=== PATIENT | female | born 1945 | race Caucasian/White ===

== ENCOUNTER 2020-07-03 14:18 | Emergency (ER) | payer MEDICARE, BC, SELFPAY ==
[2020-07-03 14:20] VITALS: BP 185/69; PULSE 93; RESP 20; TEMP 36.4; O2SAT 98
--- NOTE | 2020-07-03 14:33 | ED.GENADULT ---
HPI - General Adult General Chief complaint: Extremity Injury, Upper Stated complaint: laceration to right thumb Time Seen by Provider: 07/03/20 14:20 Source: patient Mode of arrival: ambulatory Limitations: no limitations History of Present Illness HPI narrative: Patient is a 74-year-old female who presents with skin avulsion of the right thumb that occurred while using her mandolin cooking device patient notes aching pain difficulty getting the bleeding to stop notes her tetanus is not up-to-date presents in no distress denies other complaints or concerns Related Data Allergies Allergy/AdvReac Type Severity Reaction Status Date / Time codeine Allergy Muscle Pain Verified 07/03/20 14:23 Review of Systems Review of Systems: Narrative: CONSTITUTIONAL: Denies fever, chills, or sweats. ENT: Denies rhinorrhea, congestion, sore throat, or otalgia. RESPIRATORY: Denies cough or dyspnea. SKIN: Positive for skin avulsion Plan MUSCULOSKELETAL: Denies joint pain NEUROLOGIC: Denies numbness, or weakness. PSYCHIATRIC: Denies anxiety or depression. [facility] Past Medical History Medical History (Updated 07/03/20 @ 14:38 by Solitario Paz PA-C) Obesity Social History Social History (Updated 07/03/20 @ 14:36 by Solitario Paz PA-C) Smoking status: Never smoker Exam Narrative: Exam Narrative: GENERAL: Well-appearing, well-nourished, and in no acute distress. HEAD: Normocephalic, atraumatic. EYES: PERRLA and EOMI. ENT: Nares clear, no rhinorrhea or epistaxis. Mucous membranes moist. EXTREMITIES: Normal range of motion. No edema. SKIN: Warm, dry, no rash. 1 cm skin avulsion that is superficial to the distal right thumb NEURO: No focal deficits. Alert and oriented x3.Neurovascularly intact PSYCH: Normal mood and affect. Course Course Emergency Course: Patient in the room in no distress aware of case findings treatment plan diagnosis Vital Signs Vital signs: Vital Signs Temperature 97.6 F 07/03/20 14:20 Pulse Rate 93 07/03/20 14:20 Respiratory Rate 20 07/03/20 14:20 Blood Pressure 185/69 H 07/03/20 14:20 Pulse Oximetry 98 07/03/20 14:20 Temperature 97.6 F 07/03/20 14:20 Pulse Rate 93 07/03/20 14:20 Respiratory Rate 20 07/03/20 14:20 Blood Pressure 185/69 H 07/03/20 14:20 Pulse Oximetry 98 07/03/20 14:20 Procedures Other Procedure Procedure 1: Other Procedure: let and surgicell applied with hemostasis acheived Medical Decision Making MDM Narrative Medical decision making narrative: Patients injury or pain is consistent with musculoskeletal etiology. No signs of neurological or vascular compromise on exam. Compartments and tisues are soft without signs of compartment syndrome. Pain is felt appropriate for further evaluation on an outpatient basis. Vital Signs Vital Signs: Vital Signs Temperature 97.6 F 07/03/20 14:20 Pulse Rate 93 07/03/20 14:20 Respiratory Rate 20 07/03/20 14:20 Blood Pressure 185/69 H 07/03/20 14:20 Pulse Oximetry 98 07/03/20 14:20 Temperature 97.6 F 07/03/20 14:20 Pulse Rate 93 07/03/20 14:20 Respiratory Rate 20 07/03/20 14:20 Blood Pressure 185/69 H 07/03/20 14:20 Pulse Oximetry 98 07/03/20 14:20 Discharge Plan Discharge Clinical Impression: Avulsion of skin Patient Disposition: Home, Self-Care Condition: Stable Instructions: Antibiotic Form, Skin Avulsion (ED) Additional Instructions: Follow up with primary care in the next 7 days for reevaluation return if symptoms worsen or concerns, any increase in redness swelling pain or fever over 100.5 Follow patient education sheets clean with mild soapy water and apply antibiotic ointment and clean dressing at least three times daily Follow-up/Referrals: Fritz Murillo Jr., MD [Physician] - PHYSICIAN,ASSISTANT MERCHANDISE MANAGER [Primary Care Provider] -
[2020-07-03] MEDS: TETANUS,DIPHTHERIA,AC PERTUSSIS ADULT (0.5 ML) BOOSTRIX IM (14:44)
[2020-07-03] MEDS: LIDOCAINE, EPINEPHRINE, TETRACAINE VISCOUS SOLN 3 ML TOPICAL (14:44)
[2020-07-03] MEDS: CELLULOSE OXIDIZED 2 x 14 INCH 1 PKT XX (14:44)
== END 2020-07-03 15:40 | disposition home or self-care (01) ==
LOC: ANHED 15:42
PROVIDERS: Emergency Provider Emergency Medicine
DX: S61.001A Unspecified open wound of right thumb without damage to nail, initial encounter (principal); E66.9 Obesity, unspecified; Z68.41 Body mass index [BMI] 40.0-44.9, adult; Z23 Encounter for immunization; W27.4XXA Contact with kitchen utensil, initial encounter
CPT/HCPCS: 12001; 90471; 90715; 99282

== ENCOUNTER 2020-10-15 10:30 | Outpatient (CLI) | payer MEDICARE, BC, SELFPAY ==
[2020-10-15 11:00] LABS: Basophils Percent Auto 0.3 % (0.2-1.2); Eosinophils Percent Auto 1.2 % (0-4.4); Hemoglobin 13.5 g/dL (12.0-15.0); Immature Granulocyte Absolute 0.03 K/mm3 (0.00-0.031); Immature Granulocyte Percent A 0.9 % (0-0.5); Immature Platelet Fraction Pct 7.6 % (0.9-11.2); Lymphocytes Percent Auto 39.8 % (18.3-44.2); Mean Corpuscular HGB Conc 33.8 g/dl (32-36); Mean Corpuscular Hemoglobin 30.5 pg (26-34); Mean Corpuscular Volume 90.3 fl (80-100); Mean Platelet Volume 11.3 fl (7.4-10.4); Monocytes Absolute Auto 0.7 K/mm3 (0.1-0.6); Monocytes Percent Auto 21.7 % (2.6-8.5); Neutrophils Absolute Auto 1.2 K/mm3 (1.3-6.7); Neutrophils Percent Auto 36.1 % (45.5-73.1); Platelet Count Result 113 k/mm3 (150-375); Red Blood Count 4.43 M/mm3 (4.2-5.4); Red Cell Distribution Width 13.1 % (11.5-14.5); White Blood Count 3.3 K/mm3 (4.5-10.0)
[2020-10-15 11:50] LABS: Alanine Aminotransferase 22 U/L (4-35); Albumin Level 3.9 g/dL (3.5-5.1); Alkaline Phosphatase 54 U/L (38-126); Anion Gap 8 mmol/L (8-16); Aspartate Amino Transferase 38 U/L (14-36); Bilirubin,Total 1.8 mg/dL (0.2-1.3); Blood Urea Nitrogen 13 mg/dL (7-17); Calcium 9.3 mg/dL (8.4-10.2); Carbon Dioxide 23 mmol/L (22-30); Chloride 110 mmol/L (98-107); Cholesterol 192 mg/dL (0-200); Estimated Glomerular Filt Rate > 60; Glucose 106 mg/dL (65-105); HDL Direct 59 mg/dL; Sodium 141 mmol/L (137-145); Triglycerides 93 mg/dL (<150)
[2020-10-15 12:00] LABS: LDL Cholesterol Direct 80 mg/dL
[2020-10-15 13:12] LABS: Hemoglobin A1C 5.6 % (<5.7)
== END 2020-10-15 10:31 | disposition home or self-care (01) ==
PROVIDERS: PCP Physician Assistant; Visit Provider Physician Assistant
DX: E11.9 Type 2 diabetes mellitus without complications (principal)
CPT/HCPCS: 36415; 80053; 80061; 83036; 84443; 85025; 85055

== ENCOUNTER 2020-10-27 10:36 | Outpatient (CLI) | payer MEDICARE, BC, SELFPAY ==
--- NOTE | ~2020-10-27 | MM_ITS ---
EXAMINATION: MM screening franky BI w guillermina HISTORY: Screening mammogram TECHNIQUE: Craniocaudal and mediolateral oblique 3-D tomosynthesis images were obtained and synthetic 2-D images were generated. CAD analysis was submitted and interpreted. COMPARISON: No prior mammogram is available for comparison at this institution. BREAST PARENCHYMAL COMPOSITION: The breasts are almost entirely fatty. FINDINGS: There is no evidence of suspicious mass, calcification, or architectural distortion to sugg est malignancy in either breast. There has been no suspicious interval change. IMPRESSION: 1. No mammographic evidence of malignancy. 2. Recommend routine screening mammography in one year. BI-RADS Category 1: Negative Reviewed, dictated and finalized at location A.
== END 2020-10-27 10:37 | disposition home or self-care (01) ==
LOC: ANHIMG 10:40
PROVIDERS: PCP Physician Assistant; Visit Provider Physician Assistant
DX: Z12.31 Encounter for screening mammogram for malignant neoplasm of breast (principal)
CPT/HCPCS: 77063; 77067

== ENCOUNTER 2020-12-28 15:56 | Outpatient (CLI) | payer MEDICARE, BC, SELFPAY ==
[2020-12-28 16:15] LABS: Basophils Percent Auto 0.2 % (0.2-1.2); Eosinophils Absolute Auto 0.1 K/mm3 (0-0.3); Eosinophils Percent Auto 1.5 % (0-4.4); Hematocrit 37.7 % (37.0-47.0); Hemoglobin 12.9 g/dL (12.0-15.0); Immature Granulocyte Absolute 0.12 K/mm3 (0.00-0.031); Immature Granulocyte Percent A 2.9 % (0-0.5); Lymphocytes Absolute Auto 1.45 K/mm3 (0.9-3.2); Lymphocytes Percent Auto 35.5 % (18.3-44.2); Mean Corpuscular HGB Conc 34.2 g/dl (32-36); Mean Corpuscular Volume 90.6 fl (80-100); Mean Platelet Volume 10.1 fl (7.4-10.4); Monocytes Absolute Auto 0.9 K/mm3 (0.1-0.6); Monocytes Percent Auto 21.1 % (2.6-8.5); Neutrophils Absolute Auto 1.6 K/mm3 (1.3-6.7); Neutrophils Percent Auto 38.8 % (45.5-73.1); Platelet Count Result 137 k/mm3 (150-375); Red Blood Count 4.16 M/mm3 (4.2-5.4); Red Cell Distribution Width 13.7 % (11.5-14.5); White Blood Count 4.1 K/mm3 (4.5-10.0)
[2020-12-28 16:35] LABS: Alanine Aminotransferase 27 U/L (4-35); Albumin Level 3.9 g/dL (3.5-5.1); Alkaline Phosphatase 89 U/L (38-126); Anion Gap 6 mmol/L (8-16); Aspartate Amino Transferase 34 U/L (14-36); Bilirubin,Total 1.1 mg/dL (0.2-1.3); Blood Urea Nitrogen 12 mg/dL (7-17); Calcium 9.8 mg/dL (8.4-10.2); Carbon Dioxide 25 mmol/L (22-30); Chloride 107 mmol/L (98-107); Estimated Glomerular Filt Rate > 60; Glucose 157 mg/dL (65-110); Potassium 3.8 mmol/L (3.4-5.0); Sodium 138 mmol/L (137-145)
== END 2020-12-28 15:57 | disposition home or self-care (01) ==
PROVIDERS: PCP Physician Assistant; Visit Provider Physician Assistant
DX: L03.115 Cellulitis of right lower limb (principal)
CPT/HCPCS: 36415; 80053; 85025

== ENCOUNTER → 2021-04-20 10:28 | Outpatient (CLI) | payer MEDICARE, BC, SELFPAY ==
--- NOTE | ~2021-04-20 | DEXA_ITS ---
Bone Density Report Name: JORY SMITH Age: 75 Sex: Female Ethnicity: White Date of : 1945 Indication: postmenopausal; screening for osteoporosis; height loss; prior fracture; Referring Provider: ROYAL, WILLOW Huffman Study: Bone densitometry was performed. Exam Date: April 20, 2021 Accession number: [id number] Bone Density: Region BMD T-score Z-score Classification AP Spine (L1-L4) 1.196 1.4 3.7 Normal Femoral Neck (Left) 0.908 0.5 2.5 Normal Total Hip (Left) 1.092 1.2 2.9 Normal Femoral Neck (Right) 0.829 -0.2 1.8 Normal Total Hip (Right) 1.066 1.0 2.7 Normal Total Hip Mean 1.079 1.1 2.8 Normal World Health Organization criteria for BMD impression classify patients as: Normal (T-score at or above -1.0), Osteopenia (T-score between -1.0 and -2.5), or Osteoporosis (T-score at or below -2.5). 10-year Fracture Risk: FRAX not reported because: All T-scores for Spine Total, Hip Total, Femoral Neck at or above -1.0 Clinical Information Provided by Patient: Has had a low trauma fracture Has used the following medications: Vitamin D Patient maximum height was 69.5 Menopause Age: 59 No regular weight bearing exercise Drinks caffeinated beverages Onset of menses at age 14 Number of children 0 Impression: The patient has normal bone mass. The patient has risk factors, including: previous fracture. Discussion: BONE DENSITY IS ABOVE THE MINIMUM DESIRABLE LEVEL AT ALL SKELETAL SITES TESTED. This patient?s bone mineral density is above the minimum desirable level (T-score -1.0 or better) at all sites measured. The patient should follow a healthful lifestyle (good nutrition with adequate calcium and vitamin D, and appropriate weight-bearing exercise). Follow-Up: Consider repeating this study in 5 years or sooner if there is some new clinical indication. Reported by: RIA on 04/20/2021 11:18:00 AM. Reviewed, dictated and finalized at location ARishabh REHMAN
== END ==
PROVIDERS: PCP Physician Assistant; Visit Provider Physician Assistant
DX: Z78.0 Asymptomatic menopausal state (principal)
CPT/HCPCS: 77080

== ENCOUNTER 2022-06-20 23:32 | Emergency (ER) | payer MEDICARE, BC, SELFPAY ==
[2022-06-20 23:45] VITALS: BP 200/94; PULSE 84; RESP 20; TEMP 36.8; O2SAT 100
[2022-06-21 00:37] LABS: Basophils Percent Auto 0.3 % (0.2-1.2); Eosinophils Percent Auto 0.5 % (0-4.4); Hematocrit 37.4 % (37.0-47.0); Hemoglobin 12.6 g/dL (12.0-15.0); Immature Granulocyte Absolute 0.06 K/mm3 (0.00-0.031); Immature Granulocyte Percent A 1.5 % (0-0.5); Immature Platelet Fraction Pct 4.1 % (0.9-11.2); Lymphocytes Absolute Auto 1.33 K/mm3 (0.9-3.2); Lymphocytes Percent Auto 33.9 % (18.3-44.2); Mean Corpuscular HGB Conc 33.7 g/dl (32-36); Mean Corpuscular Volume 91.9 fl (80-100); Monocytes Percent Auto 24.2 % (2.6-8.5); Neutrophils Absolute Auto 1.6 K/mm3 (1.3-6.7); Neutrophils Percent Auto 39.6 % (45.5-73.1); Platelet Count Result 133 k/mm3 (150-375); Red Blood Count 4.07 M/mm3 (4.2-5.4); Red Cell Distribution Width 13.4 % (11.5-14.5); White Blood Count 3.9 K/mm3 (4.5-10.0)
[2022-06-21 00:51] LABS: Alanine Aminotransferase 33 U/L (6-35); Albumin Level 4.1 g/dL (3.5-5.1); Alkaline Phosphatase 96 U/L (38-126); Anion Gap 4 mmol/L (8-16); Aspartate Amino Transferase 44 U/L (14-36); Bilirubin,Total 1.2 mg/dL (0.2-1.3); Blood Urea Nitrogen 15 mg/dL (7-17); Carbon Dioxide 29 mmol/L (22-30); Chloride 108 mmol/L (98-107); Estimated CRCL calculation 88 ml/min; Estimated Glomerular Filt Rate > 60; Glucose 130 mg/dL (65-110); Potassium 3.9 mmol/L (3.4-5.0); Sodium 141 mmol/L (137-145)
[2022-06-21 00:57] LABS: Ethanol < 10 mg/dL (<10)
--- NOTE | 2022-06-21 01:15 | PC.NURSE ---
pt states she started having vaginal bleeding yesterday evening. states has had intermittent bleeding for past 2 months and has a D&C scheduled on 06/27. states the bleeding has slowed down a lot. denies any abd pain or problems with urination/bowels.
[2022-06-21 01:38] LABS: Add Urine Microscopic? YES; Appearance Urine Cloudy (Clear); Bilirubin Urine Negative (Negative); Blood Urine 3+ (Negative); Color Urine Brown (Yellow); Glucose Urine UA Negative (Negative); Ketones Urine Negative (Negative); Leukocyte Esterase Ur Negative LEU/UL (Negative); Nitrate Urine Negative (Negative); Protein Urine 1+ mg/dL (Negative); pH Urine 7.5 (5.0-9.0)
[2022-06-21 01:42] LABS: RBC Urine >75 /hpf (0-2); Squamous Epithelial Cell Urine Occasional /hpf (Few)
--- NOTE | 2022-06-21 01:46 | ED.GENADULT ---
HPI - General Adult General Chief complaint: Vaginal Bleeding Stated complaint: vaginal bleeding Time Seen by Provider: 06/21/22 00:46 Source: patient and old records reviewed Mode of arrival: ambulatory Limitations: no limitations History of Present Illness HPI narrative: Patient is a 76-year-old female who presents to the ED with report of vaginal bleeding. Patient reports she developed slight vaginal bleeding when she used the restroom tonight. She noticed a few small clots in the blood, which dropped into the toilet. She denied having any pain associated with the bleeding. No rectal bleeding. No dysuria, hematuria. Patient does report she had an episode of vaginal spotting in May of this year. She was seen at [facility] and is scheduled to undergo D&C with what sounds like a hysteroscopy/endometrial biopsy under Dr. Lee next Sunday. They did attempt to perform hysteroscopy in the office, but this was poorly tolerated by patient. Patient states she has not had any bleeding since that time. She denies any dizziness, lightheadedness, nausea, vomiting, fevers, current pain. Related Data Home Medications Medication Instructions Recorded Confirmed No Home Medications 11/23/20 11/23/20 Allergies Allergy/AdvReac Type Severity Reaction Status Date / Time codeine Allergy Severe Muscle Pain Verified 11/23/20 14:30 Review of Systems Review of Systems: CONSTITUTIONAL: Denies fever, chills, or sweats. CARDIOVASCULAR: Denies chest pain. RESPIRATORY: Denies dyspnea. GASTROINTESTINAL: Denies abdominal pain, nausea, vomiting, rectal bleeding, melena, or diarrhea. GENITOURINARY: See HPI. MUSCULOSKELETAL: Denies back pain, joint pain, or myalgia. NEUROLOGIC: Denies dizziness, lightheadedness, headache, numbness, or weakness. All systems reviewed & are unremarkable except as noted in HPI and below PMFSH Past Medical History Medical History Obesity Social History Social History Smoking status: Never smoker Alcohol intake: never Substance use: never Substance use type: does not use Living arrangements: with family Spiritual care concerns: No Exam Narrative: GENERAL: Well appearing, obese, non-toxic, in no acute distress. HEAD: Normocephalic, atraumatic. NECK: Supple. No adenopathy, no masses. RESPIRATORY: Airway patent, respirations nonlabored. Clear to auscultation bilaterally, no rales, rhonchi, wheezing. CARDIOVASCULAR: Regular rate and rhythm without murmurs, rubs, or gallops. Radial pulses 2+ and equal bilaterally. ABDOMINAL: Soft, nontender, nondistended, no hepatosplenomegaly. Normoactive BS. MUSCULOSKELETAL: Moves all extremities. Strength/ROM intact without gross deformities. SKIN: Warm, dry, normal color. No rashes. NEURO: A&O X3. Speech clear. Cranial nerves II-XII grossly intact. Steady gait. No ataxic movements. PSYCHIATRIC: Appropriate mood and affect. Normal interaction. Course Vital Signs Vital signs: Vital Signs Temperature 98.3 F 06/20/22 23:45 Pulse Rate 84 06/20/22 23:45 Respiratory Rate 20 06/20/22 23:45 Blood Pressure 200/94 H 06/20/22 23:45 Pulse Oximetry 100 06/20/22 23:45 Oxygen Delivery Room Air 06/20/22 23:45 Temperature 98.3 F 06/20/22 23:45 Pulse Rate 73 06/21/22 02:00 Respiratory Rate 16 06/21/22 02:00 Blood Pressure 149/57 H 06/21/22 02:00 Pulse Oximetry 100 06/21/22 02:00 Oxygen Delivery Room Air 06/20/22 23:45 Medical Decision Making MDM Narrative Medical decision making narrative: Patient presented to ED with episode of vaginal bleeding. History of recent similar symptoms and scheduled to undergo diagnostic procedures under Dr. Lee next Sunday. By the time of my evaluation in the ED, patient reported that her bleeding had improved. She used the restroom prior to my eval and denied h
[2022-06-21 01:53] LABS: Amphetamine Screen Urine Negative (Negative); Barbiturate Screen Urine Negative (Negative); Benzodiazepines Screen Urine Negative (Negative); Cannabinoid Screen Urine Negative (Negative); Cocaine Screen Urine Negative (Negative); Methadone Screen Urine Negative (Negative); Opiate Screen Urine Negative (Negative); Phencyclidine Screen Urine Negative (Negative)
[2022-06-21 02:00] VITALS: BP 149/57; PULSE 73; RESP 16; O2SAT 100
[2022-06-21 02:01] LABS: Influenza A QL RT-PCR Negative (Negative); Influenza B QL RT-PCR Negative (Negative); SARS-CoV-2 RNA PCR Negative
== END 2022-06-21 02:11 | disposition home or self-care (01) ==
PROVIDERS: Emergency Medicine; Emergency Provider Physician Assistant; PCP Family Medicine
DX: N93.8 Other specified abnormal uterine and vaginal bleeding (principal); Z20.822 Contact with and (suspected) exposure to COVID-19; E66.9 Obesity, unspecified; Z68.34 Body mass index [BMI] 34.0-34.9, adult; R82.998 Other abnormal findings in urine
CPT/HCPCS: 36415; 80053; 80307; 81001; 84443; 85025; 85055; 85461; 86850; 86900; 86901; 87077; 87086; 87186; 87636; 99284

== ENCOUNTER 2022-06-23 14:42 | Emergency (ER) | payer MEDICARE, BC, SELFPAY ==
--- NOTE | ~2022-06-23 | XR_ITS ---
EXAMINATION: XR foot LT min 3V DATE: 06/23/2022 15:46 INDICATION: Left foot pain TECHNIQUE: Dorsoplantar, lateral, and 2 oblique views of the left foot were obtained. COMPARISON: None. FINDINGS: No fracture is identified. There is osteoarthritis of multiple interphalangeal joints, meta tarsophalangeal joints, and tarsometatarsal joints. There is mild soft tissue swelling of the lateral /proximal foot. A plantar calcaneal enthesophyte is noted. IMPRESSION: 1. Polyarticular osteoarthritis. 2. Mild soft tissue swelling Reviewed, dictated and finalized at location B. [employer]
[2022-06-23 14:52] VITALS: BP 179/76; PULSE 72; RESP 20; TEMP 36.3; O2SAT 100
--- NOTE | 2022-06-23 16:50 | ED.EXTPRO ---
HPI - Extremity Problem General Chief complaint: Extremity Problem,Nontraumatic Stated complaint: left foot pain Time Seen by Provider: 06/23/22 15:31 Source: patient Mode of arrival: ambulatory Limitations: no limitations History of Present Illness HPI Narrative: Patient is a 76-year-old female who presents to the ED with report of left foot pain. Patient reports she developed pain in her left dorsal lateral foot last night. Pain worse with weightbearing. She denies any fall or injury. Denies any numbness or tingling. She has taken ibuprofen without much relief. Denies any fever, redness, wounds. Patient has an appointment with the air boatswain on 07/05. Related Data Home Medications Medication Instructions Recorded Confirmed No Home Medications 11/23/20 06/21/22 Allergies Allergy/AdvReac Type Severity Reaction Status Date / Time codeine Allergy Severe Muscle Pain Verified 06/23/22 16:21 Review of Systems Review of Systems: CONSTITUTIONAL: Denies fever, chills, or sweats. SKIN: Denies rash or itching. MUSCULOSKELETAL: See HPI. NEUROLOGIC: Denies tingling, numbness, or weakness. All systems reviewed & are unremarkable except as noted in HPI and below PMFSH Past Medical History Medical History Obesity Social History Social History Smoking status: Never smoker Second hand tobacco smoke exposure: No Alcohol intake: never Substance use: never Substance use type: does not use Living arrangements: alone Spiritual care concerns: No Exam Narrative: GENERAL: Well appearing, morbidly obese, non-toxic, in no acute distress. HEAD: Normocephalic, atraumatic. NECK: Supple. No adenopathy, no masses. RESPIRATORY: Airway patent, respirations nonlabored. CARDIOVASCULAR: Regular rate and rhythm without murmurs, rubs, or gallops. Pedal pulses 2+ and equal bilaterally. MUSCULOSKELETAL: Moves all extremities. Strength/ROM intact without gross deformities. Very mild tenderness to palpation along lateral edge of L foot, no localized tenderness over 5th MT. Minimal swelling. No tenderness along distal MTs/1st MTP joint. No tenderness along lateral/medial malleoli. Full ROM of L foot. SKIN: Warm, dry, normal color. No rashes. NEURO: A&O X3. Speech clear. Cranial nerves II-XII grossly intact. No ataxic movements. PSYCHIATRIC: Appropriate mood and affect. Normal interaction. Course Vital Signs Vital signs: Vital Signs Temperature 97.4 F L 06/23/22 14:52 Pulse Rate 72 06/23/22 14:52 Respiratory Rate 20 06/23/22 14:52 Blood Pressure 179/76 H 06/23/22 14:52 Pulse Oximetry 100 06/23/22 14:52 Oxygen Delivery Room Air 06/23/22 14:52 Temperature 97.6 F 06/23/22 17:24 Pulse Rate 67 06/23/22 17:24 Respiratory Rate 17 06/23/22 17:24 Blood Pressure 176/67 H 06/23/22 17:24 Pulse Oximetry 100 06/23/22 17:24 Oxygen Delivery Room Air 06/23/22 14:52 MDM - Extremity (Nontraumatic) MDM Narrative Medical decision making narrative: Patient's pain is consistent with musculoskeletal etiology. No injury. No signs of cellulitis. Low suspicion for gout, no focal tenderness over joint. No signs of neurologic or vascular compromise on physical examination. Compartments are soft without signs of compartment syndrome. XR showing arthritis, no fx. Pain is consistent with exam. Patient is felt to be stable for discharge home and further outpatient management and treatment. KELSEY bandage provided. Patient has appt with Podiatry on 07/05/22. Discussed RICE Tx and return precautions. She agrees with plan. Medical Records Attestation: I reviewed the patient's medical records. Imaging Data Attestation: I personally reviewed and interpreted this imaging study as follows: Radiologist's impression: ITS Impressions Foot X-Ray 06/23/22 15:57 IMPRESSION: 1. Polyarticular osteoarthritis
[2022-06-23 17:24] VITALS: BP 176/67; PULSE 67; RESP 17; TEMP 36.4; O2SAT 100
== END 2022-06-23 17:25 | disposition home or self-care (01) ==
PROVIDERS: Emergency Provider Physician Assistant
DX: M79.672 Pain in left foot (principal); E66.9 Obesity, unspecified; Z68.41 Body mass index [BMI] 40.0-44.9, adult; M19.072 Primary osteoarthritis, left ankle and foot
CPT/HCPCS: 73630; 99283

== ENCOUNTER 2022-06-27 00:25 | Day surgery (SDC) | payer MEDICARE, BC, SELFPAY ==
[2022-06-21 10:28] VITALS: BMI 34.4
--- NOTE | 2022-06-21 10:31 | PC.NURSE ---
Report to the Outpatient Waiting Room, entrance under the green pavilion located off [facility], at time __0830 on date ___06/27/22____. Planned Procedure Time: ___1030 . Time changes happen often and if your time is changed the preop area will call you the afternoon before. - You and your visitor will be asked to self-screen and do not enter if you have any COVID symptoms. - Only one visitor is requested with a max of two and NO children visitors are allowed at this time. - The patient visitor may be requested to leave or wait in car when not with patient due to distancing restrictions. - A mask is optional within the hospital at this time. Patients may have clear liquids (water, carbonated beverages, clear teas, apple juice) until 3 hours prior to surgery (0730 AM) with a maximum of 20 ounces. - No food from midnight until time of surgery - Infants may have breast milk until 4 hours before surgery, infant formula 6 hours prior to surgery. - Children will be allowed to drink immediately following surgery. If applicable, please bring a bottle or sippy cup to assist with drinking. Juice, water, soda, and popsicles are readily available. For infants on formula, please bring formula the day of surgery. Pacifiers are allowed. Take the following medications with a SIP of water the morning of surgery: N/A DO NOT STOP ANY OF YOUR OTHER PRESCRIPTION MEDICATIONS PRIOR TO SURGERY ?EXCEPT THE FOLLOWING Medications to discontinue per physician N/A Date to take last dose Please no make-up, nail turkmen, hairspray, perfume, deodorant, or body powder the day of surgery. No jewelry (including any body piercings) or valuables the day of surgery, leave them at home. Please take a shower or bath the night before, or the morning of, surgery with an antibacterial soap. Wear comfortable, loose fitting clothing. Children are encouraged to wear pajamas. - Jewelry must be removed prior to entering the operating room. Rings and piercings that are not removed may be cut off. - The hospital will not accept responsibility for valuables. - Please leave all valuables, including medications, at home the day of surgery. If you are going home after surgery, a licensed screw driver operator must drive you home. - NO public transportation without another adult if you receive anesthesia. - We recommend that an adult stay with you for 24 hours following discharge. - We also recommend that you do not drive, make important decision, drink alcoholic beverages, or take any drugs that were not prescribed by your health care provider for at least 24 hours after your discharge time. Follow any additional instructions given to you from your surgeon. If you or anyone in your household have experienced Covid symptoms in the past week, please notify your surgeon or the nurse liaison at the phone number below for possible testing. Telephone instructions given to _PATIENT_and asked if any additional questions and then verbalized understanding. Patient advised to call surgeon office or pre surgery nurse liaison [phone] if any additional questions.
--- NOTE | ~2022-06-27 | US_ITS ---
EXAMINATION: US guide intraoperative DATE: 06/27/2022 11:15 INDICATION: Hysteroscopic endometrial biopsy TECHNIQUE: Multiple grayscale and Doppler ultrasound images of the pelvis were obtained utilizing tra nsvaginal probe during gynecologic procedure performed by Dr. Arthur. Radiologist was not present for t he procedure or imaging. COMPARISON: None FINDINGS: The uterus measures 7.1 x 5.0 x 4.5 cm. There is a 2.7 x 1.8 x 2.3 cm anechoic fluid collection withi n the endometrial canal at the uterine fundus. The fluid collection has an irregular contour with a c ouple focal small posterior outpouchings at the right side of the fundus. The exclusive of the endome trial fluid there is thickening of at least the anterior side of the endometrial complex which measur es up to 5 mm in thickness at the fundus. Endometrial complex posterior to the fluid appears nonunifo rm in place is difficult to discern but in at least one location is also thickened to approximately 5 mm . The right ovary is not visualized The left ovary measures 2.3 x 1.3 cm. There is no free fluid in the pelvis. IMPRESSION: 1. 2.7 x 1.8 x 2.3 cm irregular anechoic fluid collection within the endometrial canal at the uterine fundus with inhomogeneous thickening of portions of the surrounding anterior and posterior endometri al complex. Correlate with procedure note and pathology of reported endometrial biopsy for further de tail. Reviewed, dictated and finalized at location A. [facility] IMPRESSION: 1. 2.7 x 1.8 x 2.3 cm irregular anechoic fluid collection within the endometria l canal at the uterine fundus with inhomogeneous thickening of portions of the surrounding anterior and posterior endometrial complex. Correlate with procedur e note and pathology of reported endometrial biopsy for further detail.
[2022-06-27] MEDS: ACETAMINOPHEN 500 MG TABLET 1000 MG PO (09:00)
[2022-06-27] MEDS: LACTATED RINGERS 1,000 ML 30 ML IV CONT (09:00)
[2022-06-27 09:21] VITALS: BP 153/76; PULSE 83; RESP 14; TEMP 37.2; O2SAT 100
[2022-06-27 09:35] LABS: Glucose Point of Care 113 mg/dl (65-105)
--- NOTE | 2022-06-27 09:43 | P.PNAN_ITS ---
Anes - Initial Pre Proc Eval Procedure: Operation Date: 06/27/22 10:30 Proposed Procedures p Hysteroscopy with Dilation and Curettage, Endometrial Biopsy, Ultrasound under Anesthesia - Reina Lee MD Date/Time: 06/27/22 09:43 Surgeon: Reina Lee MD Pre Op Diagnosis: Post Menopausal Bleeding Patient Data Age: 76 Gender: F Height: 1.73 m Weight: 126.5 kg Last Vital Signs Temp 37.2 C 06/27/22 09:21 Pulse 83 06/27/22 09:21 Resp 14 06/27/22 09:21 BP 153/76 H 06/27/22 09:21 Pulse Ox 100 06/27/22 09:21 O2 Del Method Room Air 06/27/22 09:21 Allergies Allergy/AdvReac Type Severity Reaction Status Date / Time codeine Allergy Severe Muscle Pain Verified 06/27/22 09:27 Home Medications Medication Instructions Recorded Confirmed Type No Home Medications 11/23/20 06/21/22 History Laboratory Tests 06/27/22 09:30 POC Capillary Glucose 113 mg/dl H mg/dl (65-105) Patient hx anesthesia problems: none Family hx anesthesia problems: none Results Review: All pre-operative results and documents have been reviewed as part of the pre- operative evaluation. [facility] Past Medical History Medical History (Updated 06/27/22 @ 09:44 by Simone Houston MD) Diabetes Morbid obesity Social History Social History Smoking status: Never smoker Second hand tobacco smoke exposure: No Alcohol intake: never Substance use: never Substance use type: does not use Living arrangements: alone Spiritual care concerns: No Anes - Eval Final PreProcedure Day of Procedure 06/27/22 09:43 Patient weight: morbidly obese Heart: regular rate and rhythm Lungs: clear to auscultation Airway: Mallampati scale class II Neurological: alert and oriented Last oral intake: >/= 8 hours ASA classification: III Emergent: no Anesthetic plan: proceed Anesthesia type and monitoring: general GIVS and standard monitoring Results Review: All pre-operative results and documents have been reviewed as part of the pre- operative evaluation. Informed Consent: The patient's anesthetic plan and its attendant risks and benefits were discussed with the patient/family/POA. Questions were solicited and answers provided to the satisfaction of the patient/family/POA.
--- NOTE | 2022-06-27 10:32 | WPDHPUPDATE1 ---
History and Physical Update Update Date/Time: 06/27/22 10:32 History and Physical has been reviewed, including an updated exam of the patient. There are NO changes in the patient's condition. Risks, benefits, and alternatives have been discussed and questions answered. Patient agrees to proceed with procedure.
[2022-06-27] MEDS: LIDOCAINE HCL 1% LOCAL INJ 20 ML VIAL 10 ML INFILTRATE (10:39)
[2022-06-27 11:30] VITALS: BP 116/96; PULSE 72; RESP 16; O2SAT 96
--- NOTE | 2022-06-27 11:32 | W.PM.PROC2 ---
Procedure Note - Detailed Date of Procedure 06/27/22 Pre-op Diagnosis Post Menopausal Bleeding Post-op Diagnosis Same Procedure Performed Hysteroscopy D&C Surgeon Reina Lee MD Anesthesia MAC Indications abnormal uterine bleeding Findings Friable soft endometrial tissue that was thickened and a bizarre appearing. normal vulva vagina and cervix Description of Procedure the patient was taken the operating room. She was prepped and draped in the dorsal lithotomy position after induction of mac anesthesia. A speculum was placed in the vagina. The cervix was grasped with a tenaculum. The cervix was dilated about 1 cm. The hysteroscope was inserted. The intrauterine cavity and endocervix were evaluated. Hysteroscope was withdrawn. A medium-size curette was used to curettage all the surfaces were within the endometrial cavity. the sample was collected on Telfa and sent to pathology. The hysteroscope was reinserted and the above findings were noted. Patient tolerated the procedure well. The speculum and tenaculum were removed. She was taken recovery room in stable condition. Sponge lap and needle counts were correct x2. Estimated Blood Loss 40 Drains No Packing No Pathology Yes Complications No immediate complications Condition Stable Disposition PACU
[2022-06-27 11:54] LABS: Glucose Point of Care 109 mg/dl (65-105)
[2022-06-27 11:55] VITALS: BP 133/67; PULSE 70; RESP 20
[2022-06-27 12:25] VITALS: BP 154/79; PULSE 67; RESP 18
[2022-06-27 12:43] VITALS: BP 155/78; PULSE 68; RESP 18
== END 2022-06-27 13:00 | disposition home or self-care (01) ==
PROVIDERS: Visit Provider Obstetrics & Gynecology
PROC: 0U5B8ZZ Destruction of Endometrium, Via Natural or Artificial Opening Endoscopic (ICD-10-PCS; CPT 58563; principal; 2022-06-27 10:30)
DX: C54.1 Malignant neoplasm of endometrium (principal); N95.0 Postmenopausal bleeding; E11.9 Type 2 diabetes mellitus without complications; E66.01 Morbid (severe) obesity due to excess calories; Z68.41 Body mass index [BMI] 40.0-44.9, adult
CPT/HCPCS: 58558; 76998; 82948; 88305; A9270; J2704; J3010; J7030; J7120

== ENCOUNTER 2022-09-29 11:38 | Outpatient (CLI) | payer MEDICARE, BC, SELFPAY ==
[2022-09-29 12:08] LABS: Basophils Percent Auto 0.4 % (0.2-1.2); Eosinophils Absolute Auto 0.1 K/mm3 (0-0.3); Eosinophils Percent Auto 2.1 % (0-4.4); Hematocrit 39.2 % (37.0-47.0); Hemoglobin 13.1 g/dL (12.0-15.0); Immature Granulocyte Absolute 0.02 K/mm3 (0.00-0.031); Immature Granulocyte Percent A 0.7 % (0-0.5); Immature Platelet Fraction Pct 4.1 % (0.9-11.2); Lymphocytes Percent Auto 42.3 % (18.3-44.2); Mean Corpuscular HGB Conc 33.4 g/dl (32-36); Mean Corpuscular Hemoglobin 29.4 pg (26-34); Mean Corpuscular Volume 87.9 fl (80-100); Monocytes Absolute Auto 0.8 K/mm3 (0.1-0.6); Monocytes Percent Auto 26.8 % (2.6-8.5); Neutrophils Absolute Auto 0.8 K/mm3 (1.3-6.7); Neutrophils Percent Auto 27.7 % (45.5-73.1); Platelet Count Result 148 k/mm3 (150-375); Red Blood Count 4.46 M/mm3 (4.2-5.4); Red Cell Distribution Width 14.5 % (11.5-14.5); White Blood Count 2.8 K/mm3 (4.5-10.0)
[2022-09-29 12:16] LABS: Cholesterol 172 mg/dL (0-200); HDL Direct 78 mg/dL; Triglycerides 68 mg/dL (<150)
[2022-09-29 12:27] LABS: LDL Cholesterol Direct 62 mg/dL
[2022-09-29 12:54] LABS: Free T4 Free Thyroxine 1.18 ng/mL (0.78-2.19)
[2022-09-29 12:57] LABS: Creatinine Urine 103.2 mg/dL
[2022-09-29 13:01] LABS: MALB Creatinine Ratio 8.6 mg/g (0-30); Microalbumin Urine Random 8.9 mg/L (0-16.7)
[2022-09-29 13:17] LABS: Hemoglobin A1C 5.5 % (<5.7)
[2022-10-05 15:25] LABS: Vitamin D 1,25 (OH)2 Total 39 pg/mL (18-72); Vitamin D2 1,25 (OH)2 <8 pg/mL; Vitamin D3 1,25 (OH)2 39 pg/mL
== END 2022-09-29 11:39 | disposition home or self-care (01) ==
LOC: ANHLAB 11:39
PROVIDERS: PCP Family Medicine; Visit Provider Family Medicine
DX: I10 Essential (primary) hypertension (principal); E11.9 Type 2 diabetes mellitus without complications; E03.9 Hypothyroidism, unspecified; E78.2 Mixed hyperlipidemia; E55.9 Vitamin D deficiency, unspecified
CPT/HCPCS: 36415; 80061; 82043; 82652; 83036; 84439; 84443; 85025; 85055

== ENCOUNTER 2022-10-06 15:09 | Outpatient (CLI) | payer MEDICARE, BC, SELFPAY ==
[2022-10-06 15:30] LABS: Hematocrit 39.7 % (37.0-47.0); Hemoglobin 13.2 g/dL (12.0-15.0); Mean Corpuscular HGB Conc 33.2 g/dl (32-36); Mean Corpuscular Hemoglobin 29.9 pg (26-34); Mean Corpuscular Volume 89.8 fl (80-100); Mean Platelet Volume 10.2 fl (7.4-10.4); Platelet Count Result 148 k/mm3 (150-375); Red Blood Count 4.42 M/mm3 (4.2-5.4); Red Cell Distribution Width 14.5 % (11.5-14.5); White Blood Count 3.3 K/mm3 (4.5-10.0)
[2022-10-06 15:38] LABS: Band Neutrophils Percent 1 % (0-6); Eosinophils Absolute Manual 0.03 K/mm3 (0.02-0.5); Eosinophils Percent Manual 1 % (0-4); Lymphocytes Absolute Manual 1.78 K/mm3 (1.1-4.5); Monocytes Absolute Manual 0.49 K/mm3 (0.1-0.90); Monocytes Percent Manual 15 % (3-9); Neutrophils Absolute Manual 0.99 K/mm3 (1.7-7.2); Neutrophils Percent Manual 29 % (46-73); Total Cells Counted 100
[2022-10-06 15:39] LABS: Atypical Lymphocytes Present; Platelet Estimate Adequate (Adequate); Schistocytes None Seen (NORMAL)
[2022-10-06 16:17] LABS: Alanine Aminotransferase 33 U/L (6-35); Albumin Level 4.3 g/dL (3.5-5.1); Alkaline Phosphatase 107 U/L (38-126); Anion Gap 4 mmol/L (8-16); Aspartate Amino Transferase 43 U/L (14-36); Bilirubin,Total 1.3 mg/dL (0.2-1.3); Blood Urea Nitrogen 16 mg/dL (7-17); Calcium 9.2 mg/dL (8.4-10.2); Carbon Dioxide 30 mmol/L (22-30); Chloride 107 mmol/L (98-107); Estimated Glomerular Filt Rate 48; Glucose 120 mg/dL (65-110); Potassium 4.8 mmol/L (3.4-5.0); Sodium 141 mmol/L (137-145)
[2022-10-10 01:17] LABS: CA-125 26 U/mL (<35)
== END 2022-10-06 15:10 | disposition home or self-care (01) ==
LOC: ANHLAB 15:12
PROVIDERS: PCP Family Medicine; Visit Provider Internal Medicine Hematology & Oncology
DX: C54.1 Malignant neoplasm of endometrium (principal)
CPT/HCPCS: 36415; 80053; 85025; 86304

== ENCOUNTER 2022-11-30 10:31 | Outpatient (CLI) | payer MEDICARE, BC, SELFPAY ==
[2022-11-30 11:10] LABS: Alanine Aminotransferase 28 U/L (6-35); Albumin Level 3.7 g/dL (3.5-5.1); Alkaline Phosphatase 91 U/L (38-126); Anion Gap 6 mmol/L (8-16); Aspartate Amino Transferase 37 U/L (14-36); Bilirubin,Total 1.7 mg/dL (0.2-1.3); Blood Urea Nitrogen 11 mg/dL (7-17); Calcium 8.6 mg/dL (8.4-10.2); Carbon Dioxide 26 mmol/L (22-30); Chloride 107 mmol/L (98-107); Estimated Glomerular Filt Rate > 60; Glucose 113 mg/dL (65-110); Potassium 3.8 mmol/L (3.4-5.0); Sodium 139 mmol/L (137-145)
== END 2022-11-30 10:32 | disposition home or self-care (01) ==
PROVIDERS: PCP Family Medicine; Visit Provider Family Medicine
DX: R19.7 Diarrhea, unspecified (principal); I10 Essential (primary) hypertension
CPT/HCPCS: 36415; 80053

== ENCOUNTER 2024-02-23 16:28 | Inpatient (IN) | payer MEDICARE, BC, SELFPAY ==
--- NOTE | ~2024-02-23 | XR_ITS ---
EXAMINATION: XR thoracic spine 2V, XR lumbar spine 2-3V DATE: 02/25/2024 14:36 INDICATION: T11-L1 fracture. TECHNIQUE: 1. Standing AP, PA, lateral and lateral swimmer's views of the thoracic spine were obtained. 2. AP, lateral and coned-down lateral lumbosacral views of the lumbar spine were obtained. COMPARISON: MRI dated 02/24/[address] dated 02/23/2024 FINDINGS: Chronic T6 compression fracture with unchanged <20% anterior vertebral body height loss. There is 40% anterior vertebral body height loss at and L1 burst fracture which appears relatively acute on the p rior studies. The T11 burst fracture is not clearly visualized on the lateral projection due to body habitus although the vertebral body height loss also approximately 40% on the prior imaging can be be tter appreciated on the AP view of the lumbar spine. 2-2 mm anterolisthesis L4 on L5. Multilevel mild to moderate disc height loss throughout the thoracic and lumbar spine greatest in the lumbar spine a t L3-L4 and L4-L5. External splinting instrumentation posterior to the patient. Visualized portion of the lungs are clear. No pleural effusion or pneumothorax. Heart size is normal. IMPRESSION: 1. Mild to moderate thoracic and lumbar spondylosis with no significant change in 40% anterior verteb ral body height loss at relatively recent T11 and L1 burst fractures. 2. Unchanged chronic mild T6 compression fracture. Reviewed, dictated and finalized at location A. IMPRESSION: 1. Mild to moderate thoracic and lumbar spondylosis with no significant change in 40% anterior vertebral body height loss at relatively recent T11 and L1 burs t fractures. 2. Unchanged chronic mild T6 compression fracture.
--- NOTE | ~2024-02-23 | CT_ITS ---
CT thoracic lumbar wo con Ordering provider: Leslie Donovan MD History: . mid back pain, fall . Comparison: None. Technique: CT thoracic and lumbar spine without contrast. Automated exposure control and iterative r econstruction technique were employed. The dose-length product was 1938.64 mGy-cm. FINDINGS: VERTEBRAE: Compression fracture of T11 with loss of volume of 50% and L1 with loss of volume of 50% w hich is most likely acute. MRI evaluation advised. Otherwise, Normal height and alignment. No subluxa tion is noted. Degenerative changes of the spine. DISC SPACES: Narrowing of the disc spaces in the mid and thoracic area.Narrowing of the disc L3-L4, L 4-L5 and L5-S1. No significant stenosis as visualized. Bilateral facet joint disease at the level of L3-L4. Left L5-S1 facet joint disease. Diffuse disc bulge at the level of L3-L4 and L4-L5 with narrowing of the right foramen. Diffuse disc bulge with bilateral narrowing of the foramina at the level of L5-S1. PARASPINOUS SOFT TISSUES: Normal. IMPRESSION: Compression fracture of T11 and L1 most likely acute. MRI evaluation advised. Multilevel degenerative disease involving the mid and lower thoracic area and in the lower lumbar are a. Reviewed, dictated and finalized at location A. IMPRESSION: Compression fracture of T11 and L1 most likely acute. MRI evaluation advised. Multilevel degenerative disease involving the mid and lower thoracic area and i n the lower lumbar area.
--- NOTE | ~2024-02-23 | MR_ITS ---
Procedure: MR thoracic spine wo con, MR lumbar spine wo/w con Ordering provider: Allison Tripp APRN History: . Compression fracture . Comparison: None. Technique: MRI thoracic spine without contrast. FINDINGS: SPINAL CORD: Normal. VERTEBRAL BODIES: Compression fracture with loss of height anteriorly of about 50% seen in T11. Edema is seen in the fat suppressed images. Otherwise Normal height and alignment. No compression fracture . Normal marrow signal. DISK SPACES: Narrowing of T11-T12 disc space. PARASPINOUS SOFT TISSUES: Normal. IMPRESSION: acute Compression fracture of T11. Degenerative disc disease at the level of T11-T12. Procedure: MR thoracic spine wo con, MR lumbar spine wo/w con Ordering provider: Allison Tripp APRN History: 78 years Female with . Compression fracture . Comparison: None. Technique: MRI lumbar spine without contrast. FINDINGS: CONUS MEDULLARIS: Normal in position and appearance. The conus ends at the level of L1. LUMBAR VERTEBRAL BODIES: Acute compression fracture is seen in L1 with loss of volume of about 50%. M inimal retropulsion is seen superiorly. Edema is seen in fat suppressed images suggestive of acute fr acture. Otherwise, No compression fracture or subluxation. Normal marrow signal. DISK SPACES: Narrowing of the disc L3-L4, and L4-L5. T12-L1: No stenosis. L1-L2: No stenosis. L2-L3: No stenosis. L3-L4: Mild spinal canal stenosis secondary to broad based disc bulge, facet arthropathy, and ligamen holly flavum hypertrophy. L4-L5: No stenosis. Diffuse disc bulge. Thickening of the ligamenta flava with bilateral facet joint disease. L5-S1: No stenosis. Diffuse disc bulge with bilateral facet joint disease. PARASPINOUS SOFT TISSUES: Normal. IMPRESSION: 1. acute Compression fracture with retropulsed fragment at the level of L1. Reviewed, dictated and finalized at location A. IMPRESSION: acute Compression fracture of T11. Degenerative disc disease at the level of T11-T12. Procedure: MR thoracic spine wo con, MR lumbar spine wo/w con Ordering provider: Allison Tripp APRN History: 78 years Female with . Compression fracture . Comparison: None. Technique: MRI lumbar spine without contrast. FINDINGS: CONUS MEDULLARIS: Normal in position and appearance. The conus ends at the leve l of L1. LUMBAR VERTEBRAL BODIES: Acute compression fracture is seen in L1 with loss of volume of about 50%. Minimal retropulsion is seen superiorly. Edema is seen in fat suppressed images suggestive of acute fracture. Otherwise, No compression f racture or subluxation. Normal marrow signal. DISK SPACES: Narrowing of the disc L3-L4, and L4-L5. T12-L1: No stenosis. L1-L2: No stenosis. L2-L3: No stenosis. L3-L4: Mild spinal canal stenosis secondary to broad based disc bulge, facet ar thropathy, and ligamentum flavum hypertrophy. L4-L5: No stenosis. Diffuse disc bulge. Thickening of the ligamenta flava with bilateral facet joint disease. L5-S1: No stenosis. Diffuse disc bulge with bilateral facet joint disease. PARASPINOUS SOFT TISSUES: Normal. IMPRESSION: 1. acute Compression fracture with retropulsed fragment at the level of L1. IMPRESSION: acute Compression fracture of T11. Degenerative disc disease at the level of T11-T12. Procedure: MR thoracic spine wo con, MR lumbar spine wo/w con Ordering provider: Allison Zhang
[2024-02-23 16:34] VITALS: BP 167/61; PULSE 94; RESP 18; TEMP 36.2; O2SAT 100
[2024-02-23 17:02] VITALS: PULSE 88; RESP 14; O2SAT 100
[2024-02-23 17:19] VITALS: PULSE 91; RESP 16; O2SAT 100
[2024-02-23 17:27] VITALS: BP 137/50; PULSE 90; RESP 17; TEMP 36.5; O2SAT 100
[2024-02-23] MEDS: SODIUM CHLORIDE 0.9% IV 1,000 ML 999 ML IV CONT (18:06)
--- NOTE | 2024-02-23 18:13 | ED.FALL ---
HPI - Fall General Chief Complaint: Fall Stated Complaint: fell at 0300, c/o lower back pain Time Seen by Provider: 02/23/24 17:00 History of Present Illness HPI Narrative: This 78-year-old female with history of hypertension, chronic back pain presenting after a fall. Patient lives alone and says that she suffers from chronic balance problems. She got up in the middle of the night to get a glass of water and she accidentally got up too quickly causing her to fall. States that she fell back and landed on her bottom. Had immediate worsening of her chronic back pain. States that she also has bad knees. She was unable to get up so she remained on the floor until her brother came over and called EMS. On arrival, patient was noted to be covered in urine with very poor hygiene. Currently, she only complains of severe mid back pain. Related Data Allergies Allergy/AdvReac Type Severity Reaction Status Date / Time codeine Allergy Severe Muscle Pain Verified 12/01/22 09:25 Review of Systems Review of Systems: All systems reviewed & are unremarkable except as noted in HPI and below PMFSH Past Medical History Medical History Diabetes Morbid obesity Surgical History Surgical History Status post total hysterectomy and bilateral salpingo-oophorectomy Social History Social History Smoking status: Never smoker Second hand tobacco smoke exposure: No Alcohol intake: never Substance use: never Substance use type: does not use Lack of Transportation: No Lack of Food: Never True Current Housing: I Have Housing Concerned About Future Housing: No Difficulty Paying Gas/Electric Bills: No Difficulty Paying for Meds: No Currently Unemployed: YES Education: Decline to Answer Difficulty w/ Childcare or Family Care: No Living arrangements: alone Occupation/Education: retired Gender identity (if verbalized by the patient): Female Sexual Orientation (if Verbalized by the Patient): Straight or Heterosexual Spiritual care concerns: No Exam Narrative: GENERAL: Chronically ill-appearing, no acute distress, pleasant and cooperative HEAD: Normocephalic, atraumatic. EYES: PERRLA and EOMI. ENT: Mucous membranes dry NECK: Supple. CHEST: Clear to auscultation. No respiratory distress. HEART: Regular rate and rhythm ABDOMEN: Soft, nontender, nondistended EXTREMITIES: Normal range of motion BACK: midline tenderness of lower thoracic and upper lumbar spine SKIN: Warm, dry NEURO: No focal deficits. Alert and oriented x3. PSYCH: Normal mood and affect. Course Vital Signs Vital signs: Vital Signs Temperature 97.1 F L 02/23/24 16:34 Pulse Rate 94 02/23/24 16:34 Respiratory Rate 18 02/23/24 16:34 Blood Pressure 167/61 H 02/23/24 16:34 Pulse Oximetry 100 02/23/24 16:34 Oxygen Delivery Room Air 02/23/24 16:34 Temperature 97.7 F 02/23/24 17:27 Pulse Rate 78 02/23/24 19:08 Respiratory Rate 16 02/23/24 19:08 Blood Pressure 126/48 L 02/23/24 19:08 Pulse Oximetry 100 02/23/24 19:08 Oxygen Delivery Room Air 02/23/24 17:27 MDM - Fall MDM Narrative Medical decision making narrative: 78 year old female presenting with back pain after a fall. Patient is hypertensive, Otherwise vitals are within normal limits. Exam is remarkable for the above. CT of the patient's back shows compression fractures of T12 and L1. UA is concerning for UTI. blood work with pancytopenia. Appears she has leukopenia and thrombocytopenia in the past. IV Rocephin has been ordered and fluids are ongoing. Patient requires admission for IV antibiotics, pain control, PT OT. She is agreeable this plan. I spoke with the hospitalist who has accepted her for admission. Differential Diagnosis Differential diagnos
[2024-02-23 18:17] LABS: Hematocrit 27.7 % (37.0-47.0); Hemoglobin 8.3 g/dL (12.0-15.0); Mean Corpuscular Hemoglobin 23.9 pg (26-34); Mean Corpuscular Volume 79.8 fl (80-100); Mean Platelet Volume 10.7 fl (7.4-10.4); Platelet Count Result 103 k/mm3 (150-375); Red Blood Count 3.47 M/mm3 (4.2-5.4); Red Cell Distribution Width 22.1 % (11.5-14.5); White Blood Count 2.5 K/mm3 (4.5-10.0)
[2024-02-23 18:23] LABS: Add Urine Microscopic? YES; Appearance Urine Clear (Clear); Bacteria Urine 4+ /hpf; Bilirubin Urine Negative (Negative); Blood Urine 1+ (Negative); Color Urine Yellow (Yellow); Glucose Urine UA Negative (Negative); Ketones Urine Negative (Negative); Leukocyte Esterase Ur 1+ LEU/UL (Negative); Nitrate Urine Positive (Negative); Non Pathogenic Casts 0-2; Protein Urine Trace mg/dL (Negative); RBC Urine 0-2 /hpf (0-2); Specific Grav Ur 1.028 (1.001-1.035); Squamous Epithelial Cell Urine None Seen /hpf (Few); pH Urine 5.5 (5.0-9.0)
[2024-02-23 18:25] LABS: Lactic Acid Reflex 1.8 mmol/L (0.7-2.0)
[2024-02-23 18:26] LABS: Alanine Aminotransferase 28 U/L (6-35); Albumin Level 3.4 g/dL (3.5-5.1); Alkaline Phosphatase 97 U/L (38-126); Anion Gap 5 mmol/L (4-12); Aspartate Amino Transferase 42 U/L (14-36); Bilirubin,Total 1.4 mg/dL (0.2-1.3); Blood Urea Nitrogen 18 mg/dL (7-17); Calcium 8.7 mg/dL (8.4-10.2); Carbon Dioxide 26 mmol/L (22-30); Chloride 108 mmol/L (98-107); Creatine Kinase 323 U/L (30-135); Estimated CRCL calculation 112 ml/min; Estimated Glomerular Filt Rate > 60; Glucose 106 mg/dL (65-110); Potassium 3.9 mmol/L (3.4-5.0); Sodium 139 mmol/L (137-145)
[2024-02-23 18:39] LABS: Eosinophils Absolute Manual 0.02 K/mm3 (0.02-0.50); Eosinophils Percent Manual 1 % (0-4); Lymphocytes Absolute Manual 0.37 K/mm3 (1.1-4.5); Lymphocytes Percent Manual 15 % (18-44); Monocytes Absolute Manual 0.82 K/mm3 (0.1-0.90); Monocytes Percent Manual 33 % (3-9); Neutrophils Percent Manual 51 % (46-73); Total Cells Counted 100
[2024-02-23 18:40] LABS: Platelet Estimate Decreased (Adequate)
[2024-02-23 18:41] LABS: Hypochromasia 1+; Target Cells 1+
[2024-02-23 18:42] LABS: Ovalocytes 1+; Schistocytes None Seen
[2024-02-23 19:08] VITALS: BP 126/48; PULSE 78; RESP 16; O2SAT 100
--- NOTE | 2024-02-23 19:44 | PM.IMHP ---
H&P: HPI History of Present Illness Date/Time: 02/23/24 19:44 Chief Complaint: fall Narrative: This is a 78-year-old female with past medical history significant for obesity, major depression. patient presents to the emergency room after having a fall according to patient late on the floor for close to 12 hours, patient was soiled with her stool and urine. Patient states that she does not remember much about the event. Has been in her usual state of health up until this point. Patient with tenderness and unable to ambulate due to pain. Preliminary workup was significant for compression fracture found of T11 and L1. A urinalysis was significant for WBCs present. CT thoracic lumbar wo con Ordering provider: Leslie Donovan MD History: . mid back pain, fall . Comparison: None. Technique: CT thoracic and lumbar spine without contrast. Automated exposure control and iterative reconstruction technique were employed. The dose-length product was 1938.64 mGy-cm. FINDINGS: VERTEBRAE: Compression fracture of T11 with loss of volume of 50% and L1 with loss of volume of 50% which is most likely acute. MRI evaluation advised. Otherwise, Normal height and alignment. No subluxation is noted. Degenerative changes of the spine. DISC SPACES: Narrowing of the disc spaces in the mid and thoracic area.Narrowing of the disc L3-L4, L4-L5 and L5-S1. No significant stenosis as visualized. Bilateral facet joint disease at the level of L3-L4. Left L5-S1 facet joint disease. Diffuse disc bulge at the level of L3-L4 and L4-L5 with narrowing of the right foramen. Diffuse disc bulge with bilateral narrowing of the foramina at the level of L5-S1. PARASPINOUS SOFT TISSUES: Normal. IMPRESSION: Compression fracture of T11 and L1 most likely acute. MRI evaluation advised. Multilevel degenerative disease involving the mid and lower thoracic area and in the lower lumbar area. Review of Systems Review of Systems: Fall, acute back pain. [facility] Past Medical History Medical History Diabetes Morbid obesity Surgical History Surgical History Status post total hysterectomy and bilateral salpingo-oophorectomy Social History Social History Smoking status: Never smoker Second hand tobacco smoke exposure: No Alcohol intake: never Substance use: never Substance use type: does not use Do You Feel Safe in your Home?: Yes Lack of Transportation: No Lack of Food: Never True Current Housing: I Have Housing Concerned About Future Housing: No Difficulty Paying Gas/Electric Bills: No Difficulty Paying for Meds: No Currently Unemployed: No Education: Bachelor's Degree Difficulty w/ Childcare or Family Care: No Living arrangements: alone Occupation/Education: retired Gender identity (if verbalized by the patient): Female Sexual Orientation (if Verbalized by the Patient): Straight or Heterosexual Spiritual care concerns: No Meds Home Medications and Allergies Home Medications Medication Instructions Recorded Confirmed Type Vitamin D3 125 mcg PO DAILY 02/23/24 02/23/24 History acetaminophen 1,000 mg PO Q6-12H PRN Pain 02/23/24 02/23/24 History ibuprofen 600 mg PO BID-TID pain 02/23/24 02/23/24 History Allergies Allergy/AdvReac Type Severity Reaction Status Date / Time codeine Allergy Severe Muscle Pain Verified 12/01/22 09:25 Vital Signs Vital Signs - 24 hr 02/23/24 16:34 02/23/24 17:27 02/23/24 17:02 Temperature 97.1 F L 97.7 F Pulse Rate 94 90 88 Respiratory Rate 18 17 14 Blood Pressure 167/61 H 137/50 L Pulse Oximetry 100 100 100 Oxygen Delivery Room Air Room Air 02/23/24 17:19 02/23/24 19:08 Temperature Pulse Rate 91 78 Respiratory Rate 16 16 Blood Pressure 126/48 L Pulse Oximetry 1
[2024-02-23] MEDS: cefTRIAXone 2 GM/NS 100 ML 2 GM/100 ML BAG IVPB (19:56)
[2024-02-23 21:02] VITALS: BMI 42.5
[2024-02-23 21:03] VITALS: BP 132/61; PULSE 102; RESP 20; TEMP 36.8; O2SAT 100
--- NOTE | 2024-02-23 21:59 | ADMGEN ---
This patient, Nely Fitch, was admitted to [facility] Surg Room 311-01. Patient/family oriented to hospital policies and general routines including ID bracelet, bed and alarms, visiting hours, pain management, procedures, bathroom and other care routines, personal items, smoking policy, room service/diet, and visiting hours. Information on how to activate the Rapid Response Team has been discussed. Patient/Family are encouraged to report perceived risks to care and to ask questions if they do not understand what they are told or what they should do.
[2024-02-23] MEDS: ACETAMINOPHEN 500 MG TABLET 1000 MG PO (22:22)
[2024-02-24] MEDS: ACETAMINOPHEN 500 MG TABLET 1000 MG PO (05:06)
[2024-02-24 05:14] VITALS: BP 142/68; PULSE 83; RESP 20; TEMP 36.4; O2SAT 99
--- NOTE | 2024-02-24 08:07 | PM.IMPN ---
Progress Note: A&P Assessment and Plan (1) Compression fracture: Status: Acute Assessment and Plan: T11 and L1 MRI pending Bedrest Pain management, muscle relaxers and bowel protocol Will discuss case with the neurosurgeon relocation services specialist (2) UTI (urinary tract infection): Qualifiers: Urinary tract infection type: acute cystitis Hematuria presence: without hematuria Qualified Code(s): N30.00 - Acute cystitis without hematuria Code(s): N39.0 - Urinary tract infection, site not specified Status: Acute Assessment and Plan: started on Rocephin Sensitivity pending (3) Fall: Code(s): W19.XXXA - Unspecified fall, initial encounter Status: Acute Assessment and Plan: CK 323 on admission fall precautions PT/OT Currently on bedrest Repeat CK IVF until CK trending down Time Spent With Patient Time with patient: Greater than 35 minutes Subjective Date/time seen: 02/24/24 08:07 Interval history: 78-year-old female with past medical history significant for obesity, major depression. patient presents to the emergency room after having a fall according to patient late on the floor for close to 12 hours, presents with compression fracture T11- L1 and UTI. MRI recommended, patient states due to acute back pain she can not lay flat, muscle relaxers ordered. Review of Systems Review of Systems: Fall, acute back pain. Constitutional: Constitutional: Reports lethargy and Reports weakness Eyes: Eyes: Reports no additional eye complaints ENT: Reports as per HPI Cardiovascular: Cardiovascular: Reports no additional cardiovascular complaints Respiratory: Respiratory: Reports no additional respiratory complaints Gastrointestinal: Gastrointestinal: Reports no additional gastrointestinal complaints Genitourinary: Genitourinary: Reports dysuria and Reports urinary urgency Musculoskeletal: Musculoskeletal: Reports no additional musculoskeletal complaints Integumentary/Breasts: Skin/Breast: Reports as per HPI Neurologic: Reports as per HPI Psychiatric: Psychiatric: Reports no additional psychiatric complaints Exam Const: General: comfortable, no acute distress, well developed, alert, awake and obese Nutritional Appearance: average body habitus and obese Orientation/consciousness: patient oriented x3 HENMT: Head: normal to inspection, normocephalic and atraumatic Ears: hearing grossly normal bilaterally Face/Nose/Sinus: normal facial exam Face and sinus: normal facial exam Eyes: General: appearance normal, both eyes and all related structures Pupils: Equal, round and reactive pupils present EOM: EOMs intact bilaterally Neck: Neck: full ROM, no lymphadenopathy and no JVD Thyroid: thyroid normal Lymphatic: no lymphadenopathy noted Resp: Effort & Inspection: normal respiratory effort and able to speak in complete sentences Auscultation: clear to auscultation bilaterally Cardio: Jugular venous distension: no JVD Rate: regular rate Rhythm: regular rhythm Heart sounds: S1 normal heart sound present and S2 normal heart sound present : General: Yes deferred Skin: Rashes: no rashes Wounds: no wounds Neuro: General: patient oriented x3, CN's II-XI intact bilaterally and Unable to assess gait Cranial nerves: Yes CN's II-XII intact bilaterally and Yes Equal, round and reactive pupils present Cognition (Neuro): normal cognition Speech: normal speech Gait exam (Neuro): Normal gait present and Unable to assess gait Motor exam (neuro): 5/5 motor strength present throughout Extrem: General: normal to inspection, full ROM, no joint enlargement and no pedal edema Psych: Mental Status: mental status grossly normal Objective Data Vital Signs Vital Signs: Vital Signs - 24 hr 02/23/24 16:34 02/23/24 17:27 02/23/24 17:02 Temperature 97.1 F L 97.7 F Pulse Rate 94 90 88 Respiratory Rate 18 17 14 Blood Pressure 167/61 H 137/50 L Pulse O
[2024-02-24 08:44] LABS: Hematocrit 26.1 % (37.0-47.0); Hemoglobin 7.6 g/dL (12.0-15.0); Immature Platelet Fraction Pct 4.7 % (0.9-11.2); Mean Corpuscular HGB Conc 29.1 g/dl (32-36); Mean Corpuscular Hemoglobin 23.7 pg (26-34); Mean Corpuscular Volume 81.3 fl (80-100); Mean Platelet Volume 10.7 fl (7.4-10.4); Platelet Count Result 89 k/mm3 (150-375); Red Blood Count 3.21 M/mm3 (4.2-5.4); Red Cell Distribution Width 22.5 % (11.5-14.5); White Blood Count 2.1 K/mm3 (4.5-10.0)
[2024-02-24] MEDS: ACETAMINOPHEN 325 MG TABLET 650 MG PO ×3 (08:50→20:22)
[2024-02-24 08:57] LABS: Alanine Aminotransferase 24 U/L (6-35); Alkaline Phosphatase 78 U/L (38-126); Anion Gap 4 mmol/L (4-12); Aspartate Amino Transferase 35 U/L (14-36); Bilirubin,Total 1.3 mg/dL (0.2-1.3); Blood Urea Nitrogen 18 mg/dL (7-17); Calcium 8.2 mg/dL (8.4-10.2); Carbon Dioxide 24 mmol/L (22-30); Chloride 110 mmol/L (98-107); Estimated CRCL calculation 95 ml/min; Estimated Glomerular Filt Rate > 60; Glucose 116 mg/dL (65-110); Potassium 3.9 mmol/L (3.4-5.0); Sodium 138 mmol/L (137-145)
[2024-02-24 08:58] LABS: Creatine Kinase 220 U/L (30-135)
[2024-02-24] MEDS: SODIUM CHLORIDE 0.9% IV 1,000 ML 125 ML IV CONT (11:58)
[2024-02-24] MEDS: methocarbamoL 750 MG TABLET PO ×4 (11:58→20:22)
--- NOTE | 2024-02-24 13:10 | PCOTNOTE ---
pt. currently on bedrest, awaiting MRI and neurosurgery consult. Pt. to be evaluated when safe to participate
[2024-02-24 14:00] VITALS: BP 130/49; PULSE 79; RESP 16; TEMP 36.6; O2SAT 100
[2024-02-24 22:00] VITALS: BP 138/53; PULSE 80; RESP 14; TEMP 36.8; O2SAT 99
[2024-02-25] MEDS: SODIUM CHLORIDE 0.9% IV 1,000 ML 125 ML IV CONT ×3 (01:41→20:09)
[2024-02-25] MEDS: ACETAMINOPHEN 325 MG TABLET 650 MG PO ×4 (01:42→20:07)
[2024-02-25 06:00] VITALS: BP 137/51; PULSE 75; RESP 12; TEMP 36.2; O2SAT 97
[2024-02-25 06:18] LABS: Basophils Percent Auto 0.5 % (0.2-1.2); Eosinophils Percent Auto 0.5 % (0-4.4); Hematocrit 26.4 % (37.0-47.0); Hemoglobin 7.7 g/dL (12.0-15.0); Immature Granulocyte Absolute 0.06 K/mm3 (0.00-0.031); Immature Platelet Fraction Pct 5.7 % (0.9-11.2); Lymphocytes Absolute Auto 0.44 K/mm3 (0.9-3.2); Lymphocytes Percent Auto 22.1 % (18.3-44.2); Mean Corpuscular HGB Conc 29.2 g/dl (32-36); Mean Corpuscular Hemoglobin 23.8 pg (26-34); Mean Corpuscular Volume 81.7 fl (80-100); Mean Platelet Volume 10.8 fl (7.4-10.4); Monocytes Absolute Auto 0.7 K/mm3 (0.1-0.6); Monocytes Percent Auto 34.2 % (2.6-8.5); Neutrophils Absolute Auto 0.8 K/mm3 (1.3-6.7); Neutrophils Percent Auto 39.7 % (45.5-73.1); Platelet Count Result 83 k/mm3 (150-375); Red Blood Count 3.23 M/mm3 (4.2-5.4); Red Cell Distribution Width 22.9 % (11.5-14.5)
[2024-02-25 06:26] LABS: Anion Gap 4 mmol/L (4-12); Blood Urea Nitrogen 19 mg/dL (7-17); Calcium 8.1 mg/dL (8.4-10.2); Carbon Dioxide 23 mmol/L (22-30); Chloride 109 mmol/L (98-107); Estimated CRCL calculation 95 ml/min; Estimated Glomerular Filt Rate > 60; Glucose 108 mg/dL (65-110); Potassium 4.1 mmol/L (3.4-5.0); Sodium 136 mmol/L (137-145)
[2024-02-25 07:27] LABS: Anisocytosis 2+; Hypochromasia 1+; Platelet Estimate Decreased (Adequate); Schistocytes None Seen; Target Cells 1+
[2024-02-25] MEDS: oxyCODONE HCL (*CRX) 5 MG TAB IR PO (08:13)
--- NOTE | 2024-02-25 08:23 | PM.IMPN ---
Progress Note: A&P Assessment and Plan (1) Compression fracture: Status: Acute Assessment and Plan: T11 and L1 MRI Compression fracture with loss of height anteriorly of about 50% seen in T11. Edema is seen in the fat suppressed images. Otherwise Normal height and alignment. Pain management, muscle relaxers and bowel protocol Recommend for TLSO and upright x-rays Follow-up with Neurosurgery in 2-6 weeks with upright x-rays Osteoporosis workup: phosphorus WDL, vitamin-D pending, calcium low at 8.1, Alk Ph WDL, Folate pending Outpatient DEXI scan, and outpatient endocrine consult (2) UTI (urinary tract infection): Qualifiers: Hematuria presence: without hematuria Urinary tract infection type: acute cystitis Qualified Code(s): N30.00 - Acute cystitis without hematuria Code(s): N39.0 - Urinary tract infection, site not specified Status: Acute Assessment and Plan: Positive for E coli IV meropenem Sensitivities pending (3) Fall: Code(s): W19.XXXA - Unspecified fall, initial encounter Status: Acute Assessment and Plan: CK 323 on admission fall precautions PT/OT Repeat CK improving (4) Pancytopenia: Code(s): D61.818 - Other pancytopenia Status: Acute Assessment and Plan: Patient of Radha Uterin Cancer- stage T2 N0(i+)sn M0, 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 She has now completed adjuvant whole pelvic radiation therapy delivered between 10/30/2022 and 12/07/2022. Will consult oncologist for pancytopenia Time Spent With Patient Time with patient: Greater than 35 minutes Subjective Date/time seen: 02/25/24 08:23 Interval history: 78-year-old female with past medical history significant for obesity, major depression. patient presents to the emergency room after having a fall according to patient late on the floor for close to 12 hours, presents with compression fracture T11- L1 and UTI. Patient's UTI culture shows E coli positive, started on meropenem MRI Compression fracture with loss of height anteriorly of about 50% seen in T11. Edema is seen in the fat suppressed images. Compression fracture with loss of height anteriorly of about 50% seen in T11. Edema is seen in the fat suppressed images. Spoke with Dr. Garcia from Neurosurgery with recommendations for TLSO brace, cooperates and brace, follow-up outpatient in 2-6 weeks repeat x-rays with him, and osteoporosis workup. Review of Systems Review of Systems: Fall, acute back pain. Constitutional: Constitutional: Reports lethargy and Reports weakness Eyes: Eyes: Reports no additional eye complaints ENT: Reports as per HPI Cardiovascular: Cardiovascular: Reports no additional cardiovascular complaints Respiratory: Respiratory: Reports no additional respiratory complaints Gastrointestinal: Gastrointestinal: Reports no additional gastrointestinal complaints Genitourinary: Genitourinary: Reports dysuria and Reports urinary urgency Musculoskeletal: Musculoskeletal: Reports no additional musculoskeletal complaints Integumentary/Breasts: Skin/Breast: Reports as per HPI Neurologic: Reports as per HPI and Reports weakness Psychiatric: Psychiatric: Reports no additional psychiatric complaints Exam Narrative: Sitting in bed with brace Const: General: comfortable, no acute distress, well developed, alert, awake, average body habitus and obese Nutritional Appearance: average body habitus and obese Orientation/consciousness: patient oriented x3 Other: HENMT: Head: normal to inspection, normocephalic and atraumatic Ears: hearing grossly normal bilaterally Face/Nose/Sinus: normal facial exam Face and sinus: normal facial exam Eyes: General: appearance normal, both eyes and all rel
[2024-02-25] MEDS: methocarbamoL 750 MG TABLET PO ×3 (08:31→20:07)
[2024-02-25] MEDS: KETOROLAC 15 MG/ML VIAL (*BKC) IV PUSH ×3 (09:39→20:08)
[2024-02-25 10:05] LABS: Phosphorus 2.8 mg/dL (2.5-4.5)
[2024-02-25] MEDS: MEROPENEM 1 GM/NS 100 ML 1 GM/100 ML BAG IVPB (11:00)
[2024-02-25 13:50] LABS: Vitamin D 25 Hydroxy < 12.8 ng/mL
[2024-02-25 14:00] VITALS: BP 162/95; PULSE 72; RESP 18; TEMP 36.1; O2SAT 100
[2024-02-25 20:03] VITALS: BP 148/59; PULSE 71; RESP 20; TEMP 36.5; O2SAT 100
[2024-02-25] MEDS: cefTRIAXone 2 GM/NS 100 ML 2 GM/100 ML BAG IVPB (20:07)
[2024-02-26] MEDS: KETOROLAC 15 MG/ML VIAL (*BKC) IV PUSH ×2 (02:18→08:05)
[2024-02-26] MEDS: SODIUM CHLORIDE 0.9% IV 1,000 ML 125 ML IV CONT (04:29)
[2024-02-26 05:07] VITALS: BP 161/61; PULSE 70; RESP 20; TEMP 36.9; O2SAT 99
[2024-02-26] MEDS: DOCUSATE SODIUM 100 MG CAPSULE PO ×2 (08:05→17:46)
[2024-02-26] MEDS: ACETAMINOPHEN 325 MG TABLET 650 MG PO ×3 (08:05→23:25)
[2024-02-26] MEDS: methocarbamoL 750 MG TABLET PO ×4 (08:05→20:56)
[2024-02-26 08:13] VITALS: O2SAT 99
--- NOTE | 2024-02-26 08:13 | PM.IMPN ---
Progress Note: A&P Assessment and Plan (1) Compression fracture: Status: Acute Assessment and Plan: T11 and L1 MRI Compression fracture with loss of height anteriorly of about 50% seen in T11. Edema is seen in the fat suppressed images. Otherwise Normal height and alignment. Pain management, muscle relaxers and bowel protocol Recommend for TLSO and upright x-rays Follow-up with Neurosurgery in 2-6 weeks with upright x-rays Osteoporosis workup: phosphorus WDL, vitamin-D pending, calcium low at 8.1, Alk Ph WDL, Folate pending Outpatient DEXI scan, and outpatient endocrine consult (2) UTI (urinary tract infection): Qualifiers: Hematuria presence: without hematuria Urinary tract infection type: acute cystitis Qualified Code(s): N30.00 - Acute cystitis without hematuria Code(s): N39.0 - Urinary tract infection, site not specified Status: Acute Assessment and Plan: Positive for E coli Sensitivities resulted and patient transition to Keflex (3) Fall: Code(s): W19.XXXA - Unspecified fall, initial encounter Status: Acute Assessment and Plan: Fall was likely due to acute UTI CK 323 on admission fall precautions PT/OT recommend Rehab (4) Pancytopenia: Code(s): D61.818 - Other pancytopenia Status: Acute Assessment and Plan: Patient of Radha Uterin Cancer- stage T2 N0(i+)sn M0, 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 She has now completed adjuvant whole pelvic radiation therapy delivered between 10/30/2022 and 12/07/2022. No need for acute intervention at this time, follow-up outpatient with oncology services after rehab is completed will need outpatient PET scan. 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 Patient is medically ready for discharge to rehab. Time Spent With Patient Time with patient: Greater than 35 minutes Subjective Date/time seen: 02/26/24 08:13 Interval history: 78-year-old female with past medical history significant for obesity, major depression. patient presents to the emergency room after having a fall according to patient late on the floor for close to 12 hours, presents with compression fracture T11- L1 and UTI. Added Gabapentin as of this morning patient did great with physical therapy recommending acute rehab. Spoke with Oncology Dr. Barreto about pancytopenia, no acute interventions required at this time, recommend outpatient follow-up in office with PET scan once completed rehab. Patient is medically ready for discharge Review of Systems Review of Systems: Fall, acute back pain. Constitutional: Constitutional: Reports lethargy and Reports weakness Eyes: Eyes: Reports no additional eye complaints ENT: Reports as per HPI Cardiovascular: Cardiovascular: Reports no additional cardiovascular complaints Respiratory: Respiratory: Reports no additional respiratory complaints Gastrointestinal: Gastrointestinal: Reports no additional gastrointestinal complaints Genitourinary: Genitourinary: Reports dysuria and Reports urinary urgency Musculoskeletal: Musculoskeletal: Reports no additional musculoskeletal complaints Integumentary/Breasts: Skin/Breast: Reports as per HPI Neurologic: Reports as per HPI and Reports weakness Psychiatric: Psychiatric: Reports no additional psychiatric complaints Exam Narrative: Sitting in bed with brace Const: General: comfortable, no acute distress, well developed, alert, awake, average body habitus and obese Nutritional Appearance: average body habitus and obese Orientation/consciousness: patient oriented x3 Other: HENMT: Head: normal to inspection, normocephalic and atra
[2024-02-26 09:18] LABS: Hematocrit 27.5 % (37.0-47.0); Immature Platelet Fraction Pct 6.9 % (0.9-11.2); Mean Corpuscular HGB Conc 29.1 g/dl (32-36); Mean Corpuscular Volume 82.6 fl (80-100); Platelet Count Result 77 k/mm3 (150-375); Red Blood Count 3.33 M/mm3 (4.2-5.4); Red Cell Distribution Width 22.9 % (11.5-14.5); White Blood Count 2.6 K/mm3 (4.5-10.0)
[2024-02-26 09:41] LABS: Anion Gap 6 mmol/L (4-12); Blood Urea Nitrogen 23 mg/dL (7-17); Calcium 8.1 mg/dL (8.4-10.2); Carbon Dioxide 23 mmol/L (22-30); Chloride 108 mmol/L (98-107); Estimated CRCL calculation 83 ml/min; Estimated Glomerular Filt Rate > 60; Glucose 162 mg/dL (65-110); Potassium 4.2 mmol/L (3.4-5.0); Sodium 137 mmol/L (137-145)
[2024-02-26] MEDS: GABAPENTIN 300 MG CAPSULE PO ×3 (09:44→17:46)
--- NOTE | 2024-02-26 12:54 | PM.DS ---
DS: Admitting Diagnosis Discharge Date 02/26/2024 Admitting Diagnosis Acute UTI with E coli DS: Summary Hospital Course Reason for hospitalization: Acute UTI Hospital Course: 78-year-old female with past medical history significant for obesity, major depression. patient presents to the emergency room after having a fall according to patient late on the floor for close to 12 hours, patient was soiled with her stool and urine. Patient states that she does not remember much about the event. Has been in her usual state of health up until this point. Patient with tenderness and unable to ambulate due to pain. Preliminary workup was significant for compression fracture found of T11 and L1. A urinalysis was significant for WBCs present. Status at Discharge Functional status at discharge: independent ambulation (TLSO) Time Spent with Patient Time attestation: Total time spent providing and/or coordinating discharge services: Exam Const: General: comfortable and no acute distress HENMT: Face/Nose/Sinus: Normal nares present Mouth: Yes moist mucous membranes Eyes: General: appearance normal, both eyes and all related structures Pupils: Equal, round and reactive pupils present DS: Data Data Completed and Pending Labs on day of discharge: Labs from last 24 hours 02/26/24 02/24/24 09:05 08:34 WBC 2.6 L RBC 3.33 L Hgb 8.0 L Hct 27.5 L MCV 82.6 MCH 24.0 L MCHC 29.1 L RDW 22.9 H Plt Count 77 L MPV TNP % Immature Plt Fraction 6.9 Sodium 137 Potassium 4.2 Chloride 108 H Carbon Dioxide 23 Anion Gap 6 BUN 23 H Creatinine 0.70 Estim Creat Clear Calc 83 Estimated GFR > 60 Glucose 162 H Calcium 8.1 L Vitamin D 25-Hydroxy < 12.8 Discharge Plan Discharge Consulting providers: Yosi Temple Discharge Medications: No Action acetaminophen 500 mg capsule 1,000 mg PO Q6-12H PRN (Reason: Pain) ibuprofen 600 mg tablet 600 mg PO BID-TID MDD 3000 mg Vitamin D3 125 mcg tablet 125 mcg PO DAILY Date of admission: 02/24/24 08:48 Primary Care Provider: PHYSICIAN,SENIOR INSTRUCTIONAL DESIGNER Admitting Provider: Raj Haines V. Attending physician on admission: Raj Haines V. Condition: Stable
[2024-02-26 14:00] VITALS: BP 150/58; PULSE 70; RESP 20; TEMP 37.2; O2SAT 100
[2024-02-26] MEDS: IBUPROFEN 400 MG TABLET PO ×2 (14:38→20:56)
[2024-02-26] MEDS: CEPHALEXIN 500 MG CAPSULE PO (20:56)
[2024-02-26 22:00] VITALS: BP 143/59; PULSE 74; RESP 20; TEMP 36.6; O2SAT 98
[2024-02-27] MEDS: ACETAMINOPHEN 325 MG TABLET 650 MG PO ×2 (05:15→11:06)
[2024-02-27 05:46] VITALS: BP 122/42; PULSE 63; RESP 20; TEMP 36.1; O2SAT 98
[2024-02-27 07:07] LABS: Hematocrit 26.4 % (37.0-47.0); Hemoglobin 7.7 g/dL (12.0-15.0); Mean Corpuscular HGB Conc 29.2 g/dl (32-36); Mean Corpuscular Hemoglobin 23.8 pg (26-34); Mean Corpuscular Volume 81.7 fl (80-100); Mean Platelet Volume 11.2 fl (7.4-10.4); Platelet Count Result 82 k/mm3 (150-375); Red Blood Count 3.23 M/mm3 (4.2-5.4); Red Cell Distribution Width 22.6 % (11.5-14.5)
[2024-02-27 07:18] LABS: Anion Gap 5 mmol/L (4-12); Blood Urea Nitrogen 19 mg/dL (7-17); Calcium 8.1 mg/dL (8.4-10.2); Carbon Dioxide 23 mmol/L (22-30); Chloride 106 mmol/L (98-107); Estimated CRCL calculation 95 ml/min; Estimated Glomerular Filt Rate > 60; Glucose 110 mg/dL (65-110); Potassium 4.2 mmol/L (3.4-5.0); Sodium 134 mmol/L (137-145)
[2024-02-27] MEDS: IBUPROFEN 400 MG TABLET PO ×2 (07:57→13:57)
[2024-02-27] MEDS: methocarbamoL 750 MG TABLET PO ×2 (08:00→12:22)
[2024-02-27] MEDS: CEPHALEXIN 500 MG CAPSULE PO (08:00)
[2024-02-27] MEDS: GABAPENTIN 300 MG CAPSULE PO ×2 (08:00→12:22)
--- NOTE | 2024-02-27 08:28 | PM.DS ---
DS: Admitting Diagnosis Discharge Date 02/27/24 Admitting Diagnosis Compression fracture UTI Fall Obesity DS: Summary Hospital Course Reason for hospitalization: Compression fracture UTI Fall Obesity Hospital Course: this is a 78-year-old female who presented to the hospital on 02/23/2024 with complaints of lower back pain after sustaining a ground level fall. Workup in the hospital included a thoracic/lumbar spine CT which shown a compression fracture of T11 it L1 most likely acute, MRI advised, multilevel degenerative disc involving the mid and lower thoracic area in the lower lumbar area. Lumbar spine MRI showed acute compression fracture with retropulsed fragment at the level of L1, mild spinal canal stenosis at L3-L4 diffuse disc bulge and L4-L5 and L5-S1. Thoracic spine MRI showed acute compression fracture with retropulsed fragment at the level of L1. Lumbar and thoracic spine x-ray showed mild to moderate thoracic and lumbar spondylosis with no significant change in 40% anterior vertebral body height loss at T11 and L1 burst fractures, unchanged chronic mild T6 compression fracture. initial labs showed a white blood cell count of 2.5, RBC 3.47, hemoglobin 8.3, platelet count 103, total bili 1.4, AST 42, total CK 323. A UA was obtained which showed 1+ urine blood, positive nitrate, 1+ leukocyte, 6-10 urine WBC, 4+ urine bacteria. Urine culture was obtained and shown E coli on final read. Patient was initially started on meropenem and then switched to Keflex once final culture read with sensitivities were back. Patient worked with PT and OT who recommended acute rehab. [facility] was [facility] [place]. she will need to follow up with Neurosurgery in 2-6 weeks and get upright x-rays. She also will need to obtain an outpatient DEXA scan at some point. Final diagnosis: Compression fracture, UTI Status at Discharge Cognitive/behavioral status at discharge: Alert oriented x3 Functional status at discharge: uses cane/walker Overall status at discharge: patient is progressing back to baseline Time Spent with Patient Time attestation: Total time spent providing and/or coordinating discharge services: Exam Narrative: General: In no acute distress, well nourished Head: atraumatic, no encephalopathy Eyes: EOMI, PERRLA, sclera clear ENT: moist mucous membranes, nasal passages clear Neck: supple, no JVD, no adenopathy, trachea midline Cardiac: Normal S1 and S2. No murmur, gallops or friction rubs, peripheral pulses intact. Respiratory: Lungs clear to auscultation, no adventitious lung sounds, currently on room air Gastrointestinal: soft, non-distended, non-tender, normoactive bowel sounds. : voiding without difficulty. Extremities: moves all extremities well, no edema, spine: TLSO brace in place Skin: clean, dry, intact. No wounds or lesions. Neuro: Alert and oriented x4, cranial nerves intact, no neuro deficits. Psych: normal mood, normal affect, interactive DS: Data Data Completed and Pending Completed studies during hospitalization: Thoracic/lumbar spine CT Lumbar spine MRI Thoracic spine MRI Lumbar spine x-ray Thoracic spine x-ray Pending studies at discharge: None Labs on day of discharge: Labs from last 24 hours 02/27/24 02/26/24 06:53 09:05 WBC 3.0 L 2.6 L RBC 3.23 L 3.33 L Hgb 7.7 L 8.0 L Hct 26.4 L 27.5 L MCV 81.7 82.6 MCH 23.8 L 24.0 L MCHC 29.2 L 29.1 L RDW 22.6 H 22.9 H Plt Count 82 L 77 L MPV 11.2 H TNP % Immature Plt Fraction 6.9 Sodium 134 L 137 Potassium 4.2 4.2 Chloride 106 108 H Carbon Dioxide 23 23 Anion Gap 5 6 BUN 19 H 23 H Creatinine 0.60 L 0.70 Estim Creat Clear Calc 95 83 Estimated GFR > 60 > 60 Glucose 110 162 H Calcium 8.1 L 8.1 L Procedures/Treatments: None Discharge Plan Discharge Attending physician on discharge: Yon Gonzales Consulting providers: Yosi Temple; Joshua Larson;
[2024-02-27 14:00] VITALS: BP 140/53; PULSE 71; RESP 20; TEMP 36.6; O2SAT 100
[2024-02-28 08:54] LABS: Red Blood Cell Folate 831 ng/mL RBC (>280)
== END 2024-02-27 15:50 | DRG 552 ==
LOC: ANHED 17:24 → ANH3MEDSUR 20:20
PROVIDERS: Nurse Practitioner Gerontology; Admitting Provider Internal Medicine; Emergency Provider Emergency Medicine; Visit Provider Nurse Practitioner Acute Care
DX: S32.010A Wedge compression fracture of first lumbar vertebra, initial encounter for closed fracture (principal); N39.0 Urinary tract infection, site not specified; D61.818 Other pancytopenia; Z68.42 Body mass index [BMI] 45.0-49.9, adult; B96.20 Unspecified Escherichia coli [E. coli] as the cause of diseases classified elsewhere; M51.379 Other intervertebral disc degeneration, lumbosacral region without mention of lumbar back pain or lower extremity pain; C55 Malignant neoplasm of uterus, part unspecified; W19.XXXA Unspecified fall, initial encounter; E66.9 Obesity, unspecified; F32.A Depression, unspecified; M48.061 Spinal stenosis, lumbar region without neurogenic claudication; M47.816 Spondylosis without myelopathy or radiculopathy, lumbar region; M47.894 Other spondylosis, thoracic region
CPT/HCPCS: 36415; 72070; 72100; 72128; 72131; 72146; 72158; 80048; 80053; 81001; 82306; 82550; 82747; 83605; 84100; 85025; 85027; 85055; 87086; 87186; 96361; 96365; 97110; 97116; 97161; 97166; 97530; 97535; 99285; A9270; A9577; G0378; J0696; J1885; J2185; J7030

== ENCOUNTER 2024-12-25 23:23 | Inpatient (IN) | payer MEDICARE, BC, SELFPAY ==
--- OUTSIDE RECORDS SUMMARY | 2009-12-22 19:00 | XMS_ITS | Continuity of Care Document ---
Author Organization [facility] Address [address] [place] [address] [address] [place] [address] Phone Care Team Providers Care Process Steward Name Role Phone Cope OD, Giacomo Unavailable Unavailable Procedures Procedure Date Cntct Lens Hydrophil Bifocal Medical Tax Refraction Eye Exam & Treatment Cntct Lens Hydrophil Bifocal Hipster Contact Lens/es Other Type Hipster CL Replacement - Vistakon Disp W/BW Soft Hipster Eye Exam & Treatment Refraction CL Replacement - [employer]ist[employer] Disp W/BW Soft Hipster CL Replacement - [employer] Disp W/BW Soft Hipster Eye Exam & Treatment Refraction CL Replacement - [employer]istak[employer] Disp W/BW Soft Hipster CL Replacement - [employer]ist[employer] Disp W/BW Soft Hipster CL Replacement - [employer] Disp W/BW Soft Hipster CL Replacement - [employer]istak[employer] Disp W/BW Soft Sales Tax Eye Exam & Treatment Advance Directives Directive Yes / No Effective Date File Name No Information Encounters Encounter Description Practice Location Reason(s) For Visit Diagnoses Date Provider Providers [facility], [address] [place] [address] [address], [place], [place], [id number], [place] tel:[phone] [facility] No Information Aug-1 9-201 0 Cope OD Giacomo. Count includes the [facility] Corporate Center , [address], [place], [place], [facility], [place]. tel:[phone] [facility], [address] [place] [address] [address], [place], [place], [address], [place] tel:[phone] SEC [facility] No Information Aug-0 4-201 0 Cope OD Giacomo. Count includes the [facility] Corporate [facility] , [address], [place], [place], [facility], [place]. tel:[phone] [facility], [address] [place] [address] [address], [place], [place], [address], [place] tel:[phone] [facility] No Information Jul-1 8-201 0 Cope OD Giacomo. Count includes the [facility] , [address], [place], [facility], [place]. tel:[phone] [facility], [address] [place] [address] [address], [place], [place], [address], [place] tel:[phone] [facility] No Information Mar-2 4-200 9 Cope OD Giacomo. [address] [place], [place] [address]ate Center , [address], [place], [facility], [place]. tel:[phone] [facility], [address] [place] [address] [address], [place], [place], [address], [place] tel:[phone] [facility] No Information Nov-3 0-200 9 Cope OD Giacomo. [address] [place], [place] [address]ate Center , [address], [place], [place], [facility], [place]. tel:[phone] [facility], [address] [place] [address] [address], [place], [place], [address], [place] tel:[phone] SEC [place] [facility] No Information 5-200 9 Cope OD Giacomo. [address] , [address], [place], [address], [place]. tel:[phone] [facility], [address] [place] [address] [address], [place], [place], [address], [place] tel:[phone] [facility] No Information 1-200 8 Cope OD Giacomo. [address] , [address], [place], [facility], [place]. tel:[phone] [facility], [address] [place] [address] [address], [place], [place], [address], [place] tel:[phone] [facility] [place] No Information 4-200 8 Cope OD Giacomo. [address] , [address], [place], [facility], [place]. tel:[phone] [facility], [address] [place] [address] [address], [place], [place], [address], [place] tel:[phone] [facility] [place] No Information 9-200 8 Cope OD Giacomo. [address] , [address], [place], [address], [place]. tel:[phone] [facility], [address] [place] [address] [address], [place], [place], [address], [place] tel:[phone] [facility] No Information 4-200 8 Cope OD Giacomo. [address] , [address], [place], [address], [place]. tel:[phone] [facility], [address] [place] [address] [address], [place], [place], [address], [place] tel:[phone] [facility] No Information 1-200 7 Cope OD Giacomo. [address] , [address], [place], [facility], . tel:[phone] [facility], [address] [place] [address] [address], [place], [place], [address], tel:[phone] [facility] No Information Luis Enrique-0 3-200 7 Cope OD Giacomo. [address] [facility] [place] , [address], [place], [place], [facility], . tel:[phone] [facility], [address] [place] [address] [address], [place], [place], [address], tel:[phone] [facility] [place] No Information Apr-0 3-200 7 Cope OD Giacomo. Count includes the [facility] [place] , [address], [place], [facility], . tel:[phone] [facility], [address] [place] [address] [address], [place], [place], [address], tel:[phone] [facility] No Information Mar-2 1-200 7 Cope OD Giacomo. [address] [place] [address]ate [place] , [address], [place], [place], [facility], . tel:[phone] Family History Family Member Type Diagnosis Age At Onset No Information Payers Payer name Insurance type Covered libertarian ID Authoriza tion(s) No Information Social History Type Description Quantity Date Captured Comments Sex Female Smoking Status No Information Chief Complaint And Reason For Visit No Information Reason For Referral Reason For Referral No Information History Of Present Illness Encounter Date Complaint History Of Prese nt Illness No Information Functional Status Date Functional Assessmen t No Information Instructions Date Instruction Additional Infor mation No Information Assessments Type Assessment Date No Information Patient Care Teams Name Effective Dates (start - stop) Status Members No Information
--- NOTE | ~2024-12-25 | XR_ITS ---
Left Knee Technique: AP, lateral, and sunrise views were obtained. Clinical History: Pain Findings: No fracture or dislocation is seen. Osseous alignment is anatomic. Joint spaces are preserved with minimal degenerative spurring. Soft tissues are unremarkable. No joint effusion is seen. Impression: Minimal degenerative change of the knee. Reviewed, dictated and finalized at location . Impression: Minimal degenerative change of the knee.
--- NOTE | ~2024-12-25 | XR_ITS ---
Portable chest x-ray Comparison: None Clinical History: Weakness Findings: Lungs are clear, without focal consolidation or pleural effusion. Cardiomediastinal silhouette is unremarkable. Bones and soft tissues are unremarkable. Impression: Clear lungs. Reviewed, dictated and finalized at location M. Impression: Clear lungs.
--- NOTE | ~2024-12-25 | US_ITS ---
US abdomen limited INDICATION: Elevated liver enzymes PROCEDURE: Realtime right upper abdominal ultrasound. COMPARISON: No prior studies for comparison. FINDINGS: The pancreas is normal without focal mass or pancreatic ductal dilation. Liver echotexture is increased, consistent with fatty infiltration. There is normal directional flow in the portal vein. There are gallstones. Gallbladder wall is not well delineated. Common bile duct measures 8.6 mm. No sonographic Tyler's sign. IMPRESSION: 1: Cholelithiasis with dilated common bile duct. Consider cholecystitis in the appropriate clinical setting. Reviewed, dictated and finalized at location O.
--- NOTE | ~2024-12-25 | XR_ITS ---
Left ankle Technique: AP, oblique, and lateral views were obtained. Clinical History: Status post fall Findings: No acute fracture or dislocation is seen. Osseous alignment is anatomic. Ankle mortise and other visualized joint spaces are preserved. Soft tissues are otherwise unremarkable. Impression: Unremarkable left ankle. Reviewed, dictated and finalized at location . Impression: Unremarkable left ankle.
--- NOTE | ~2024-12-25 | XR_ITS ---
AP and lateral views of the left tibia/fibula Clinical History: Status post fall Findings: No acute fracture or dislocation is seen. Osseous alignment is anatomic. Joint spaces are preserved without significant erosive or degenerative change. Soft tissues are unremarkable. Impression: Unremarkable left tib-fib radiographs. Reviewed, dictated and finalized at [facility]. Impression: Unremarkable left tib-fib radiographs.
--- NOTE | ~2024-12-25 | CT_ITS ---
Noncontrast CT scan of the lumbar spine CLINICAL HISTORY: Status post fall TECHNIQUE: Axial noncontrast imaging of the lumbar spine was performed. Sagittal and coronal reformatted images were constructed. Dose reduction technique was used on this scan by utilizing automated exposure control and iterative reconstruction technique. The dose-length product (DLP) was 1458.82 mGy-cm. COMPARISON: 02/23/2024 FINDINGS: Stable moderate to severe compression fractures of T11 and L1. Stable probable minimal loss of height of the superior endplate region of T12. No new fracture or subluxation seen. Osseous alignment is unchanged. At L1-L2, there is no significant disc bulge or herniation. Minimal facet arthropathy present. No spinal canal stenosis. There is probable moderate left neural foraminal narrowing and mild right neural foraminal narrowing. At L2-L3, there is no disc bulge or herniation. No spinal canal stenosis or definite neural foraminal narrowing. At L3-L4, there is degenerative disc narrowing with mild disc bulge and moderate facet arthropathy. There is mild central canal stenosis. There is mild bilateral neural foraminal narrowing. At L4-L5, there is degenerative disc narrowing with disc bulge and moderate to advanced facet arthropathy. There is mild central canal stenosis. There is moderate to advanced right neural foraminal narrowing. Left neural foramen preserved. At L5-S1, there is degenerative disc narrowing. There is mild disc bulge and mild facet arthropathy. No definite central canal stenosis. There is severe left neural foraminal narrowing. There is minimal right neural foraminal narrowing. Paravertebral soft tissues are unremarkable. Impression: Chronic compression fractures of T11 and L1. Stable possible minimal loss of height of the superior endplate region of T12. Degenerative spondylitic changes, as above. Reviewed, dictated and finalized at [facility]. Impression: Chronic compression fractures of T11 and L1. Stable possible minimal loss of he ight of the superior endplate region of T12. Degenerative spondylitic changes, as above.
--- NOTE | ~2024-12-25 | MR_ITS ---
EXAMINATION: MR MRCP wo/w con/w 3D wo ind, 12/30/2024 9:27 CDT HISTORY: Dilated with dilated bile duct COMPARISON: Comparison ultrasound the previously obtained. Technique: Multiplanar multisequence images obtained of the abdomen without and with intravenous intravenous contrast. FINDINGS: LUNG BASES: The lung bases are clear. The visualized portions of the heart and pericardium are unremarkable. LIVER: Motion artifact limits evaluation but there is subtle nodularity of the liver contours fissures for early cirrhotic disease. There is no intrahepatic biliary duct dilatation. The main portal vein is patent. Mild hepatic steatosis. SPLEEN: Unremarkable, no splenomegaly. KIDNEYS: Right Kidney: Unremarkable. No calculi. No hydronephrosis. Left Kidney: Unremarkable. No calculi. No hydronephrosis ADRENAL GLANDS: Unremarkable. PANCREAS: Moderate atrophy noted of the pancreas. Within the pancreatic body there is a cystic focus measuring 5 x 4 mm which communicates with the pancreatic duct. GALLBLADDER/BILIARY: Mild distention of the gallbladder with cholelithiasis with a large gallstone measuring 2.2 x 1.2 cm, there is no wall thickening or pericholecystic fluid. The CBD is within normal limits. STOMACH AND ESOPHAGUS: Visualized stomach and esophagus within normal limits. BOWEL/MESENTERY: Bowel is within normal limits, no colitis or diverticulitis. ADENOPATHY/RETROPERITONEUM: No lymphadenopathy. AORTA/VASCULATURE: Normal caliber aorta. FREE FLUID OR FREE AIR: None. VISUALIZED PELVIS: Unremarkable. OSSEOUS STRUCTURES: Moderate degenerative changes of the visualized spine with remote compression deformities noted. OVERLYING SOFT TISSUES: Unremarkable. IMPRESSION: 1. Cholelithiasis. No evidence of acute cholecystitis or choledocholithiasis. 2. Cystic pancreatic lesion concerning for IPMN cystic pancreatic neoplasm 3. Mild hepatic steatosis Reviewed, dictated and finalized at location A.
[2024-12-25 23:24] VITALS: BP 145/73; PULSE 92; RESP 12; TEMP 36.8; O2SAT 100
[2024-12-25 23:33] VITALS: BP 145/73; PULSE 92; RESP 18; TEMP 36.8; O2SAT 100
--- NOTE | 2024-12-25 23:33 | ECG_ITS ---
Test Date: 2024-12-25 23:28:11 Measurements Intervals [place] Rate: 93 P: -4 MO: 225 QRS: -41 QRSD: 86 T: 65 QT: 360 QTc: 450 Interpretive Statements SINUS RHYTHM WITH FIRST DEGREE AV BLOCK LEFT AXIS DEVIATION PATTERN CONSISTENT WITH PULMONARY DISEASE BORDERLINE ST-T WAVE ABNORMALITY- HIGH LATERAL LEADS BORDERLINE ECG No previous ECG available for comparison Electronically Signed On 12-26-2024 06:32:36 CDT by Jhonathan Chavez D.O.
--- OUTSIDE RECORDS SUMMARY | 2024-12-25 23:42 | XMS_ITS | Clinical Summary ---
Author Organization [facility] [address] Address [facility] [place] [address] Care Team Providers Care Program Coordinator For Residence Life Name Role Phone Lima Wang Primary Care Provider [phone] Allergies Active Allergy Reactions Criticality Noted Date Comments Codeine Other (See comments) Low 09/06/2020 Patient states they get pain Medications atorvastatin (LIPITOR) 10 mg tablet daily 07/12/2020 Active ergocalciferol (VITAMIN D) 50,000 unit capsule 1 capsule 07/13/2020 Active metFORMIN XR (GLUCOPHAGE XR) 500 mg 24 hr tablet daily 07/12/2020 Active Active Problems Problem Noted Date Diagnosed Date Endometrial cancer 07/19/2022 Overview (07/19/2022): Added automatically from request for surgery [id number] BMI 40.0-44.9, adult 05/23/2021 Assessment & Plan (05/23/2021 1:48 PM DAY HABILITATION SPECIALIST): Obesity is unchanged. Discussed the patient's BMI. The BMI is above average. BMI management plan is completed. BMI Follow-up includes: nutrition counseling, exercise counseling and education provided. History of vasculitis 05/23/2021 Assessment & Plan (05/23/2021 1:47 PM DAY HABILITATION SPECIALIST): Continue care same at this time Menopause 01/04/2021 Assessment & Plan (01/04/2021 11:47 AM CDT): bmd for osteoporosis screening Thrombocytopenia 01/04/2021 Assessment & Plan (05/23/2021 1:46 PM DAY HABILITATION SPECIALIST): labs entered, will notify patient of results as available Assessment & Plan (01/04/2021 11:47 AM CDT): Repeat cbc in the next 30d. We discussed hematology referral pending results. Edema of both legs 11/11/2020 Assessment & Plan (05/23/2021 1:47 PM DAY HABILITATION SPECIALIST): Chronic and stable at this time Assessment & Plan (11/11/2020 12:34 PM CDT): Add lasix every day x 5 days due to edema Onychomycosis 11/11/2020 Assessment & Plan (05/23/2021 1:46 PM DAY HABILITATION SPECIALIST): Continue with care per podiatry Assessment & Plan (11/11/2020 12:34 PM CDT): Will refer to podiatry for further evaluation and treatment Chronic thumb pain, right 11/03/2020 Assessment & Plan (11/03/2020 5:03 PM CDT): Offered and advised referral to ortho, she declines at this time Obesity, morbid, BMI 40.0-49.9 09/06/2020 Assessment & Plan (05/23/2021 1:46 PM DAY HABILITATION SPECIALIST): Obesity is unchanged. Discussed the patient's BMI. The BMI is above average. BMI management plan is completed. BMI Follow-up includes: nutrition counseling, exercise counseling and education provided. Assessment & Plan (12/28/2020 8:47 AM CDT): Obesity is unchanged. Discussed the patient's BMI. The BMI is above average. BMI management plan is completed. BMI Follow-up includes: nutrition counseling, exercise counseling and education provided. Assessment & Plan (11/11/2020 10:03 AM CDT): Obesity is unchanged. Discussed the patient's BMI. The BMI is above average. BMI management plan is completed. BMI Follow-up includes: nutrition counseling, exercise counseling and education provided. Assessment & Plan (11/03/2020 2:58 PM CDT): Obesity is unchanged. Discussed the patient's BMI. The BMI is above average. BMI management plan is completed. BMI Follow-up includes: nutrition counseling, exercise counseling and education provided. Assessment & Plan (09/20/2020 3:12 PM CDT): Obesity is unchanged. Discussed the patient's BMI. The BMI is above average. BMI management plan is completed. BMI Follow-up includes: nutrition counseling, exercise counseling and education provided. Assessment & Plan (09/06/2020 9:33 AM CDT): Obesity is unchanged. Discussed the patient's BMI. The BMI is above average. BMI management plan is completed. BMI Follow-up includes: nutrition counseling, exercise counseling and education provided. Cellulitis of lower extremity 09/06/2020 Assessment & Plan (01/04/2021 11:46 AM CDT): Resolved at this time. Encouraged continued exercise, elevation of legs when possible. Assessment & Plan (12/28/2020 5:35 PM CDT): Will start topical triamcinolone, antibiotic Advised to er if having streaking or symptoms worsen Assessment & Plan (11/11/2020 12:33 PM CDT): Improving, finish keflex Add lasix every day x 5 days due to edema Assessment & Plan (11/03/2020 5:03 PM CDT): Advised elevating leg when possible F/u in 1w if not improving, sooner if worsening Assessment & Plan (09/20/2020 7:32 PM CDT): Bactrim ds bid Will evaluate further with venous insufficiency study of legs Advised f/u in 1w if not improving, sooner if worsening Assessment & Plan (09/06/2020 11:09 AM CDT): Advised keflex x 10 days. Advised f/u if not improving at that time, sooner if worsening. History of diabetes mellitus, type II 09/06/2020 Assessment & Plan (05/23/2021 1:47 PM DAY HABILITATION SPECIALIST): Fasting labs entered, will notify patient of results as available Assessment & Plan (09/06/2020 11:11 AM CDT): We discussed her reported hgb a1c of 8.0%. She was reminded goal of 6.0%, which would put her at a 120 fasting. She has home glucometer and is going to start monitoring. She declines the advice to restart metformin at this time. We also discussed at length that typical guidelines with diabetes is to initiate a cholesterol medication and an KELSEY inhibitor for prevention. She declines these at the current time as well. She is going to start cutting back on potatoes/breads in diet. Vitamin D deficiency 09/06/2020 Assessment & Plan (05/23/2021 1:46 PM DAY HABILITATION SPECIALIST): labs entered, will notify patient of results as available Episode of recurrent major depressive disorder 0 09/06/2020 Assessment & Plan (05/23/2021 1:47 PM DAY HABILITATION SPECIALIST): Chronic, declines ssri/snri Assessment & Plan (12/28/2020 5:35 PM CDT): She denies s/h ideations. She declines medications or referral for psychiatrist/counselor at this time. Assessment & Plan (09/06/2020 11:12 AM CDT): Not currently medicated, not currently under care of psychiatrist. She reports that it is controlled at this time. Recurrent major depressive disorder, in partial remission 07/12/2020 Type 2 diabetes mellitus without complication 03 /12/2020 Resolved Problems Problem Noted Date Diagnosed Date Resolved Date Medicare annual wellness visit, subsequent 05/23/2021 11/28/2021 Assessment & Plan (05/23/2021 1:47 PM DAY HABILITATION SPECIALIST): She is going to consult with a testing projects administrator regarding living will/end of life care Obesity (BMI 30-39.9) 01/04/20212021 Assessment & Plan (01/04/2021 10:03 AM CDT): Obesity is unchanged. Discussed the patient's BMI. The BMI is above average. BMI management plan is completed. BMI Follow-up includes: nutrition counseling, exercise counseling and education provided. BMI 38.0-38.9,adult 01/04/2021 05/23/19 Assessment & Plan (01/04/2021 10:03 AM CDT): Obesity is unchanged. Discussed the patient's BMI. The BMI is above average. BMI management plan is completed. BMI Follow-up includes: nutrition counseling, exercise counseling and education provided. Need for vaccination with 13 -polyvalent pneumococcal conjugate vaccine 01/04/2021 Assessment & Plan (01/04/2021 11:47 AM CDT): prevnar 13 today Weight gain 11/11/2020 05/23/2021 Assessment & Plan (11/11/2020 12:33 PM CDT): Encouraged low sodium, heart healthy diet BMI 40.0-44.9, adult ([facility]) 09/06/2020 01/04/2021 Assessment & Plan (12/28/2020 8:48 AM CDT): Obesity is unchanged. Discussed the patient's BMI. The BMI is above average. BMI management plan is completed. BMI Follow-up includes: nutrition counseling, exercise counseling and education provided. Assessment & Plan (11/11/2020 10:03 AM CDT): Obesity is unchanged. Discussed the patient's BMI. The BMI is above average. BMI management plan is completed. BMI Follow-up includes: nutrition counseling, exercise counseling and education provided. Assessment & Plan (11/03/2020 2:58 PM CDT): Obesity is unchanged. Discussed the patient's BMI. The BMI is above average. BMI management plan is completed. BMI Follow-up includes: nutrition counseling, exercise counseling and education provided. Assessment & Plan (09/06/2020 9:33 AM CDT): Obesity is unchanged. Discussed the patient's BMI. The BMI is above average. BMI management plan is completed. BMI Follow-up includes: nutrition counseling, exercise counseling and education provided. Encounter to establish care 09/06/2020 05/23/2021 Assessment & Plan (09/06/2020 11:09 AM CDT): Retrieve records from previous pcp, including labs Immunizations Immunization Administration Dates Next Due Influenza, Trivalent, High D ose, Split, Preservative Free, Intramuscular 01/11/2017,01/19/2014,01/13/2013 Influenza, Unspecified 02/05/2020 Pfizer SARS-CoV-2 Monovalent Vaccination (12+ Yrs) PURPLE 01/30/2021,07/23/2020,07/02/2020 Pneumococcal Conjugate PCV 13 01/04/2021 Tdap 07/03/2020,08/11/2012 ZOSTER LIVE 08/11/2012 Medical History Medical History Date Comments Depression Diabetes mellitus (HCC) Vasculitis 11/2020 Family History Medical History Relation Name Comments Diabetes Father Kidney disease Father COPD Mother Relation Name Status Comments Father Mother Social History Tobacco Use Types Packs/Day Years Used Date Smoking Tobacco: Never Smokeless Tobacco: Never AUDIT-C Answer Date Recorded Q1: How often do you have a drink containing alc ohol? Never 05/23/2021 Average Number of Drinks Not on file 022 Q3: How often do you have si x or more drinks on one occasion? Never 05/23/2021 PHQ-2 Answer Date Recorded PHQ-2 Total Score (If total score is 3 or more points, staff should administer the PHQ-9) 4 05/23/2021 Personal Safety Answer Date Recorded Getting School Help Needed Not on file 04/21 Comments Unknown Sex and Gender Information Value Date Recorded Sex Assigned at Not on file Legal Sex Female 10:39 AM DAY HABILITATION SPECIALIST Gender Identity Not on file Sexual Orientation Not on file Occupation Industry Job Start Date Job End Date retired Not on file Not on file Not on file Obstetrics History Para Term AB IAB SAB Ectopic Multiple Livin g Live Births 0 0 0 0 0 0 0 0 0 0 0 Last Filed Vital Signs Vital Sign Reading Time Taken Comments Blood Pressure 180/78 07/19/2022 8:46 AM CDT Pulse 79 07/19/2022 8:46 AM CDT Temperature 36.9 C (98.5 F) 07/19/2022 8:46 AM CDT Respiratory Rate 18 07/19/2022 8:46 AM CDT Oxygen Saturation 100% 07/19/2022 8:46 AM CDT Inhaled Oxygen Concentration - - Weight 117.6 kg (259 lb 4.8 oz) 07/19/2022 8:46 AM CDT Height 169.2 cm (5' 6.61) 07/19/2022 8:46 AM CD T Body Mass Index 41.08 07/19/2022 8:46 AM CDT Plan of Treatment Health Maintenance Due Date Last Done Comments Albumin Creatinine Ratio, Urine 1945 Hepatitis C Screening 1945 eGFR 1945 Hepatitis B Screening 08/02/1963 Zoster Vaccine (2 of 3) 10/06/2012 08/11/2012 Pneumococcal vaccine 65+ (2 of 2 - PPSV23, PCV20, or PCV21) 03/01/2021 01/04/2021 Hemoglobin A1C 04/16/2021 10/15/2020, 10/15/2020 Lipid Panel 10/15/2021 10/15/2020 Depression Screening 05/23/2022 05/23/2021, 01/04/2021, 12/28/2020, Additional history exists Fall Risk Assessment 05/23/2022 05/23/2021, 11/03/2020, 09/06/2020 Well Visit 65+ 05/23/2022 05/23/2021 Osteoporosis Screening-Bone Density Scan 04/20/2023 04/20/2021 Covid-19 Vaccine (2023-2 5 season) 2024 01/30/2021, 07/23/2020, 07/02/2020 Influenza Vaccine (#1) 2025 , 01/11/2017, 01/19/2014, Additional history exists DTaP/Tdap/Td Vaccine (3 - Td or Tdap) 07/03/2030 07/03/2020, 08/11/2012 Colon Cancer Screening-Colonoscopy Discontinued 11/26/2013 Breast Cancer Screening-Mammogram Discontinued 021 Foot Exam Discontinued 01/17/2021 Dilated Eye Exam Discontinued Procedures Procedure Name Priority Date/Time Associated Diagnosis Comments DEXA AXIAL SKELETON BONE DENSITY 1 OR MORE SITES Schedule Routine, Read Routine (OP Routine) 04/20/2021 Menopause HM DIABETES FOOT EXAM Routine 01/17/2021 SCREENING MAMMOGRAM BILATERAL W [place] Schedule Routine, Read Routine (OP Routine) 10/27/2020 Encounter for screening mammogram for malignant neoplasm of breast HEMOGLOBIN A1C Routine 10/15/2020 Obesity, morbid, BMI 40.0-49.9 (HCC) Type 2 diabetes mellitus without complication, without long-term current use of insulin (HCC) LIPID PANEL Routine 10/15/2020 Obesity, morbid, BMI 40.0-49.9 (HCC) Type 2 diabetes mellitus without complication, without long-term current use of insulin (HCC) COLONOSCOPY REPORT 11/26/2013 from Last 3 Months or Most Recently Relevant to Health Maintenance Results * Dexa Axial Skeleton Bone Density 1 or 2 Site (04/20/2021) SCRIBED DXA T-SCORE 1.1 SCRIBED DXA Z-SCORE 2.8 SCRIBED DXA BMD 1.079 Anatomical Region Laterality Modality Body N/A Radiographic Josefina ging Lima ESTEVES IMG DXA PROCEDURES Final R esult * HM DIABETES FOOT EXAM (01/17/2021) Historical Provider HEALTH MAINTENANCE Final Result * Screening Mammogram Bilateral W [place] (10/27/2020) Anatomical Region Laterality Modality Breast Bilateral Mammography Impressions 10/27/2020 BI-Rads Category 1: negative Recommend routine screening mammography in one year. Lima ESTEVES IMG MAMMO PROCEDURES Final Result * Hemoglobin A1c (10/15/2020) SCRIBED Hemoglobin A1c 5.6 0 - 5.7 EXTERNAL LAB Blood specimen (specimen) 10/15/2020 Lima ESTEVES LAB BLOOD ORDERABLES Final Result EXTERNAL LAB * (ABNORMAL) Lipid panel (10/15/2020) SCRIBED Cholesterol, Total 192 0 - 200 EXTERNAL LAB SCRIBED HDL 59(A) 0 - 35 EXTERNAL LAB SCRIBED LDL 80 0 - 130 EXTERNAL LAB SCRIBED Triglycerides 93 0 - 150 EXTERNAL LAB Blood specimen (specimen) 10/15/2020 Lima ESTEVES LAB BLOOD ORDERABLES Final Result EXTERNAL LAB * COLONOSCOPY REPORT (11/26/2013) Anatomical Region Laterality Modality Other Narrative 11/26/2013 Ordered by an unspecified provider. Historical Provider GI PROCEDURE ORDERABLES F inal Result from Last 3 Months or Most Recently Relevant to Health Maintenance Insurance MEDICARE [facility] MEDICARE [facility] Care Teams Program Coordinator For Residence Life Relationship Specialty Start Date End Date Lima Wang PA PCP - General Qc Manager 08/25/20
--- OUTSIDE RECORDS SUMMARY | 2024-12-25 23:42 | XMS_ITS | Clinical Summary ---
Author Organization [facility] ([facility]) Yaya mancia Trinon[place] Address [address] [place] [address] Care Team Providers Care Chick Sexer Name Role Phone Nazanin Dawson MD Primary Care Provider [phone]- [phone] Allergies Active Allergy Reactions Criticality Noted Date Comments Codeine Nausea and Vomiting,Other (See Comments),Unknown High 09/06/2020 Patient states they get pain Medications No known medications Active Problems No known active problems Family History Medical History Relation Name Comments Colon Cancer Brother 1 Diabetes Brother 2 Prostate Cancer Brother 3 Diabetes Father Prostate Cancer Father Mesothelioma Mother Relation Name Status Comments Brother 1 Brother 2 Brother 3 Alive Brother 4 Alive Father Mother Social History Tobacco Use Types Packs/Day Years Used Date Smoking Tobacco: Never Smokeless Tobacco: Never Tobacco Cessation:Counseling Given: Not Answered Alcohol Use Standard Drinks/Week Comments Never 0 (1 standard drink = 0.6 oz pur e alcohol) Comments Unknown Sex and Gender Information Value Date Recorded Sex Assigned at Not on file Legal Sex Female 12:47 PM CDT Gender Identity Not on file Sexual Orientation Not on file Last Filed Vital Signs Vital Sign Reading Time Taken Comments Blood Pressure 200/80 10/06/2022 2:41 PM CDT Pulse 77 10/06/2022 2:27 PM CDT Temperature 36.8 C (98.2 F) 10/06/2022 2:27 PM CDT Respiratory Rate 10 10/06/2022 2:27 PM CDT Oxygen Saturation 97% 10/06/2022 2:27 PM CDT Inhaled Oxygen Concentration - - Weight 117 kg (258 lb) 10/06/2022 2:27 PM CDT Height 172.7 cm (5' 8) 10/06/2022 2:27 PM CDT Body Mass Index 39.23 10/06/2022 2:27 PM CDT Plan of Treatment Health Maintenance Due Date Last Done Comments DIABETES ANNUAL FOOT EXAM 08[birth year]02/1963 DIABETES ANNUAL RETINAL EXAM 08/02[birth year]1965 DIABETES MICROALBUMIN ANNUAL SCREEN 08/02/1965 LDL CHOLESTEROL ANNUAL 08/02/1965 ZOSTER VACCINE (2 of 3) 10/06/2012 08/11/2012 DIABETES HBA1C Q 6 MONTHS 01/12/2021 07/12/2020 PNEUMOCOCCAL VACCINE 50+ YEA RS (2 of 2 - PPSV23, PCV20, or PCV21) 03/01/2021 01/04/2021 RSV VACCINE (60+ or ) (1 - 1-dose 75+ series) 08/02/2022 INFLUENZA VACCINE (#1) 2024 7, 01/19/2014, 01/13/2013 OSTEOPOROSIS SCREENING 04/20/2026 04/20/2021 DTAP/TDAP/TD VACCINES (3 - T d or Tdap) 07/03/2030 07/03/2020, 08/11/2012 Insurance MEDICARE PART A AND B [facility] Care Teams Chick Sexer Relationship Specialty Start Date End Date Nazanin Dawson MD PCP - General Family Practice 10/06/22
--- OUTSIDE RECORDS SUMMARY | 2024-12-25 23:42 | XMS_ITS | Patient Health Record ---
Author Organization [facility] Address [address] [place] [address] Care Team Providers Care Tonal Regulator Name Role Phone JannDivideKeena Primary Care Provider [phone] Allergies Allergen (clinical drug ingredient) Drug/Non Drug Allergy documented on EMR Reaction Allergy Type Onset Date Status codeine Codeine Sulfate nausea and vomiting Drug Allergy Active Reason For Referral No Information Medications Medication SIG (Take, Route, Frequency, Duration) Notes Start Date End Date Status LANCETS thin as directed to skin once daily; Duration: 30 days 07/12/2020 Active GLUCOMETER, FORMULARY ANY DIRECTED DIRECTED DIRECTED; Duration: 360 DAYS 07/12/2020 Active Atorvastatin Calcium 10 MG 1 tablet Oral ly Once a day; Duration: 30 day(s) 07/12/2020 Active metFORMIN HCl ER 500 MG 1 tablet daily f or three days, then BID for one week, then 2 tablets BID Orally Once a day; Duration: 30 day(s) 07/12/2020 Active TEST STRIPS, FORMULARY ANY DIRECTED V IA METER once daily; Duration: 30 days 07/12/2020 Active Ergocalciferol 1.25 MG (12207 UT) 1 capsule Orally weekly; Duration: 90 days 07/13/2020 Active Problems Problem Type SNOMED Code ICD Code Onset Dates Problem Status W/U Status Risk Notes Problem Vitamin D deficiency (44614989) Vitamin D deficiency (E55.9) Active confirmed Problem Recurrent major depression in remission (91485243) Recurrent major depressive disorder, in partial remission (F33.41) Active confirmed Problem Type II diabetes mellitus without complication (648360578) Type 2 diabetes mellitus without complication, without long-term current use of insulin (E11.9) 1 Active confirmed Plan Of Treatment Future Test Test Name Order Date MAMMOGRAM BILAT, SCREENING 08/02/2020 Bone Density 08/02/2020 CBC With Differential/Platelet* 08/11/19 21 Insurance Providers Payer Name Payer Address Payer Phone Subscriber Number Group Number Insured Name Patient Relationship to Insured Coverage Start Date Coverage End Date MEDICARE PART A [address] [place] [address] [id number] Nely Fitch Self - patient is the insured 1 [facility] [address] [place] [address] [id number] Nely Fitch Self - patient is the insured 1 Medical (General) History Medical History History ICD Code diabetic Degenerative disc disease Surgical History Surgery Date(Month/Year)
--- NOTE | 2024-12-26 00:01 | ED_ITS ---
HPI - Fall General Chief Complaint: Fall <CECILY Guallpa Last Filed: 12/26/24 02:00> Stated Complaint: GLF @ 1130 today <CECILY Guallpa Last Filed: 12/26/24 02:00> History of Present Illness HPI Narrative: 79-year-old female with history of uterine cancer, chronic back pain, hypertension presents to emergency department via EMS from a ground level fall that occurred at 11:30 a.m.. Patient states she was attempting to get out of bed when she tripped and fell and landed on the ground. She states her left leg was caught in the stationary bike next to her and caused her to obtain a hematoma to the left tibia. Patient states she was unable to get off of the ground after the fall and could crawl to her phone until approximately 12 hours later. Once able to get to her phone, she contacted EMS and was transported here. She is endorsing acute on chronic low back pain since the fall. She states she did not hit her head or lose consciousness. She is not anticoagulated. She denies any chest pain, abdominal pain, urinary complaints, fever, neck pain. She states she normally ambulates with a cane but has been unable to ambulate since fall due to generalized weakness and pain. She lives at home by herself. <Stephanie Jones PA-C - Last Filed: 12/26/24 02:00> Related Data Home Medications: Home Medications ?Medication ?Instructions ?Recorded ?Confirmed ?Last Taken ?Type cholecalciferol (vitamin D3) 125 125 mcg PO DAILY ##0 02/23/24 02/27/24 Unknown History mcg (5,000 unit) tablet <CECILY Guallpa Last Filed: 12/26/24 02:00> Allergies/Adverse Reactions: Allergies Allergy/AdvReac Type Severity Reaction Status Date / Time codeine Allergy Severe Muscle Pain Verified 12/25/24 23:34 <CECILY Guallpa Last Filed: 12/26/24 02:00> Review of Systems 2 Review of Systems: All systems reviewed & are unremarkable except as noted in HPI and below <CECILY Guallpa Last Filed: 12/26/24 02:00> PMFSH Past Medical History Medical History: Medical History Generalized edema Uterine cancer stage T2 N0(i+)sn M0, 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 She has now completed adjuvant whole pelvic radiation therapy delivered between 10/30/2022 and 12/07/2022. Status post total hysterectomy Diabetes Morbid obesity <Stephanie Jones PA-C - Last Filed: 12/26/24 02:00> Surgical History Surgical History: Surgical History Status post total hysterectomy and bilateral salpingo-oophorectomy <Stephanie Jones PA-C - Last Filed: 12/26/24 02:00> Social History Social History: Social History Smoking status: Never smoker Second hand tobacco smoke exposure: No Alcohol intake: never Substance use: never Substance use type: does not use Do You Feel Safe in your Home?: Yes Lack of Transportation: No Lack of Food: Never True Current Housing: I Have Housing Concerned About Future Housing: No Difficulty Paying Gas/Electric Bills: No Difficulty Paying for Meds: No Currently Unemployed: No Education: Bachelor's Degree Difficulty w/ Childcare or Family Care: No Living arrangements: alone Occupation/Education: retired Gender identity (if verbalized by the patient): Female Sexual Orientation (if Verbalized by the Patient): Straight or Heterosexual Spiritual care concerns: No <Stephanie Jones PA-C - Last Filed: 12/26/24 02:00> Exam 2 Narrative: GENERAL: Poor hygiene, unkempt, smells of urine HEAD: Normocephalic, atraumatic. EYES: PERRLA and EOMI. ENT: Nares clear, no rhinorrhea or epistaxis. Mucous membranes moist. NECK: Supple. No midline cervical spinous tenderness, crepitus, step-offs or deformities BACK: No midline thoracic spinous tenderness, crepitus step-offs or deformities. Mild tenderness to the lumbar spine without crepitus, step-offs or deformities CHEST: Clear to auscultation. No respiratory distress. No tenderness to chest wall HEART: Regular rate and rhythm. No murmur heard. Normal peripheral pulses. ABDOMEN: Soft, nontender, nondistended, normal active bowel sounds. EXTREMITIES: Hematoma with overlying ecchymosis noted to the left tibia with tenderness. Mild tenderness to the left knee and medial malleolus. no obvious deformity. DP pulse 2 +. Sensation intact. No tenderness remainder of extremities. Full active and passive range of motion of BUE and BLE. SKIN: Warm, dry, no rash. NEURO: No focal deficits. Alert and oriented x3 <Stephanie Jones PA-C - Last Filed: 12/26/24 02:00> Course DISPLAY FABRICATOR/PA Physician Supervision This visit was performed by both a physician and an APC. For this patient encounter, I reviewed the DISPLAY FABRICATOR or PA documentation, treatment plan, and medical decision making and had [id number] time with this patient. I performed all aspects of the MDM as documented. <Genna Kee MD - Last Filed: 12/26/24 02:26> Vital Signs Vital signs: Vital Signs Temperature 98.3 F 12/25/24 23:24 Pulse Rate 92 12/25/24 23:24 Respiratory Rate 12 12/25/24 23:24 Blood Pressure 145/73 H 12/25/24 23:24 Pulse Oximetry 100 12/25/24 23:24 Oxygen Delivery Room Air 12/25/24 23:24 Temperature 98.3 F 12/25/24 23:33 Pulse Rate 92 12/25/24 23:33 Respiratory Rate 18 12/25/24 23:33 Blood Pressure 145/73 H 12/25/24 23:33 Pulse Oximetry 100 12/25/24 23:33 Oxygen Delivery Room Air 12/25/24 23:24 <Stephanie Jones PA-C - Last Filed: 12/26/24 02:00> Vital Signs Temperature 98.3 F 12/25/24 23:24 Pulse Rate 92 12/25/24 23:24 Respiratory Rate 12 12/25/24 23:24 Blood Pressure 145/73 H 12/25/24 23:24 Pulse Oximetry 100 12/25/24 23:24 Oxygen Delivery Room Air 12/25/24 23:24 Temperature 98.3 F 12/25/24 23:33 Pulse Rate 92 12/25/24 23:33 Respiratory Rate 18 12/25/24 23:33 Blood Pressure 145/73 H 12/25/24 23:33 Pulse Oximetry 100 12/25/24 23:33 Oxygen Delivery Room Air 12/25/24 23:24 <Genna Kee MD - Last Filed: 12/26/24 02:26> MDM - Fall MDM Narrative Medical decision making narrative: 79-year-old female presents emergency department after ground level mechanical fall that occurred this morning at 11:30 a.m.. See HPI for further history. Triage vitals are stable. Exam is notable for the above. CBC shows chronic pancytopenia with a white blood cell count of 3.7, hemoglobin of 10.9 and platelets of 119. Chemistries with elevated bilirubin of 2.5 which is likely due to dehydration, otherwise largely unremarkable. Her CK mildly is mildly elevated to 43. Fluids provided. UA indicative of UTI with 2150 white blood cells, 6-10 rbc's, 1+ leuk esterase. Urine culture ordered and pending. Lactic and magnesium within normal limits. EKG shows sinus rhythm with first-degree AV block, marked LAD, no ST elevations or depressions. X-ray of the left knee, left tib-fib and left ankle show no acute osseous findings. CXR shows no acute findings. Patient updated on results. She has been unable to ambulate at her baseline since the fall due to generalized weakness and pain. I did offer pain medications beyond tylenol, however patient politely declined. Feel she would benefit from admission with PT, OT and IV antibiotics for UTI. I did also discuss consulting care coordination for possible assisted living/fci placement which patient is agreeable with. Discussed with hospitalist, Barby LANE, who agrees to admission. <Stephanie Jones PA-C - Last Filed: 12/26/24 02:00> Lab Data Result diagrams: 12/26/24 01:05 12/26/24 01:05 <Stephanie Jones PA-C - Last Filed: 12/26/24 02:00> Labs: Lab Results 12/26/24 12/26/24 Range/Units 00:06 01:05 WBC 3.7 L (4.5-10.0) K/mm3 RBC 4.56 (4.2-5.4) M/mm3 Hgb 10.9 L (12.0-15.0) g/dL Hct 36.5 L (37.0-47.0) % MCV 80.0 (80-100) fl MCH 23.9 L (26-34) pg MCHC 29.9 L (32-36) g/dl RDW 20.5 H (11.5-14.5) % Plt Count 119 L (150-375) k/mm3 MPV 10.9 H (7.4-10.4) fl Immature Gran % (Auto) 0.5 (0-0.5) % Neut % (Auto) 49.9 (45.5-73.1) % Lymph % (Auto) 11.8 L (18.3-44.2) % [place] % (Auto) 37.0 H (2.6-8.5) % Eos % (Auto) 0.5 (0-4.4) % Baso % (Auto) 0.3 (0.2-1.2) % Lymph # (Auto) 0.44 L (0.9-3.2) K/mm3 [place] # (Auto) 1.4 H (0.1-0.6) K/mm3 Eos # (Auto) 0.0 (0-0.3) K/mm3 Baso # (Auto) 0.0 (0.0-0.1) K/mm3 Abs Immat Gran (auto) 0.02 (0.00-0.031) K/mm3 Absolute Neuts (auto) 1.9 (1.3-6.7) K/mm3 Absolute Nucleated RBC 0.000 (0.0-0.012) K/mm3 Band Neutrophils % Not Reportable Nucleated RBC % 0.0 (0.0-0.2) % Platelet Estimate Adequate (Adequate) % Immature Plt Fraction 3.2 (0.9-11.2) % Hypochromasia 1+ Anisocytosis 1+ Microcytosis 1+ (NORMAL) Ovalocytes Occasional Schistocytes None seen Sodium 135 L (137-145) mmol/L Potassium 3.9 (3.4-5.0) mmol/L Chloride 106 (98-107) mmol/L Carbon Dioxide 23 (22-30) mmol/L Anion Gap 6 (4-12) mmol/L BUN 9 D (7-17) mg/dL Creatinine 0.64 L (0.7-1.0) mg/dL Estim Creat Clear Calc 85 ml/min Estimated GFR > 60 (59 - ) Glucose 109 (65-110) mg/dL Lactic Acid 1.6 (0.7-2.0) mmol/L Calcium 8.6 (8.4-10.2) mg/dL Magnesium 1.7 (1.6-2.3) mg/dL Total Bilirubin 2.5 H (0.2-1.3) mg/dL AST 48 H (14-36) U/L ALT 27 (6-35) U/L Alkaline Phosphatase 103 (38-126) U/L Total Creatine Kinase 483 H (30-135) U/L Total Protein 7.0 (6.3-8.2) g/dL Albumin 3.4 L (3.5-5.1) g/dL Urine Color Yellow (Yellow) Urine Appearance Clear (Clear) Urine pH 7.5 (5.0-9.0) Ur Specific [place] 1.014 (1.001-1.035) Urine Protein Negative (Negative) mg/dL Urine Glucose (UA) Negative (Negative) mg/dL Urine Ketones Negative (Negative) mg/dL Ur Blood (Man) Trace (Negative) Urine Nitrate Negative (Negative) Urine Bilirubin Negative (Negative) Urine Urobilinogen 1.0 (<2.0) mg/dL Add Ur Microanalysis Reviewed Leukocyte Esterase Rfl 1+ H (Negative) JAYNA/UL Urine RBC 6-10 H (0-2) /hpf Urine WBC 21-50 H (0-3) /hpf Ur Squamous Epith Cells None seen (Few) /hpf Urine Bacteria 3+ H /hpf Urine Casts 0-2 Urine Mucus Present /lpf <Stephanie Jones PA-C - Last Filed: 12/26/24 02:00> Lab Results 12/26/24 12/26/24 Range/Units 00:06 01:05 WBC 3.7 L (4.5-10.0) K/mm3 RBC 4.56 (4.2-5.4) M/mm3 Hgb 10.9 L (12.0-15.0) g/dL Hct 36.5 L (37.0-47.0) % MCV 80.0 (80-100) fl MCH 23.9 L (26-34) pg MCHC 29.9 L (32-36) g/dl RDW 20.5 H (11.5-14.5) % Plt Count 119 L (150-375) k/mm3 MPV 10.9 H (7.4-10.4) fl Immature Gran % (Auto) 0.5 (0-0.5) % Neut % (Auto) 49.9 (45.5-73.1) % Lymph % (Auto) 11.8 L (18.3-44.2) % [place] % (Auto) 37.0 H (2.6-8.5) % Eos % (Auto) 0.5 (0-4.4) % Baso % (Auto) 0.3 (0.2-1.2) % Lymph # (Auto) 0.44 L (0.9-3.2) K/mm3 [place] # (Auto) 1.4 H (0.1-0.6) K/mm3 Eos # (Auto) 0.0 (0-0.3) K/mm3 Baso # (Auto) 0.0 (0.0-0.1) K/mm3 Abs Immat Gran (auto) 0.02 (0.00-0.031) K/mm3 Absolute Neuts (auto) 1.9 (1.3-6.7) K/mm3 Absolute Nucleated RBC 0.000 (0.0-0.012) K/mm3 Band Neutrophils % Not Reportable Nucleated RBC % 0.0 (0.0-0.2) % Platelet Estimate Adequate (Adequate) % Immature Plt Fraction 3.2 (0.9-11.2) % Hypochromasia 1+ Anisocytosis 1+ Microcytosis 1+ (NORMAL) Ovalocytes Occasional Schistocytes None seen Sodium 135 L (137-145) mmol/L Potassium 3.9 (3.4-5.0) mmol/L Chloride 106 (98-107) mmol/L Carbon Dioxide 23 (22-30) mmol/L Anion Gap 6 (4-12) mmol/L BUN 9 D (7-17) mg/dL Creatinine 0.64 L (0.7-1.0) mg/dL Estim Creat Clear Calc 85 ml/min Estimated GFR > 60 (59 - ) Glucose 109 (65-110) mg/dL Lactic Acid 1.6 (0.7-2.0) mmol/L Calcium 8.6 (8.4-10.2) mg/dL Magnesium 1.7 (1.6-2.3) mg/dL Total Bilirubin 2.5 H (0.2-1.3) mg/dL AST 48 H (14-36) U/L ALT 27 (6-35) U/L Alkaline Phosphatase 103 (38-126) U/L Total Creatine Kinase 483 H (30-135) U/L Total Protein 7.0 (6.3-8.2) g/dL Albumin 3.4 L (3.5-5.1) g/dL Urine Color Yellow (Yellow) Urine Appearance Clear (Clear) Urine pH 7.5 (5.0-9.0) Ur Specific [place] 1.014 (1.001-1.035) Urine Protein Negative (Negative) mg/dL Urine Glucose (UA) Negative (Negative) mg/dL Urine Ketones Negative (Negative) mg/dL Ur Blood (Man) Trace (Negative) Urine Nitrate Negative (Negative) Urine Bilirubin Negative (Negative) Urine Urobilinogen 1.0 (<2.0) mg/dL Add Ur Microanalysis Reviewed Leukocyte Esterase Rfl 1+ H (Negative) JAYNA/UL Urine RBC 6-10 H (0-2) /hpf Urine WBC 21-50 H (0-3) /hpf Ur Squamous Epith Cells None seen (Few) /hpf Urine Bacteria 3+ H /hpf Urine Casts 0-2 Urine Mucus Present /lpf <Genna Kee MD - Last Filed: 12/26/24 02:26> Discharge Plan Discharge Clinical Impression: Dehydration, UTI (urinary tract infection), Acute on chronic back pain Contusion of left leg Qualifiers: Encounter type: initial encounter Qualified Code(s): S80.12XA - Contusion of left lower leg, initial encounter Fall Qualifiers: Encounter type: initial encounter Qualified Code(s): W19.XXXA - Unspecified fall, initial encounter <CECILY Guallpa Last Filed: 12/26/24 02:00> Patient Disposition: Still a Patient <CECILY Guallpa Last Filed: 12/26/24 02:00> Condition: Stable <CECILY Guallpa Last Filed: 12/26/24 02:00> Patient Language: Greek <CECILY Guallpa Last Filed: 12/26/24 02:00> Prescriptions: No Action cholecalciferol (vitamin D3) 125 mcg (5,000 unit) Tablet 125 mcg PO DAILY Qty: 0 methocarbamol 750 mg Tablet 750 mg PO QID Qty: 30 0RF docusate sodium 100 mg Capsule 100 mg PO BID Qty: 20 0RF gabapentin [Neurontin] 300 mg Capsule 300 mg PO TID Qty: 30 0RF ciprofloxacin HCl 500 mg Tablet 500 mg PO Q12HR Qty: 14 0RF hydrochlorothiazide 25 mg Tablet 25 mg PO QAM Qty: 30 0RF acetaminophen 500 mg Tablet 500 mg PO Q6-12H PRN (Reason: Pain) Qty: 30 0RF <CECILY Guallpa Last Filed: 12/26/24 02:00> Follow-up/Referrals: Yosi Temple MD [Primary Care Provider, Family Practice] <CECILY Guallpa Last Filed: 12/26/24 02:00>
[2024-12-26 00:31] LABS: Add Urine Microscopic? YES; Appearance Urine Clear (Clear); Glucose Urine UA Negative (Negative); Leukocyte Esterase Ur 1+ LEU/UL (Negative); Need Manual Microscopic Reviewed; Nitrate Urine Negative (Negative); Non Pathogenic Casts 0-2; Specific Grav Ur 1.014 (1.001-1.035)
[2024-12-26] MEDS: ACETAMINOPHEN 325 MG TABLET 650 MG PO ×3 (00:51→20:39)
[2024-12-26] MEDS: cefTRIAXone 1 GM in SODIUM CHLORIDE 0.9% IV 50 ML 100 ML IVPB ×2 (01:07→20:39)
[2024-12-26 01:13] LABS: Hematocrit 36.5 % (37.0-47.0); Hemoglobin 10.9 g/dL (12.0-15.0); Immature Granulocyte Percent A 0.5 % (0-0.5); Immature Platelet Fraction Pct 3.2 % (0.9-11.2); Lymphocytes Absolute Auto 0.44 K/mm3 (0.9-3.2); Mean Corpuscular HGB Conc 29.9 g/dl (32-36); Mean Corpuscular Hemoglobin 23.9 pg (26-34); Mean Corpuscular Volume 80.0 fl (80-100); Nucleated Red Blood Cells Absolute Auto 0.000 K/mm3 (0.0-0.012); Nucleated Red Blood Cells Perc 0.0 % (0.0-0.2); Platelet Count Result 119 k/mm3 (150-375); Red Blood Count 4.56 M/mm3 (4.2-5.4); White Blood Count 3.7 K/mm3 (4.5-10.0)
[2024-12-26 01:24] LABS: Alanine Aminotransferase 27 U/L (6-35); Albumin Level 3.4 g/dL (3.5-5.1); Alkaline Phosphatase 103 U/L (38-126); Anion Gap 6 mmol/L (4-12); Aspartate Amino Transferase 48 U/L (14-36); Bilirubin,Total 2.5 mg/dL (0.2-1.3); Blood Urea Nitrogen 9 mg/dL (7-17); Calcium 8.6 mg/dL (8.4-10.2); Carbon Dioxide 23 mmol/L (22-30); Chloride 106 mmol/L (98-107); Creatine Kinase 483 U/L (30-135); Estimated CRCL calculation 85 ml/min; Estimated Glomerular Filt Rate > 60; Glucose 109 mg/dL (65-110); Magnesium 1.7 mg/dL (1.6-2.3); Potassium 3.9 mmol/L (3.4-5.0); Sodium 135 mmol/L (137-145); Total Protein 7.0 g/dL (6.3-8.2)
[2024-12-26 01:34] LABS: Anisocytosis 1+; Hypochromasia 1+; Microcytosis 1+ (NORMAL)
[2024-12-26 01:35] LABS: Ovalocytes Occasional; Schistocytes None Seen
[2024-12-26] MEDS: SODIUM CHLORIDE 0.9% IV 1,000 ML 999 ML IV CONT (02:07)
--- NOTE | 2024-12-26 02:44 | P.HP_ITS ---
H&P: HPI History of Present Illness Date/Time: 12/26/24 02:44 Chief Complaint: Fall and weakness Narrative: This is a 79-year-old female patient with past medical history of uterine cancer, chronic back pain, hypertension in vitamin-D deficiency who was brought to the emergency room tonight by EMS after sustaining a ground level fall at home and being unable to get up for hours. Patient reports to me that she was attempting to get out bed yesterday morning at approximately 11:30 a.m. and she has a new bed that is automatic in the back raises up and down on it. She states that when she attempted to get out of bed it did not move the way she needed to and it slid off of platform and patient falling to the floor as a result. Patient states due to her back pain she was unable to get up and she did eventually crawled to a phone to notify 911 but this was only after she laid there are approximately 10-1/2 hours. Patient states she has no new pain since the fall. She arrived to the emergency room appearing fairly poorly kempt, foul odorous urine present and being very weak. Patient states at baseline at home she walks with either a cane or a walker, however she is too weak right now to even attempt to walk with any assistive devices. In the emergency room workup was performed that showed a pancytopenia with wbc's of 3.7, (noted this is higher than what patient normally runs), hemoglobin of 10.9 and platelets of 119. Metabolic panel is remarkable for elevated bilirubin at 2.5 and elevated AST, that of which is baseline for patient with exception of the elevated bilirubin. Patient's CK was 483. Very foul-smelling urine is reflecting 1+ leukocyte esterase, 6-10 rbc's and 21-50 wbc's without any epithelials noted. There is 3+ bacteria in the urine. Imaging was performed of left tib-fib, left knee, chest x-ray and left ankle. Final results still pending. Blood cultures x2 are pending and urine culture is also pending. EKG reviewed is showing normal sinus rhythm with first-degree AV block and left axis deviation. Patient admits she is too sick and too weak to return home independently which is how she currently lives. She is being admitted to the hospital in the current setting for continued management of her urinary tract infection, and hydration IV fluids. 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 She has now completed adjuvant whole pelvic radiation therapy delivered between 10/30/2022 and 12/07/2022. Status post total hysterectomy Diabetes Morbid obesity Surgical History Surgical History Status post total hysterectomy and bilateral salpingo-oophorectomy Social History Social History Smoking status: Never smoker Second hand tobacco smoke exposure: No Alcohol intake: never Substance use: never Substance use type: does not use Do You Feel Safe in your Home?: Yes Lack of Transportation: No Lack of Food: Never True Current Housing: I Have Housing Concerned About Future Housing: No Difficulty Paying Gas/Electric Bills: No Difficulty Paying for Meds: No Currently Unemployed: No Education: Bachelor's Degree Difficulty w/ Childcare or Family Care: No Living arrangements: alone Occupation/Education: retired Gender identity (if verbalized by the patient): Female Sexual Orientation (if Verbalized by the Patient): Straight or Heterosexual Spiritual care concerns: No Meds Home Medications and Allergies Home Medications ?Medication ?Instructions ?Recorded ?Confirmed ?Type cholecalciferol (vitamin D3) 125 125 mcg PO DAILY ##0 02/23/24 02/27/24 History mcg (5,000 unit) tablet docusate sodium 100 mg capsule 100 mg PO BID #20 caps 02/27/24 02/27/24 Rx gabapentin 300 mg capsule 300 mg PO TID #30 caps 02/2602/27/24 Rx (Neurontin) methocarbamol 750 mg tablet 750 mg PO QID #30 tabs 02/27/24 Rx acetaminophen 500 mg tablet 500 mg PO Q6-12H PRN Pain #30 tabs 03/07/24 02/27/24 Rx ciprofloxacin HCl 500 mg tablet 500 mg PO Q12HR #14 ta bs 03/07/24 Rx hydrochlorothiazide 25 mg tablet 25 mg PO QAM #30 tabs 03/07/24 Rx Allergies Allergy/AdvReac Type Severity Reaction Status Date / Time codeine Allergy Severe Muscle Pain Verified 12/25/24 23:34 Vital Signs Vital Signs - 24 hr 12/25/24 23:24 12/25/24 23:33 Temperature 98.3 F 98.3 F Pulse Rate 92 92 Respiratory Rate 12 18 Blood Pressure 145/73 H 145/73 H Pulse Oximetry 100 100 Oxygen Delivery Room Air Exam Const: General: comfortable and no acute distress Other: Pleasant, talkative elderly female patient lying supine at this time in no acute distress HENMT: Face/Nose/Sinus: Normal nares present Mouth: Yes dry mucous membranes Eyes: General: appearance normal, both eyes and all related structures Sclera: sclerae normal Pupils: Equal, round and reactive pupils present Neck: Neck: supple and no JVD Thyroid: thyroid normal Lymphatic: lymphadenopathy not noted Chest: Other: Nontender Resp: Effort & Inspection: normal respiratory effort Auscultation: clear to auscultation bilaterally Cardio: Rate: regular rate Rhythm: regular rhythm Heart sounds: no gallops, no murmurs and no rubs GI: GI Palp: Yes Soft to palpation and No Tenderness to palpation present (GI) Auscultation: normal bowel sounds Skin: General skin exam: normal color, no rashes or lesions noted and no erythema Wounds: no wounds Neuro: Speech: normal speech Motor exam (neuro): Abnormal motor strength present (Generalized, nonfocal weakness) Sensory Exam: normal sensation Extrem: Other: Freely and equally moves all extremities well without deficit Psych: Mental Status: mental status grossly normal Affect: normal affect H&P: Results Labs Labs: Short CBC 12/26/24 Range/Units 01:05 WBC 3.7 L (4.5-10.0) K/mm3 Hgb 10.9 L (12.0-15.0) g/dL Hct 36.5 L (37.0-47.0) % Plt Count 119 L (150-375) k/mm3 BMP 12/26/24 01:05 Sodium 135 L Potassium 3.9 Chloride 106 Carbon Dioxide 23 BUN 9 D Creatinine 0.64 L Glucose 109 Calcium 8.6 Cardiac Enzymes 12/26/24 Range/Units 01:05 Total Creatine Kinase 483 H (30-135) U/L Liver Function 12/26/24 Range/Units 01:05 Total Bilirubin 2.5 H (0.2-1.3) mg/dL AST 48 H (14-36) U/L ALT 27 (6-35) U/L Alkaline Phosphatase 103 (38-126) U/L Albumin 3.4 L (3.5-5.1) g/dL Urine 12/26/24 Range/Units 00:06 Urine Color Yellow (Yellow) Urine Appearance Clear (Clear) Urine pH 7.5 (5.0-9.0) Ur Specific [place] 1.014 (1.001-1.035) Urine Protein Negative (Negative) mg/dL Urine Glucose (UA) Negative (Negative) mg/dL Assessment and Plan Assessment and plan (1) Accident due to mechanical fall without injury: Code(s): W19.XXXA - Unspecified fall, initial encounter Status: Acute Assessment and Plan: * Patient reportedly fell attempting to get out of bed. * Imaging obtained left tib-fib, left knee, left ankle and chest and are still pending results. * Fall precautions * PT and OT evaluation to determine safety for return to independently. (2) Dehydration: Code(s): E86.0 - Dehydration Status: Acute Assessment and Plan: * As evidenced by elevated CK * Continue IV fluid hydration of normal saline at 100 mL/hour. * Heart healthy diet (3) UTI (urinary tract infection): Qualifiers: Hematuria presence: without hematuria Urinary tract infection type: acute cystitis Qualified Code(s): N30.00 - Acute cystitis without hematuria Code(s): N39.0 - Urinary tract infection, site not specified Status: Acute Assessment and Plan: * As noted per recent urinalysis. * Patient is not currently meeting sepsis criteria. * Previous microbiology is were reviewed and they show that patient has grown ou t E coli multiple times from her urine. Blood cultures x2 currently pending. (4) Pancytopenia: Code(s): D61.818 - Other pancytopenia Status: Chronic Assessment and Plan: * Marginally low WBCs at 3.7, hemoglobin at 10.9 and platelets at 119. It steven uld be noted that these values are still improvement over previous on comparison * No bleeding noted. (5) Gait abnormality: Code(s): R26.9 - Unspecified abnormalities of gait and mobility Status: Acute Assessment and Plan: * Patient complains of generalized weakness. PT and OT evaluate and treat ordered. * Fall precautions ordered. * Appreciate the recommendation of therapies making their recommendation upon discharge. Quality VTE Prophylaxis VTE prophylaxis: mechanical ordered Hospitalist MIPS Advance Care Plan I have confirmed that the patient's Advanced Care Plan is present, code status is documented, or surrogate decision maker is listed in patient medical record.: Yes Medication Reconciliation I have utilized all available resources to obtain, update and review the patients current medications (includes all prescriptions, OTC, herbals, cannabis, and nutritional supplements).: Yes
[2024-12-26 03:05] VITALS: BP 169/62; PULSE 79; RESP 17; O2SAT 100
[2024-12-26 03:47] VITALS: BP 143/58; PULSE 74; RESP 16; TEMP 36.4; O2SAT 100
[2024-12-26 03:54] VITALS: BMI 39.2
--- NOTE | 2024-12-26 03:57 | ADMGEN ---
This patient, Nely Fitch, was admitted to [facility] Surg Room 325-01. Patient/family oriented to hospital policies and general routines including ID bracelet, bed and alarms, visiting hours, pain management, procedures, bathroom and other care routines, personal items, smoking policy, room service/diet, and visiting hours. Information on how to activate the Rapid Response Team has been discussed. Patient/Family are encouraged to report perceived risks to care and to ask questions if they do not understand what they are told or what they should do.
[2024-12-26] MEDS: SODIUM CHLORIDE 0.9% IV 1,000 ML 100 ML IV CONT ×2 (04:47→20:39)
[2024-12-26 14:00] VITALS: BP 139/61; PULSE 69; RESP 18; TEMP 37; O2SAT 100
--- NOTE | 2024-12-26 14:13 | P.PNIM_ITS ---
Progress Note: A&P Assessment and Plan (1) Accident due to mechanical fall without injury: Code(s): W19.XXXA - Unspecified fall, initial encounter Status: Acute Assessment and Plan: * Patient reportedly fell attempting to get out of bed. * Imaging obtained left tib-fib, left knee, left ankle and chest neg for acute abnormality * Fall precautions * PT and OT evaluation to determine safety for return to independently. (2) Dehydration: Code(s): E86.0 - Dehydration Status: Acute Assessment and Plan: * As evidenced by elevated CK * Continue IV fluid hydration of normal saline . * Heart healthy diet (3) UTI (urinary tract infection): Qualifiers: Hematuria presence: without hematuria Urinary tract infection type: acute cystitis Qualified Code(s): N30.00 - Acute cystitis without hematuria Code(s): N39.0 - Urinary tract infection, site not specified Status: Acute Assessment and Plan: * As noted per recent urinalysis. * Patient is not currently meeting sepsis criteria. * Previous microbiology is were reviewed and they show that patient has grown out E coli multiple times from her urine. Blood cultures x2 currently pending. (4) Pancytopenia: Code(s): D61.818 - Other pancytopenia Status: Chronic Assessment and Plan: * Marginally low WBCs at 3.7, hemoglobin at 10.9 and platelets at 119. It should be noted that these values are still improvement over previous on comparison * No bleeding noted. (5) Gait abnormality: Code(s): R26.9 - Unspecified abnormalities of gait and mobility Status: Acute Assessment and Plan: * Patient complains of generalized weakness. PT and OT evaluate and treat ordered. * Fall precautions ordered. * Appreciate the recommendation of therapies making their recommendation upon discharge. Subjective Date/time seen: 12/26/24 14:13 Interval history: per hPI: This is a 79-year-old female patient with past medical history of uterine cancer, chronic back pain, hypertension in vitamin-D deficiency who was brought to the emergency room tonight by EMS after sustaining a ground level fall at home and being unable to get up for hours. Patient reports to me that she was attempting to get out bed yesterday morning at approximately 11:30 a.m. and she has a new bed that is automatic in the back raises up and down on it. She states that when she attempted to get out of bed it did not move the way she needed to and it slid off of platform and patient falling to the floor as a result. Patient states due to her back pain she was unable to get up and she did eventually crawled to a phone to notify 911 but this was only after she laid there are approximately 10-1/2 hours. Patient states she has no new pain since the fall. She arrived to the emergency room appearing fairly poorly kempt, foul odorous urine present and being very weak. Patient states at baseline at home she walks with either a cane or a walker, however she is too weak right now to even attempt to walk with any assistive devices. In the emergency room workup was performed that showed a pancytopenia with wbc's of 3.7, (noted this is higher than what patient normally runs), hemoglobin of 10.9 and platelets of 119. Metabolic panel is remarkable for elevated bilirubin at 2.5 and elevated AST, that of which is baseline for patient with exception of the elevated bilirubin. Patient's CK was 483. Very foul-smelling urine is reflecting 1+ leukocyte esterase, 6-10 rbc's and 21-50 wbc's without any epithelials noted. There is 3+ bacteria in the urine. Imaging was performed of left tib-fib, left knee, chest x-ray and left ankle. Final results still pending. Blood cultures x2 are pending and urine culture is also pending. EKG reviewed is showing normal sinus rhythm with first-degree AV block and left axis deviation. Patient admits she is too sick and too weak to return home independently which is how she currently lives. She is being admitted to the hospital in the current setting for continued management of her urinary tract infection, and hydration IV fluids. Patient was seen and examined at bedside. she is feeling fine, denies any chest pain, SOB,a bd drake, N/V. waiting for PT/OT evaluation Had elevated Br. Liver US pending. reviewed lab result. mildly elevated Ck. continue IVF Xray of lower ext neg for FX Review of Systems Review of Systems: All systems reviewed & are unremarkable except as noted in HPI and below Exam Const: General: comfortable and no acute distress Other: Pleasant, talkative elderly female patient lying supine at this time in no acute distress HENMT: Face/Nose/Sinus: Normal nares present Mouth: Yes dry mucous membranes Eyes: General: appearance normal, both eyes and all related structures Sclera: sclerae normal Pupils: Equal, round and reactive pupils present Neck: Neck: supple and no JVD Thyroid: thyroid normal Lymphatic: lymphadenopathy not noted Chest: Other: Nontender Resp: Effort & Inspection: normal respiratory effort Auscultation: clear to auscultation bilaterally Cardio: Rate: regular rate Rhythm: regular rhythm Heart sounds: no gallops, no murmurs and no rubs GI: Auscultation: normal bowel sounds Skin: General skin exam: normal color, no rashes or lesions noted and no erythema Wounds: no wounds Neuro: Cranial nerves: Yes Equal, round and reactive pupils present Speech: normal speech Motor exam (neuro): Abnormal motor strength present (Generalized, nonfocal weakness) Sensory Exam: normal sensation Extrem: Other: Freely and equally moves all extremities well without deficit Psych: Mental Status: mental status grossly normal Affect: normal affect Objective Data Vital Signs Vital Signs: Vital Signs - 24 hr 12/25/24 23:24 12/25/24 23:33 12/26/24 03:05 Temperature 98.3 F 98.3 F Pulse Rate 92 92 79 Respiratory Rate 12 18 17 Blood Pressure 145/73 H 145/73 H 169/62 H Pulse Oximetry 100 100 100 Oxygen Delivery Room Air 12/26/24 03:47 Temperature 97.5 F L Pulse Rate 74 Respiratory Rate 16 Blood Pressure 143/58 H Pulse Oximetry 100 Oxygen Delivery Intake/Output Intake/Output: Intake & Output 12/23/24 12/24/24 12/25/24 12/26/24 23:59 23:59 23:59 23:59 Intake Total 1290 Balance 1290 Meds/Results Medications: Active Medications Generic Name Dose Route Start Last Admin Trade Name Freq PRN Reason Stop Dose Admin Acetaminophen 650 mg 12/26/24 08:42 12/26/24 11:34 Acetaminophen 325 Mg Tablet PO 650 mg Q6H PRN Administration Mild Pain (1-3) or Fever Ceftriaxone Sodium 1 gm/ 50 mls @ 100 mls/hr 12/27/24 01:00 Sodium Chloride IVPB Q24H ESTEBAN Sodium Chloride 1,000 mls @ 100 mls/hr 12/26/24 04:20 12/26/24 04:47 Normal Saline Iv IV CONT 100 mls/hr .Q10H ESTEBAN Administration Radiology Results: ITS Impressions Lumbar Spine CT 12/26/24 05:37 Impression: Chronic compression fractures of T11 and L1. Stable possible minimal loss of height of the superior endplate region of T12. Degenerative spondylitic changes, as above. Ankle X-Ray 12/26/24 05:41 Impression: Unremarkable left ankle. Chest X-Ray 12/26/24 05:41 Impression: Clear lungs. Knee X-Ray 12/26/24 05:42 Impression: Minimal degenerative change of the knee. Tibia/Fibula X-Ray 12/26/24 05:42 Impression: Unremarkable left tib-fib radiographs. Labs Labs: Laboratory Results - last 24 hr 12/26/24 12/26/24 00:06 01:05 WBC 3.7 L RBC 4.56 Hgb 10.9 L Hct 36.5 L MCV 80.0 MCH 23.9 L MCHC 29.9 L RDW 20.5 H Plt Count 119 L MPV 10.9 H Immature Gran % (Auto) 0.5 Neut % (Auto) 49.9 Lymph % (Auto) 11.8 L [place] % (Auto) 37.0 H Eos % (Auto) 0.5 Baso % (Auto) 0.3 Lymph # (Auto) 0.44 L [place] # (Auto) 1.4 H Eos # (Auto) 0.0 Baso # (Auto) 0.0 Abs Immat Gran (auto) 0.02 Absolute Neuts (auto) 1.9 Absolute Nucleated RBC 0.000 Band Neutrophils % Not Reportable Nucleated RBC % 0.0 Platelet Estimate Adequate % Immature Plt Fraction 3.2 Hypochromasia 1+ Anisocytosis 1+ Microcytosis 1+ Ovalocytes Occasional Schistocytes None seen Sodium 135 L Potassium 3.9 Chloride 106 Carbon Dioxide 23 Anion Gap 6 BUN 9 D Creatinine 0.64 L Estim Creat Clear Calc 85 Estimated GFR > 60 Glucose 109 Lactic Acid 1.6 Calcium 8.6 Magnesium 1.7 Total Bilirubin 2.5 H AST 48 H ALT 27 Alkaline Phosphatase 103 Total Creatine Kinase 483 H Total Protein 7.0 Albumin 3.4 L Urine Color Yellow Urine Appearance Clear Urine pH 7.5 Ur Specific [place] 1.014 Urine Protein Negative Urine Glucose (UA) Negative Urine Ketones Negative Ur Blood (Man) Trace Urine Nitrate Negative Urine Bilirubin Negative Urine Urobilinogen 1.0 Add Ur Microanalysis Reviewed Leukocyte Esterase Rfl 1+ H Urine RBC 6-10 H Urine WBC 21-50 H Ur Squamous Epith Cells None seen Urine Bacteria 3+ H Urine Casts 0-2 Urine Mucus Present Quality VTE Prophylaxis VTE prophylaxis: mechanical ordered
[2024-12-26 20:00] VITALS: PULSE 76; RESP 24; O2SAT 100
[2024-12-26 20:46] VITALS: BP 157/53; PULSE 76; RESP 24; TEMP 36.6; O2SAT 100
[2024-12-27] MEDS: SODIUM CHLORIDE 0.9% IV 1,000 ML 100 ML IV CONT ×2 (05:25→18:10)
[2024-12-27 05:48] VITALS: BP 156/69; PULSE 69; RESP 14; TEMP 36.4; O2SAT 100
[2024-12-27 06:34] LABS: Hematocrit 32.7 % (37.0-47.0); Hemoglobin 9.3 g/dL (12.0-15.0); Immature Platelet Fraction Pct 4.5 % (0.9-11.2); Mean Corpuscular HGB Conc 28.4 g/dl (32-36); Mean Corpuscular Hemoglobin 24.4 pg (26-34); Mean Corpuscular Volume 85.8 fl (80-100); Platelet Count Result 104 k/mm3 (150-375); Red Blood Count 3.81 M/mm3 (4.2-5.4); White Blood Count 2.6 K/mm3 (4.5-10.0)
[2024-12-27 06:56] LABS: Alanine Aminotransferase 24 U/L (6-35); Albumin Level 2.7 g/dL (3.5-5.1); Alkaline Phosphatase 88 U/L (38-126); Anion Gap 3 mmol/L (4-12); Aspartate Amino Transferase 46 U/L (14-36); Bilirubin,Total 1.4 mg/dL (0.2-1.3); Blood Urea Nitrogen 10 mg/dL (7-17); Calcium 8.0 mg/dL (8.4-10.2); Carbon Dioxide 22 mmol/L (22-30); Chloride 109 mmol/L (98-107); Estimated CRCL calculation 100 ml/min; Estimated Glomerular Filt Rate > 60; Glucose 110 mg/dL (65-110); Potassium 4.2 mmol/L (3.4-5.0); Sodium 134 mmol/L (137-145); Total Protein 5.9 g/dL (6.3-8.2)
[2024-12-27] MEDS: CHOLECALCIFEROL (VITAMIN D3) 125 MCG (5,000 UNITS) TABLET PO (08:39)
--- NOTE | 2024-12-27 08:46 | P.PNIM_ITS ---
Progress Note: A&P Assessment and Plan (1) Accident due to mechanical fall without injury: Code(s): W19.XXXA - Unspecified fall, initial encounter Status: Acute Assessment and Plan: * Patient reportedly fell attempting to get out of bed. * Imaging obtained left tib-fib, left knee, left ankle and chest neg for acute abnormality * Fall precautions * PT and OT evaluation to determine safety for return to independently. (2) Dehydration: Code(s): E86.0 - Dehydration Status: Acute Assessment and Plan: * As evidenced by elevated CK * Continue IV fluid hydration of normal saline . * Heart healthy diet (3) UTI (urinary tract infection): Qualifiers: Hematuria presence: without hematuria Urinary tract infection type: acute cystitis Qualified Code(s): N30.00 - Acute cystitis without hematuria Code(s): N39.0 - Urinary tract infection, site not specified Status: Acute Assessment and Plan: * As noted per recent urinalysis. * Patient is not currently meeting sepsis criteria. * Previous microbiology is were reviewed and they show that patient has grown out E coli multiple times from her urine. Blood cultures x2 currently pending. (4) Pancytopenia: Code(s): D61.818 - Other pancytopenia Status: Chronic Assessment and Plan: * Marginally low WBCs at 3.7, hemoglobin at 10.9 and platelets at 119. It should be noted that these values are still improvement over previous on comparison * No bleeding noted. (5) Gait abnormality: Code(s): R26.9 - Unspecified abnormalities of gait and mobility Status: Acute Assessment and Plan: * Patient complains of generalized weakness. PT and OT evaluate and treat ordered. * Fall precautions ordered. * Appreciate the recommendation of therapies making their recommendation upon discharge. (6) Elevated bilirubin: Code(s): R17 - Unspecified jaundice Status: Acute Assessment and Plan: Right upper quadrant ultrasound shows cholelithiasis with dilated bile duct Down trending bilirubin Follow-up as an outpatient with GI Subjective Date/time seen: 12/27/24 08:46 Interval history: per hPI: This is a 79-year-old female patient with past medical history of uterine cancer, chronic back pain, hypertension in vitamin-D deficiency who was brought to the emergency room tonight by EMS after sustaining a ground level fall at home and being unable to get up for hours. Patient reports to me that she was attempting to get out bed yesterday morning at approximately 11:30 a.m. and she has a new bed that is automatic in the back raises up and down on it. She states that when she attempted to get out of bed it did not move the way she needed to and it slid off of platform and patient falling to the floor as a result. Patient states due to her back pain she was unable to get up and she did eventually crawled to a phone to notify 911 but this was only after she laid there are approximately 10-1/2 hours. Patient states she has no new pain since the fall. She arrived to the emergency room appearing fairly poorly kempt, foul odorous urine present and being very weak. Patient states at baseline at home she walks with either a cane or a walker, however she is too weak right now to even attempt to walk with any assistive devices. In the emergency room workup was performed that showed a pancytopenia with wbc's of 3.7, (noted this is higher than what patient normally runs), hemoglobin of 10.9 and platelets of 119. Metabolic panel is remarkable for elevated bilirubin at 2.5 and elevated AST, that of which is baseline for patient with exception of the elevated bilirubin. Patient's CK was 483. Very foul-smelling urine is reflecting 1+ leukocyte esterase, 6-10 rbc's and 21-50 wbc's without any epithelials noted. There is 3+ bacteria in the urine. Imaging was performed of left tib-fib, left knee, chest x-ray and left ankle. Final results still pending. Blood cultures x2 are pending and urine culture is also pending. EKG reviewed is showing normal sinus rhythm with first-degree AV block and left axis deviation. Patient admits she is too sick and too weak to return home independently which is how she currently lives. She is being admitted to the hospital in the current setting for continued management of her urinary tract infection, and hydration IV fluids. Patient was seen and examined at bedside. she is feeling fine, denies any chest pain, SOB,a bd drake, N/V. waiting for PT/OT evaluation Had elevated Br. Liver US pending. reviewed lab result. mildly elevated Ck. continue IVF Xray of lower ext neg for FX 12/27: Patient underwent right upper quadrant ultrasound shows cholelithiasis with a dilated common bile duct. X-ray of the left tibia and fibula shows no fracture. Review of Systems Review of Systems: All systems reviewed & are unremarkable except as noted in HPI and below Exam Const: General: comfortable and no acute distress Other: Pleasant, talkative elderly female patient lying supine at this time in no acute distress HENMT: Face/Nose/Sinus: Normal nares present Mouth: Yes dry mucous membranes Eyes: General: appearance normal, both eyes and all related structures Sclera: sclerae normal Pupils: Equal, round and reactive pupils present Neck: Neck: supple and no JVD Thyroid: thyroid normal Lymphatic: lymphadenopathy not noted Chest: Other: Nontender Resp: Effort & Inspection: normal respiratory effort Auscultation: clear to auscultation bilaterally Cardio: Rate: regular rate Rhythm: regular rhythm Heart sounds: no gallops, no murmurs and no rubs GI: Auscultation: normal bowel sounds Skin: General skin exam: normal color, no rashes or lesions noted and no erythema Wounds: no wounds Neuro: Cranial nerves: Yes Equal, round and reactive pupils present Speech: normal speech Motor exam (neuro): Abnormal motor strength present (Generalized, nonfocal weakness) Sensory Exam: normal sensation Extrem: Other: Freely and equally moves all extremities well without deficit Psych: Mental Status: mental status grossly normal Affect: normal affect Objective Data Vital Signs Vital Signs: Vital Signs - 24 hr 12/26/24 09:30 12/26/24 14:00 12/26/24 20:00 Temperature 98.6 F Pulse Rate 69 76 Respiratory Rate 18 24 H Blood Pressure 139/61 Pulse Oximetry 100 100 Oxygen Delivery Room Air Room Air 12/26/24 20:46 12/27/24 05:48 Temperature 97.9 F 97.5 F L Pulse Rate 76 69 Respiratory Rate 24 H 14 Blood Pressure 157/53 H 156/69 H Pulse Oximetry 100 100 Oxygen Delivery Intake/Output Intake/Output: Intake & Output 12/24/24 12/25/24 12/26/24 12/27/24 23:59 23:59 23:59 23:59 Intake Total 2540 1526.7 Output Total 400 550 Balance 2140 976.7 Meds/Results Medications: Active Medications Generic Name Dose Route Start Last Admin Trade Name Freq PRN Reason Stop Dose Admin Acetaminophen 650 mg 12/26/24 08:42 12/26/24 20:39 Acetaminophen 325 Mg Tablet PO 650 mg Q6H PRN Administration Mild Pain (1-3) or Fever Sodium Chloride 1,000 mls @ 100 mls/hr 12/26/24 04:20 12/27/24 05:25 Normal Saline Iv IV CONT 100 mls/hr .Q10H ESTEBAN Administration Ceftriaxone Sodium 1 gm/ 50 mls @ 100 mls/hr 12/26/24 21:00 12/26/24 21:09 Sodium Chloride IVPB Infused HS ESTEBAN Infusion Vitamin D 125 mcg 12/27/24 09:00 12/27/24 08:39 Cholecalciferol (Vitamin D3) 125 Mcg (5,000 Units) Tablet PO 125 mcg DAILY ESTEBAN Administration Radiology Results: ITS Impressions Lumbar Spine CT 12/26/24 05:37 Impression: Chronic compression fractures of T11 and L1. Stable possible minimal loss of height of the superior endplate region of T12. Degenerative spondylitic changes, as above. Ankle X-Ray 12/26/24 05:41 Impression: Unremarkable left ankle. Chest X-Ray 12/26/24 05:41 Impression: Clear lungs. Knee X-Ray 12/26/24 05:42 Impression: Minimal degenerative change of the knee. Tibia/Fibula X-Ray 12/26/24 05:42 Impression: Unremarkable left tib-fib radiographs. Abdomen Ultrasound 12/26/24 19:17 IMPRESSION: 1: Cholelithiasis with dilated common bile duct. Consider cholecystitis in the appropriate clinical setting. Labs Labs: Laboratory Results - last 24 hr 12/27/24 05:56 WBC 2.6 L RBC 3.81 L Hgb 9.3 L Hct 32.7 L MCV 85.8 D MCH 24.4 L MCHC 28.4 L RDW 21.2 H Plt Count 104 L MPV 11.4 H % Immature Plt Fraction 4.5 Sodium 134 L Potassium 4.2 Chloride 109 H Carbon Dioxide 22 Anion Gap 3 L BUN 10 Creatinine 0.53 L Estim Creat Clear Calc 100 Estimated GFR > 60 Glucose 110 Calcium 8.0 L Total Bilirubin 1.4 H AST 46 H ALT 24 Alkaline Phosphatase 88 Total Protein 5.9 L Albumin 2.7 L Quality VTE Prophylaxis VTE prophylaxis: mechanical ordered Hospitalist [facility] Advance Care Plan I have confirmed that the patient's Advanced Care Plan is present, code status i s documented, or surrogate decision maker is listed in patient medical record.: Yes Medication Reconciliation I have utilized all available resources to obtain, update and review the patients current medications (includes all prescriptions, OTC, herbals, cannabis, and nutritional supplements).: Yes
[2024-12-27] MEDS: ACETAMINOPHEN 325 MG TABLET 650 MG PO ×2 (09:14→17:55)
[2024-12-27 14:00] VITALS: BP 136/59; PULSE 75; RESP 20; TEMP 36.4; O2SAT 100
[2024-12-27] MEDS: cefTRIAXone 1 GM in SODIUM CHLORIDE 0.9% IV 50 ML 100 ML IVPB (21:23)
[2024-12-27 21:44] VITALS: BP 136/67; PULSE 67; RESP 14; TEMP 36.4; O2SAT 100
[2024-12-27 22:13] VITALS: PULSE 70; RESP 20; O2SAT 97
[2024-12-28 05:44] VITALS: BP 150/63; PULSE 64; RESP 16; TEMP 36.7; O2SAT 100
[2024-12-28 05:59] LABS: Hematocrit 32.6 % (37.0-47.0); Hemoglobin 9.4 g/dL (12.0-15.0); Immature Platelet Fraction Pct 4.2 % (0.9-11.2); Mean Corpuscular HGB Conc 28.8 g/dl (32-36); Mean Corpuscular Hemoglobin 24.1 pg (26-34); Mean Corpuscular Volume 83.6 fl (80-100); Platelet Count Result 101 k/mm3 (150-375); Red Blood Count 3.90 M/mm3 (4.2-5.4); White Blood Count 2.8 K/mm3 (4.5-10.0)
[2024-12-28 06:18] LABS: Alanine Aminotransferase 28 U/L (6-35); Albumin Level 2.9 g/dL (3.5-5.1); Alkaline Phosphatase 95 U/L (38-126); Anion Gap 6 mmol/L (4-12); Aspartate Amino Transferase 49 U/L (14-36); Bilirubin,Total 1.0 mg/dL (0.2-1.3); Blood Urea Nitrogen 10 mg/dL (7-17); Calcium 8.2 mg/dL (8.4-10.2); Carbon Dioxide 22 mmol/L (22-30); Chloride 110 mmol/L (98-107); Estimated CRCL calculation 100 ml/min; Estimated Glomerular Filt Rate > 60; Glucose 103 mg/dL (65-110); Potassium 4.1 mmol/L (3.4-5.0); Sodium 138 mmol/L (137-145); Total Protein 6.4 g/dL (6.3-8.2)
[2024-12-28] MEDS: CHOLECALCIFEROL (VITAMIN D3) 125 MCG (5,000 UNITS) TABLET PO (08:51)
[2024-12-28] MEDS: ACETAMINOPHEN 325 MG TABLET 650 MG PO ×2 (08:51→21:46)
--- NOTE | 2024-12-28 08:56 | P.PNIM_ITS ---
Progress Note: A&P Assessment and Plan (1) Accident due to mechanical fall without injury: Code(s): W19.XXXA - Unspecified fall, initial encounter Status: Acute Assessment and Plan: * Patient reportedly fell attempting to get out of bed. * Imaging obtained left tib-fib, left knee, left ankle and chest neg for acute abnormality * Fall precautions * PT and OT evaluation to determine safety for return to independently. (2) Dehydration: Code(s): E86.0 - Dehydration Status: Acute Assessment and Plan: * As evidenced by elevated CK * Continue IV fluid hydration of normal saline . * Heart healthy diet (3) UTI (urinary tract infection): Qualifiers: Hematuria presence: without hematuria Urinary tract infection type: acute cystitis Qualified Code(s): N30.00 - Acute cystitis without hematuria Code(s): N39.0 - Urinary tract infection, site not specified Status: Acute Assessment and Plan: * As noted per recent urinalysis. * Patient is not currently meeting sepsis criteria. * Previous microbiology is were reviewed and they show that patient has grown out E coli multiple times from her urine. Blood cultures x2 currently pending. (4) Pancytopenia: Code(s): D61.818 - Other pancytopenia Status: Chronic Assessment and Plan: * Marginally low WBCs at 3.7, hemoglobin at 10.9 and platelets at 119. It should be noted that these values are still improvement over previous on comparison * No bleeding noted. (5) Gait abnormality: Code(s): R26.9 - Unspecified abnormalities of gait and mobility Status: Acute Assessment and Plan: * Patient complains of generalized weakness. PT and OT evaluate and treat ordered. * Fall precautions ordered. * Appreciate the recommendation of therapies making their recommendation upon discharge. (6) Elevated bilirubin: Code(s): R17 - Unspecified jaundice Status: Acute Assessment and Plan: Right upper quadrant ultrasound shows cholelithiasis with dilated bile duct Down trending bilirubin Ordered MRCP Consult GI if any abnormal finding Subjective Date/time seen: 12/28/24 08:56 Interval history: Per HPI: This is a 79-year-old female patient with past medical history of uterine cancer, chronic back pain, hypertension in vitamin-D deficiency who was brought to the emergency room tonight by EMS after sustaining a ground level fall at home and being unable to get up for hours. Patient reports to me that she was attempting to get out bed yesterday morning at approximately 11:30 a.m. and she has a new bed that is automatic in the back raises up and down on it. She states that when she attempted to get out of bed it did not move the way she needed to and it slid off of platform and patient falling to the floor as a result. Patient states due to her back pain she was unable to get up and she did eventually crawled to a phone to notify 911 but this was only after she laid there are approximately 10-1/2 hours. Patient states she has no new pain since the fall. She arrived to the emergency room appearing fairly poorly kempt, foul odorous urine present and being very weak. Patient states at baseline at home she walks with either a cane or a walker, however she is too weak right now to even attempt to walk with any assistive devices. In the emergency room workup was performed that showed a pancytopenia with wbc's of 3.7, (noted this is higher than what patient normally runs), hemoglobin of 10.9 and platelets of 119. Metabolic panel is remarkable for elevated bilirubin at 2.5 and elevated AST, that of which is baseline for patient with exception of the elevated bilirubin. Patient's CK was 483. Very foul-smelling urine is reflecting 1+ leukocyte esterase, 6-10 rbc's and 21-50 wbc's without any epithelials noted. There is 3+ bacteria in the urine. Imaging was performed of left tib-fib, left knee, chest x-ray and left ankle. Final results still pending. Blood cultures x2 are pending and urine culture is also pending. EKG reviewed is showing normal sinus rhythm with first-degree AV block and left axis deviation. Patient admits she is too sick and too weak to return home independently which is how she currently lives. She is being admitted to the hospital in the current setting for continued management of her urinary tract infection, and hydration IV fluids. Patient was seen and examined at bedside. she is feeling fine, denies any chest pain, SOB,a bd drake, N/V. waiting for PT/OT evaluationHad elevated Br. Liver US pending.reviewed lab result. mildly elevated Ck.continue IVF.Xray of lower ext neg for FX 12/27: Patient underwent right upper quadrant ultrasound shows cholelithiasis with a dilated common bile duct. X-ray of the left tibia and fibula shows no fracture. 12/28: Discontinue fluids. LFTs getting better. Ordered MRCP due to bile duct dilation with choledocholithiasis. No evidence of cholecystitis. Needs placement Review of Systems Review of Systems: All systems reviewed & are unremarkable except as noted in HPI and below Exam Const: General: comfortable and no acute distress Other: Pleasant, talkative elderly female patient lying supine at this time in no acute distress HENMT: Face/Nose/Sinus: Normal nares present Mouth: Yes dry mucous membranes Eyes: General: appearance normal, both eyes and all related structures Sclera: sclerae normal Pupils: Equal, round and reactive pupils present Neck: Neck: supple and no JVD Thyroid: thyroid normal Lymphatic: lymphadenopathy not noted Chest: Other: Nontender Resp: Effort & Inspection: normal respiratory effort Auscultation: clear to auscultation bilaterally Cardio: Rate: regular rate Rhythm: regular rhythm Heart sounds: no gallops, no murmurs and no rubs GI: Auscultation: normal bowel sounds Skin: General skin exam: normal color, no rashes or lesions noted and no erythema Wounds: no wounds Neuro: Cranial nerves: Yes Equal, round and reactive pupils present Speech: normal speech Motor exam (neuro): Abnormal motor strength present (Generalized, nonfocal weakness) Sensory Exam: normal sensation Extrem: Other: Freely and equally moves all extremities well without deficit Psych: Mental Status: mental status grossly normal Affect: normal affect Objective Data Vital Signs Vital Signs: Vital Signs - 24 hr 12/27/24 13:56 12/27/24 14:00 12/27/24 15:54 Temperature 97.5 F L Pulse Rate 75 Respiratory Rate 20 Blood Pressure 136/59 L Pulse Oximetry 100 Oxygen Delivery Room Air Room Air Fraction of Inspired Oxygen 12/27/24 20:00 12/27/24 21:44 12/27/24 22:13 Temperature 97.5 F L Pulse Rate 67 70 Respiratory Rate 14 20 Blood Pressure 136/67 Pulse Oximetry 100 97 Oxygen Delivery Room Air Room Air Fraction of Inspired Oxygen 21 12/28/24 05:44 Temperature 98.0 F Pulse Rate 64 Respiratory Rate 16 Blood Pressure 150/63 H Pulse Oximetry 100 Oxygen Delivery Fraction of Inspired Oxygen Intake/Output Intake/Output: Intake & Output 12/25/24 12/26/24 12/27/24 12/28/24 23:59 23:59 23:59 23:59 Intake Total 2540 3356.7 1300 Output Total 400 1100 1200 Balance 2140 2256.7 100 Meds/Results Medications: Active Medications Generic Name Dose Route Start Last Admin Trade Name Daytonq PRN Reason Stop Dose Admin Acetaminophen 650 mg 12/26/24 08:42 12/28/24 08:51 Acetaminophen 325 Mg Tablet PO 650 mg Q6H PRN Administration Mild Pain (1-3) or Fever Ceftriaxone Sodium 1 gm/ 50 mls @ 100 mls/hr 12/26/24 21:00 12/27/24 21:53 Sodium Chloride IVPB Infused HS ESTEBAN Infusion Vitamin D 125 mcg 12/27/24 09:00 12/28/24 08:51 Cholecalciferol (Vitamin D3) 125 Mcg (5,000 Units) Tablet PO 125 mcg DAILY ESTEBAN Administration Radiology Results: ITS Impressions Lumbar Spine CT 12/26/24 05:37 Impression: Chronic compression fractures of T11 and L1. Stable possible minimal loss of height of the superior endplate region of T12. Degenerative spondylitic changes, as above. Ankle X-Ray 12/26/24 05:41 Impression: Unremarkable left ankle. Chest X-Ray 12/26/24 05:41 Impression: Clear lungs. Knee X-Ray 12/26/24 05:42 Impression: Minimal degenerative change of the knee. Tibia/Fibula X-Ray 12/26/24 05:42 Impression: Unremarkable left tib-fib radiographs. Abdomen Ultrasound 12/26/24 19:17 IMPRESSION: 1: Cholelithiasis with dilated common bile duct. Consider cholecystitis in the appropriate clinical setting. Labs Labs: Laboratory Results - last 24 hr 12/28/24 05:25 WBC 2.8 L RBC 3.90 L Hgb 9.4 L Hct 32.6 L MCV 83.6 MCH 24.1 L MCHC 28.8 L RDW 21.3 H Plt Count 101 L MPV 10.9 H % Immature Plt Fraction 4.2 Sodium 138 Potassium 4.1 Chloride 110 H Carbon Dioxide 22 Anion Gap 6 BUN 10 Creatinine 0.53 L Estim Creat Clear Calc 100 Estimated GFR > 60 Glucose 103 Calcium 8.2 L Total Bilirubin 1.0 AST 49 H ALT 28 Alkaline Phosphatase 95 Total Protein 6.4 Albumin 2.9 L Quality VTE Prophylaxis VTE prophylaxis: mechanical ordered Hospitalist [facility] Advance Care Plan I have confirmed that the patient's Advanced Care Plan is present, code status is documented, or surrogate decision maker is listed in patient medical record.: Yes Medication Reconciliation I have utilized all available resources to obtain, update and review the patients current medications (includes all prescriptions, OTC, herbals, cannabis, and nutritional supplements).: Yes
[2024-12-28 09:34] LABS: Creatine Kinase 227 U/L (30-135)
[2024-12-28 14:00] VITALS: BP 151/76; PULSE 65; RESP 18; TEMP 36.8; O2SAT 100
[2024-12-28 21:00] VITALS: O2SAT 100
[2024-12-28] MEDS: cefTRIAXone 1 GM in SODIUM CHLORIDE 0.9% IV 50 ML 100 ML IVPB (21:09)
[2024-12-28 21:39] VITALS: BP 141/53; PULSE 69; RESP 16; TEMP 36.4; O2SAT 100
[2024-12-29 05:56] VITALS: BP 145/47; PULSE 68; RESP 13; TEMP 36.6; O2SAT 100
[2024-12-29 06:03] LABS: Alanine Aminotransferase 34 U/L (6-35); Albumin Level 3.0 g/dL (3.5-5.1); Alkaline Phosphatase 103 U/L (38-126); Anion Gap 4 mmol/L (4-12); Aspartate Amino Transferase 59 U/L (14-36); Bilirubin,Total 0.9 mg/dL (0.2-1.3); Blood Urea Nitrogen 12 mg/dL (7-17); Calcium 8.6 mg/dL (8.4-10.2); Carbon Dioxide 26 mmol/L (22-30); Chloride 108 mmol/L (98-107); Estimated CRCL calculation 92 ml/min; Estimated Glomerular Filt Rate > 60; Glucose 120 mg/dL (65-110); Potassium 4.2 mmol/L (3.4-5.0); Sodium 138 mmol/L (137-145); Total Protein 6.5 g/dL (6.3-8.2)
[2024-12-29 06:05] LABS: Hematocrit 35.0 % (37.0-47.0); Hemoglobin 10.1 g/dL (12.0-15.0); Immature Platelet Fraction Pct 3.9 % (0.9-11.2); Mean Corpuscular HGB Conc 28.9 g/dl (32-36); Mean Corpuscular Hemoglobin 24.2 pg (26-34); Mean Corpuscular Volume 83.9 fl (80-100); Platelet Count Result 97 k/mm3 (150-375); Red Blood Count 4.17 M/mm3 (4.2-5.4); White Blood Count 3.5 K/mm3 (4.5-10.0)
[2024-12-29] MEDS: CHOLECALCIFEROL (VITAMIN D3) 125 MCG (5,000 UNITS) TABLET PO (12:21)
[2024-12-29 14:00] VITALS: BP 183/71; PULSE 73; RESP 18; TEMP 36.6; O2SAT 100
--- NOTE | 2024-12-29 14:37 | P.PNIM_ITS ---
Progress Note: A&P Assessment and Plan (1) Accident due to mechanical fall without injury: Code(s): W19.XXXA - Unspecified fall, initial encounter Status: Acute Assessment and Plan: * Patient reportedly fell attempting to get out of bed. * Imaging obtained left tib-fib, left knee, left ankle and chest neg for acute abnormality * Fall precautions * PT and OT evaluation to determine safety for return to independently. (2) Dehydration: Code(s): E86.0 - Dehydration Status: Acute Assessment and Plan: * As evidenced by elevated CK * Continue IV fluid hydration of normal saline . * Heart healthy diet (3) UTI (urinary tract infection): Qualifiers: Hematuria presence: without hematuria Urinary tract infection type: acute cystitis Qualified Code(s): N30.00 - Acute cystitis without hematuria Code(s): N39.0 - Urinary tract infection, site not specified Status: Acute Assessment and Plan: * As noted per recent urinalysis. However asymptomatic * Previous microbiology is were reviewed and they show that patient has grown out E coli multiple times from her urine. Blood cultures x2 currently pending. Since asymptomatic. IV antibiotics (4) Pancytopenia: Code(s): D61.818 - Other pancytopenia Status: Chronic Assessment and Plan: * Marginally low WBCs at 3.7, hemoglobin at 10.9 and platelets at 119. It should be noted that these values are still improvement over previous on comparison * No bleeding noted. (5) Gait abnormality: Code(s): R26.9 - Unspecified abnormalities of gait and mobility Status: Acute Assessment and Plan: * Patient complains of generalized weakness. PT and OT evaluate and treat ordered. * Fall precautions ordered. * Appreciate the recommendation of therapies making their recommendation upon discharge. (6) Elevated bilirubin: Code(s): R17 - Unspecified jaundice Status: Acute Assessment and Plan: Right upper quadrant ultrasound shows cholelithiasis with dilated bile duct Down trending bilirubin Ordered MRCP however could not tolerate Will re-attempt with some pain control in a.m. if not will do a CT abdomen pelvis Consult GI if any abnormal finding Plan Chronic compression fractures of T11 and L1 diagnosed February 2024 History of endometrial carcinoma status post hysterectomy 2022 she underwent radiation treatment subsequently Subjective Date/time seen: 12/29/24 14:37 Interval history: Patient could not tolerate laying flat for MRCP. Left leg hematoma getting smaller were still is quite sore. No chest pain or shortness of breath no nausea vomiting abdominal pain. Review of Systems Review of Systems: All systems reviewed & are unremarkable except as noted in HPI and below Exam Narrative: GENERAL: Alert and oriented x3 not in acute distress HEAD: Normocephalic, atraumatic. EYES: PERRLA and EOMI. BACK: No midline thoracic spinous tenderness, crepitus step-offs or deformities. CHEST: Clear to auscultation. No respiratory distress. No tenderness to chest wall HEART: Regular rate and rhythm. No murmur heard. Normal peripheral pulses. ABDOMEN: Soft, nontender, nondistended, normal active bowel sounds. EXTREMITIES: Hematoma with overlying ecchymosis noted to the left tibia with tenderness. Mild tenderness to the left knee and medial malleolus. no obvious deformity. DP pulse 2 +. Sensation intact. No tenderness remainder of extremities. Full active and passive range of motion of BUE and BLE. SKIN: Warm, dry, no rash. NEURO: No focal deficits. Alert and oriented x3 Objective Data Vital Signs Vital Signs: Vital Signs - 24 hr 12/28/24 20:00 12/28/24 21:00 12/28/24 21:39 Temperature 97.5 F L Pulse Rate 69 Respiratory Rate 16 Blood Pressure 141/53 H Pulse Oximetry 100 100 Oxygen Delivery Room Air Room Air Fraction of Inspired Oxygen 21 12/29/24 05:56 12/29/24 11:58 12/29/24 14:00 Temperature 97.8 F 97.9 F Pulse Rate 68 73 Respiratory Rate 13 18 Blood Pressure 145/47 H 183/71 H Pulse Oximetry 100 100 Oxygen Delivery Room Air Fraction of Inspired Oxygen Intake/Output Intake/Output: Intake & Output 12/26/24 12/27/24 12/28/24 12/29/24 23:59 23:59 23:59 23:59 Intake Total 2540 3356.7 2620 440 Output Total 400 1100 2250 1650 Balance 2140 2256.7 370 -1210 Meds/Results Medications: Active Medications Generic Name Dose Route Start Last Admin Trade Name Freq PRN Reason Stop Dose Admin Acetaminophen 650 mg 12/26/24 08:42 12/28/24 21:46 Acetaminophen 325 Mg Tablet PO 650 mg Q6H PRN Administration Mild Pain (1-3) or Fever Vitamin D 125 mcg 12/27/24 09:00 12/29/24 12:21 Cholecalciferol (Vitamin D3) 125 Mcg (5,000 Units) Tablet PO 125 mcg DAILY ESTEBAN Administration Radiology Results: ITS Impressions Lumbar Spine CT 12/26/24 05:37 Impression: Chronic compression fractures of T11 and L1. Stable possible minimal loss of height of the superior endplate region of T12. Degenerative spondylitic changes, as above. Ankle X-Ray 12/26/24 05:41 Impression: Unremarkable left ankle. Chest X-Ray 12/26/24 05:41 Impression: Clear lungs. Knee X-Ray 12/26/24 05:42 Impression: Minimal degenerative change of the knee. Tibia/Fibula X-Ray 12/26/24 05:42 Impression: Unremarkable left tib-fib radiographs. Abdomen Ultrasound 12/26/24 19:17 IMPRESSION: 1: Cholelithiasis with dilated common bile duct. Consider cholecystitis in the appropriate clinical setting. Labs Labs: Laboratory Results - last 24 hr 12/29/24 05:31 WBC 3.5 L RBC 4.17 L Hgb 10.1 L Hct 35.0 L MCV 83.9 MCH 24.2 L MCHC 28.9 L RDW 21.7 H Plt Count 97 L MPV 10.7 H % Immature Plt Fraction 3.9 Sodium 138 Potassium 4.2 Chloride 108 H Carbon Dioxide 26 Anion Gap 4 BUN 12 Creatinine 0.58 L Estim Creat Clear Calc 92 Estimated GFR > 60 Glucose 120 H Calcium 8.6 Total Bilirubin 0.9 AST 59 H ALT 34 Alkaline Phosphatase 103 Total Protein 6.5 Albumin 3.0 L
[2024-12-29] MEDS: ACETAMINOPHEN 325 MG TABLET 650 MG PO (15:53)
[2024-12-29 16:00] VITALS: BP 145/66
[2024-12-29 21:23] VITALS: PULSE 73; RESP 20; O2SAT 95
[2024-12-29 21:45] VITALS: BP 104/80; PULSE 70; RESP 16; TEMP 36.1; O2SAT 100
[2024-12-30 06:00] VITALS: BP 145/53; PULSE 63; RESP 20; TEMP 36.1; O2SAT 100
[2024-12-30 06:20] LABS: Hematocrit 33.3 % (37.0-47.0); Hemoglobin 9.8 g/dL (12.0-15.0); Immature Platelet Fraction Pct 3.8 % (0.9-11.2); Mean Corpuscular HGB Conc 29.4 g/dl (32-36); Mean Corpuscular Hemoglobin 24.4 pg (26-34); Mean Corpuscular Volume 82.8 fl (80-100); Platelet Count Result 100 k/mm3 (150-375); Red Blood Count 4.02 M/mm3 (4.2-5.4)
[2024-12-30 06:52] LABS: Alanine Aminotransferase 33 U/L (6-35); Albumin Level 3.1 g/dL (3.5-5.1); Alkaline Phosphatase 107 U/L (38-126); Anion Gap 5 mmol/L (4-12); Aspartate Amino Transferase 51 U/L (14-36); Bilirubin,Total 1.0 mg/dL (0.2-1.3); Blood Urea Nitrogen 11 mg/dL (7-17); Calcium 8.7 mg/dL (8.4-10.2); Carbon Dioxide 26 mmol/L (22-30); Chloride 106 mmol/L (98-107); Estimated CRCL calculation 97 ml/min; Estimated Glomerular Filt Rate > 60; Glucose 112 mg/dL (65-110); Magnesium 1.9 mg/dL (1.6-2.3); Potassium 4.1 mmol/L (3.4-5.0); Sodium 137 mmol/L (137-145); Total Protein 6.6 g/dL (6.3-8.2)
[2024-12-30 06:53] LABS: Band Neutrophils Percent 0 % (0-6); Neutrophils Absolute Manual 1.08 K/mm3 (1.3-6.7); Neutrophils Percent Manual 47 % (46-73); Total Cells Counted 100
[2024-12-30 06:54] LABS: Anisocytosis 1+; Eosinophils Absolute Manual 0.02 K/mm3 (0.02-0.50); Eosinophils Percent Manual 1 % (0-4); Hypochromasia 1+; Lymphocytes Absolute Manual 0.71 K/mm3 (1.1-4.5); Lymphocytes Percent Manual 31 % (18-44); Monocytes Absolute Manual 0.48 K/mm3 (0.1-0.90); Monocytes Percent Manual 21 % (3-9); Ovalocytes 1+; Schistocytes None Seen; Smudge Cells FEW
[2024-12-30 06:55] LABS: White Blood Count 2.3 K/mm3 (4.5-10.0)
[2024-12-30 08:00] VITALS: O2SAT 100
[2024-12-30] MEDS: MORPHINE SULFATE (*CRX) 2 MG/ML INJ IV PUSH (08:58)
[2024-12-30] MEDS: ACETAMINOPHEN 325 MG TABLET 650 MG PO (11:30)
[2024-12-30] MEDS: CHOLECALCIFEROL (VITAMIN D3) 125 MCG (5,000 UNITS) TABLET PO (11:30)
--- NOTE | 2024-12-30 13:37 | P.DS_ITS ---
DS: Admitting Diagnosis Discharge Date 12/30/2024 Admitting Diagnosis Fall DS: Discharge Diagnosis Discharge Diagnosis (1) Accident due to mechanical fall without injury: Code(s): W19.XXXA - Unspecified fall, initial encounter Status: Acute (2) Dehydration: Code(s): E86.0 - Dehydration Status: Acute (3) UTI (urinary tract infection): Qualifiers: Hematuria presence: without hematuria Urinary tract infection type: acute cystitis Qualified Code(s): N30.00 - Acute cystitis without hematuria Code(s): N39.0 - Urinary tract infection, site not specified Status: Acute (4) Pancytopenia: Code(s): D61.818 - Other pancytopenia Status: Chronic (5) Gait abnormality: Code(s): R26.9 - Unspecified abnormalities of gait and mobility Status: Acute (6) Elevated bilirubin: Code(s): R17 - Unspecified jaundice Status: Acute DS: Summary Hospital Course Hospital Course: # Accident due to mechanical fall without injury: * Patient reportedly fell attempting to get out of bed. * Imaging obtained left tib-fib, left knee, left ankle and chest neg for acute abnormality * Fall precautions * PT and OT evaluation to determine safety for return to independently. * PT OT recommend home with home health * Patient declines home health # Dehydration: * As evidenced by elevated CK * Continue IV fluid hydration of normal saline . * Heart healthy diet # UTI (urinary tract infection): * As noted per recent urinalysis. However asymptomatic * Previous microbiology is were reviewed and they show that patient has grown out E coli multiple times from her urine. Blood cultures x2 currently pending.Since asymptomatic will discontinue IV antibiotics # Pancytopenia: * Marginally low WBCs at 3.7, hemoglobin at 10.9 and platelets at 119. It should be noted that these values are still improvement over previous on comparison * No bleeding noted. * She will need to follow up with Hematology for further evaluation of her pancytopenia # Gait abnormality: * Patient complains of generalized weakness. PT and OT evaluate and treat ordered. * Fall precautions ordered. * Appreciate the recommendation of therapies making their recommendation upon discharge. # Elevated bilirubin: Right upper quadrant ultrasound shows cholelithiasis with dilated bile duct Down trending bilirubin Ordered MRCP however could not tolerate Re-attempted MRCP on 12/30/2024: Cholelithiasis with no evidence of acute cholecystitis or choledocholithiasis. Cystic pancreatic lesion concerning for IPMN cystic pancreatic neoplasm. CA 19 9 ordered. She will follow-up with GI with regard to this. # newly diagnosed IPMN cystic pancreatic neoplasm. Check CA 19-9. Follow-up with GI as an outpatient basis # Chronic compression fractures of T11 and L1 diagnosed February 2024 # History of endometrial carcinoma status post hysterectomy 2022 she underwent radiation treatment subsequently Time Spent with Patient Time attestation: Total time spent providing and/or coordinating discharge services: 40 minutes Exam Narrative: GENERAL: Alert and oriented x3 not in acute distress HEAD: Normocephalic, atraumatic. EYES: PERRLA and EOMI. BACK: No midline thoracic spinous tenderness, crepitus step-offs or deformities. CHEST: Clear to auscultation. No respiratory distress. No tenderness to chest wall HEART: Regular rate and rhythm. No murmur heard. Normal peripheral pulses. ABDOMEN: Soft, nontender, nondistended, normal active bowel sounds. EXTREMITIES: Hematoma with overlying ecchymosis noted to the left tibia with tenderness. Mild tenderness to the left knee and medial malleolus. no obvious deformity. DP pulse 2 +. Sensation intact. No tenderness remainder of extremities. Full active and passive range of motion of BUE and BLE. SKIN: Warm, dry, no rash. NEURO: No focal deficits. Alert and oriented x3 DS: Data Data Completed and Pending Labs on day of discharge: Labs from last 24 hours 12/30/24 05:45 WBC 2.3 L RBC 4.02 L Hgb 9.8 L Hct 33.3 L MCV 82.8 MCH 24.4 L MCHC 29.4 L RDW 21.6 H Plt Count 100 L MPV 10.4 Immature Gran % (Auto) Not Reportable Neut % (Auto) Not Reportable Lymph % (Auto) Not Reportable Cross % (Auto) Not Reportable Eos % (Auto) Not Reportable Baso % (Auto) Not Reportable Lymph # (Auto) Not Reportable Cross # (Auto) Not Reportable Eos # (Auto) Not Reportable Baso # (Auto) Not Reportable Abs Immat Gran (auto) Not Reportable Absolute Neuts (auto) Not Reportable Absolute Nucleated RBC Not Reportable Total Counted 100 Neutrophils % (Manual) 47 Band Neutrophils % 0 Lymphocytes % (Manual) 31 Monocytes % (Manual) 21 H Eosinophils % (Manual) 1 Nucleated RBC % Not Reportable Abs Neuts (Manual) 1.08 L Abs Lymphs (Manual) 0.71 L Abs Monocytes (Manual) 0.48 Absolute Eos (Manual) 0.02 Smudge Cells Few Platelet Estimate Decreased % Immature Plt Fraction 3.8 Hypochromasia 1+ Anisocytosis 1+ Ovalocytes 1+ Schistocytes None seen Sodium 137 Potassium 4.1 Chloride 106 Carbon Dioxide 26 Anion Gap 5 BUN 11 Creatinine 0.55 L Estim Creat Clear Calc 97 Estimated GFR > 60 Glucose 112 H Calcium 8.7 Magnesium 1.9 Total Bilirubin 1.0 AST 51 H ALT 33 Alkaline Phosphatase 107 Total Protein 6.6 Albumin 3.1 L Preliminary micro results at discharge 12/26/24 01:05 Blood Culture - Preliminary Blood 12/26/24 01:05 Blood Culture - Preliminary Blood Imaging Radiologist's impression: ITS Impressions Lumbar Spine CT 12/26/24 05:37 Impression: Chronic compression fractures of T11 and L1. Stable possible minimal loss of height of the superior endplate region of T12. Degenerative spondylitic changes, as above. Ankle X-Ray 12/26/24 05:41 Impression: Unremarkable left ankle. Chest X-Ray 12/26/24 05:41 Impression: Clear lungs. Knee X-Ray 12/26/24 05:42 Impression: Minimal degenerative change of the knee. Tibia/Fibula X-Ray 12/26/24 05:42 Impression: Unremarkable left tib-fib radiographs. Abdomen Ultrasound 12/26/24 19:17 IMPRESSION: 1: Cholelithiasis with dilated common bile duct. Consider cholecystitis in the appropriate clinical setting. MRCP 12/30/24 10:26 IMPRESSION: 1. Cholelithiasis. No evidence of acute cholecystitis or choledocholithiasis. 2. Cystic pancreatic lesion concerning for IPMN cystic pancreatic neoplasm 3. Mild hepatic steatosis Discharge Plan Discharge Attending physician on discharge: Allen Prieto Consulting providers: Vinicius Hollins Discharging Clinician: Allen Prieto Anticipated Discharge Date/Time: 12/30/24 13:41 Patient Disposition: Home with Home Health Service Activity: as tolerated Diet: heart healthy Discharge Instructions: Ice pack p.r.n. to left urbina Patient Instructions: Antibiotic Form Patient Language: Ugandan Stand Alone Forms: General Discharge Information Follow-up/Referrals: Leonardo Barreto MD [Physician, Hematology] - 2 Weeks Referral Note: pancytopenia, chronic Griffin Bernstein MD [Physician, Gastroenterology] - 2 Weeks Referral Note: IPMN cystic pancreatic lesion noted on MRCP Yosi Temple MD [Primary Care Provider, [facility]] - 1 Week Discharge Medications: Continued cholecalciferol (vitamin D3) 125 mcg (5,000 unit) Tablet 125 mcg PO DAILY Qty: 0 acetaminophen 500 mg Tablet 500 mg PO Q6-12H PRN (Reason: Pain) Qty: 30 0RF Discontinued methocarbamol 750 mg Tablet 750 mg PO QID Qty: 30 0RF docusate sodium 100 mg Capsule 100 mg PO BID Qty: 20 0RF gabapentin [Neurontin] 300 mg Capsule 300 mg PO TID Qty: 30 0RF ciprofloxacin HCl 500 mg Tablet 500 mg PO Q12HR Qty: 14 0RF hydrochlorothiazide 25 mg Tablet 25 mg PO QAM Qty: 30 0RF Date of admission: 12/27/24 08:06 Primary Care Provider: Yosi Temple Admitting Provider: Sona Farah Attending physician on admission: Sona Farah Condition: Stable
[2024-12-30 14:00] VITALS: BP 133/58; PULSE 70; RESP 18; TEMP 36.3; O2SAT 100
[2025-01-01 09:09] LABS: CA 19-9 24 U/mL (0-35)
== END 2024-12-30 15:46 | disposition home or self-care (01) | DRG 690 ==
LOC: ANHED 12-26 01:57 → ANH3MEDSUR 12-26 02:47
PROVIDERS: General Practice; Internal Medicine; Admitting Provider Family Medicine; Emergency Provider Physician Assistant; PCP Emergency Medicine; Visit Provider Internal Medicine
DX: N39.0 Urinary tract infection, site not specified (principal); D61.818 Other pancytopenia; I10 Essential (primary) hypertension; D37.8 Neoplasm of uncertain behavior of other specified digestive organs; K80.20 Calculus of gallbladder without cholecystitis without obstruction; E55.9 Vitamin D deficiency, unspecified; E86.0 Dehydration; R26.9 Unspecified abnormalities of gait and mobility; S80.12XA Contusion of left lower leg, initial encounter; W01.0XXA Fall on same level from slipping, tripping and stumbling without subsequent striking against object, initial encounter; Z85.42 Personal history of malignant neoplasm of other parts of uterus
CPT/HCPCS: 36415; 71045; 72131; 73564; 73590; 73610; 74183; 76376; 76705; 80053; 81001; 82550; 83605; 83735; 85025; 85027; 85055; 86301; 87040; 87086; 93005; 96361; 96365; 97110; 97116; 97161; 97165; 97530; 97535; 99285; A9270; A9577; G0378; J0696; J2270; J7030

== ENCOUNTER 2025-02-02 12:20 | Emergency (ER) | payer MEDICARE, BC, SELFPAY ==
--- OUTSIDE RECORDS SUMMARY | 2009-12-22 19:00 | XMS_ITS | Continuity of Care Document ---
Author Organization [facility] Address [address] [place] [address] [address] [place] [address] Phone Care Team Providers Care Ambulatory Technologist Name Role Phone Cope OD, Giacomo Unavailable Unavailable Procedures Procedure Date Cntct Lens Hydrophil Bifocal Medical Tax Refraction Eye Exam & Treatment Cntct Lens Hydrophil Bifocal Cuffed and Wanted Contact Lens/es Other Type Cuffed and Wanted CL Replacement - [employer] Disp W/BW Soft Cuffed and Wanted Eye Exam & Treatment Refraction CL Replacement - [employer] Disp W/BW Soft Cuffed and Wanted CL Replacement - [employer] Disp W/BW Soft Cuffed and Wanted Eye Exam & Treatment Refraction CL Replacement - [employer] Disp W/BW Soft Cuffed and Wanted CL Replacement - [employer] Disp W/BW Soft Cuffed and Wanted CL Replacement - [employer] Disp W/BW Soft Cuffed and Wanted CL Replacement - [employer] Disp W/BW Soft Sales Tax Eye Exam & Treatment Advance Directives Directive Yes / No Effective Date File Name No Information Encounters Encounter Description Practice Location Reason(s) For Visit Diagnoses Date Provider Providers Copied on Encounter [facility], [address] [place] [address] [address], [place], [place], [address], [place] tel:[phone] SEC [facility] No Information Aug-1 9-201 0 Cope OD Giacomo. [facility] Corporate Center , [address], [place], [facility], [place]. tel:[phone] [facility], [address] [place] [address] [address], [place], [place], [address], [place] tel:[phone] SEC [facility] No Information Aug-0 4-201 0 Cope OD Giacomo. [facility] Corporate Center , [address], [place], [facility], [place]. tel:[phone] [facility], [address] [place] [address] [address], [place], [place], [address], [place] tel:[phone] [facility] No Information Jul-1 8-201 0 Cope OD Giacomo. [facility] , [address], [place], [facility], [place]. tel:[phone] [facility], [address] [place] [address] [address], [place], [place], [address], [place] tel:[phone] [facility] No Information Mar-2 4-200 9 Cope OD Giacomo. [address] [place], [place] [address]ate Center , [address], [place], [facility], [place]. tel:[phone] [facility], [address] [place] [address] [address], [place], [place], [address], [place] tel:[phone] SEC [facility] No Information Nov-3 0-200 9 Cope OD Giacomo. [address] [place], [place] [address]ate Center , [address], [place], [facility], [place]. tel:[phone] [facility], [address] [place] [address] [address], [place], [place], [address], [place] tel:[phone] SEC [place] [facility] No Information 5-200 9 Cope OD Giacomo. [address] , [address], [place], [address], [place]. tel:[phone] [facility], [address] [place] [address] [address], [place], [place], [address], [place] tel:[phone] [facility] No Information 1-200 8 Cope OD Giacomo. [address] , [address], [place], [facility], [place]. tel:[phone] [facility], [address] [place] [address] [address], [place], [place], [address], [place] tel:[phone] [facility] [place] No Information 4-200 8 Cope OD Giacomo. [address] , [address], [place], [facility], [place]. tel:[phone] [facility], [address] [place] [address] [address], [place], [place], [address], [place] tel:[phone] [facility] [place] No Information 9-200 8 Cope OD Giacomo. [address] , [address], [place], [address], [place]. tel:[phone] [facility], [address] [place] [address] [address], [place], [place], [address], [place] tel:[phone] [facility] No Information 4-200 8 Cope OD Giacomo. [address] , [address], [place], [address], [place]. tel:[phone] [facility], [address] [place] [address] [address], [place], [place], [address], [place] tel:[phone] [facility] No Information 1-200 7 Cope OD Giacomo. [address] , [address], [place], [facility], . tel:[phone] [facility], [address] [place] [address] [address], [place], [place], [address], tel:[phone] SEC [facility] No Information Luis Enrique-0 3-200 7 Cope OD Giacomo. [address] [facility] [place] , [address], [place], [facility], . tel:[phone] [facility], [address] [place] [address] [address], [place], [place], [address], tel:[phone] [facility] [place] No Information Apr-0 3-200 7 Cope OD Giacomo. [facility] [place] , [address], [place], [facility], . tel:[phone] [facility], [address] [place] [address] [address], [place], [place], [address], tel:[phone] [facility] No Information Mar-2 1-200 7 Cope OD Giacomo. [address] [place], [place] [address]ate [place] , [address], [place], [facility], . tel:[phone] Family History Family Member Type Diagnosis Age At Onset No Information Payers Payer name Insurance type Covered alliance party ID Authoriza tion(s) No Information Social History [...]
--- OUTSIDE RECORDS SUMMARY | 2025-02-02 12:24 | XMS_ITS | Clinical Summary ---
Author Organization [facility] [place] [address] Address [facility] [place] [address] Care Team Providers Care Staff Physical Therapist Name Role Phone Lima Wang Primary Care Provider [phone]- [phone] Allergies Active Allergy Reactions Criticality Noted Date [...] (07/19/2022): Added automatically from request for surgery [id number] BMI 40.0-44.9, adult 05/23/2021 Assessment & Plan (05/23/2021 1:48 PM RESIDENTIAL MORTGAGE UNDERWRITER): Obesity is unchanged. Discussed the patient's BMI. The BMI is above average. BMI management plan is completed. BMI Follow-up includes: nutrition counseling, exercise counseling and education provided. History of vasculitis 05/23/2021 Assessment & Plan (05/23/2021 1:47 PM RESIDENTIAL MORTGAGE UNDERWRITER): Continue care same at this time Menopause 01/04/2021 Assessment & Plan (01/04/2021 11:47 AM CDT): bmd for osteoporosis screening Thrombocytopenia 01/04/2021 Assessment & Plan (05/23/2021 1:46 PM RESIDENTIAL MORTGAGE UNDERWRITER): labs entered, will notify patient of results as available Assessment & Plan (01/04/2021 11:47 AM CDT): Repeat cbc in the next 30d. We discussed hematology referral pending results. Edema of both legs 11/11/2020 Assessment & Plan (05/23/2021 1:47 PM RESIDENTIAL MORTGAGE UNDERWRITER): Chronic and stable at this time Assessment & Plan (11/11/2020 12:34 PM CDT): Add lasix every day x 5 days due to edema Onychomycosis 11/11/2020 Assessment & Plan (05/23/2021 1:46 PM RESIDENTIAL MORTGAGE UNDERWRITER): Continue with care per podiatry Assessment & Plan (11/11/2020 12:34 PM CDT): Will refer to podiatry for further evaluation and treatment Chronic thumb pain, right 11/03/2020 Assessment & Plan (11/03/2020 5:03 PM CDT): Offered and advised referral to ortho, she declines at this time Obesity, morbid, BMI 40.0-49.9 09/06/2020 Assessment & Plan (05/23/2021 1:46 PM RESIDENTIAL MORTGAGE UNDERWRITER): Obesity is unchanged. Discussed the patient's BMI. [...] 09/06/2020 Assessment & Plan (05/23/2021 1:47 PM RESIDENTIAL MORTGAGE UNDERWRITER): Fasting labs entered, will notify patient of [...] 09/06/2020 Assessment & Plan (05/23/2021 1:46 PM RESIDENTIAL MORTGAGE UNDERWRITER): labs entered, will notify patient of results as available Episode of recurrent major depressive disorder 0 09/06/2020 Assessment & Plan (05/23/2021 1:47 PM RESIDENTIAL MORTGAGE UNDERWRITER): Chronic, declines ssri/snri Assessment & Plan (12/28/2020 [...] 11/28/2021 Assessment & Plan (05/23/2021 1:47 PM RESIDENTIAL MORTGAGE UNDERWRITER): She is going to consult with a book mender regarding living will/end of life care Obesity [...] sodium, heart healthy diet BMI 40.0-44.9, adult ([facility]) 09/06/2020 01/04/2021 Assessment & Plan (12/28/2020 8:48 [...] Medical History Date Comments Depression Diabetes mellitus Vasculitis 11/2020 Family History Medical History Relation [...] on file Legal Sex Female 10:39 AM RESIDENTIAL MORTGAGE UNDERWRITER Gender Identity Not on file Sexual Orientation [...] Screening-Bone Density Scan 04/20/2023 04/20/2021 Covid-19 Vaccine (2024-2 6 season) 2025 01/30/2021, 07/23/2020, 07/02/2020 Influenza Vaccine (#1) 2025 [...] Routine, Read Routine (OP Routine) 04/20/2021 Menopause DIABETES FOOT EXAM Routine 01/17/2021 SCREENING MAMMOGRAM [...] Recently Relevant to Health Maintenance Insurance MEDICARE [facility] MEDICARE [facility] Care Teams Staff Physical Therapist Relationship Specialty Start Date End Date Kathleen, Lima Talia, PA PCP - General Applier 08/25/20
--- OUTSIDE RECORDS SUMMARY | 2025-02-02 12:24 | XMS_ITS | Patient Health Record ---
Author Organization [facility] Address [address] [place] [address] Care Team Providers Care Assembler For Puller Over Machine Name Role Phone Keena Snow Primary Care Provider Allergies Allergen (clinical drug ingredient) Drug/Non Drug [...] 30 days 07/12/2020 Active Ergocalciferol 1.25 MG (35514 UT) 1 capsule Orally weekly; Duration: 90 days 07/13/2020 Active Problems Problem Type SNOMED Code ICD Code Onset Dates Problem Status W/U Status Risk Notes Problem Vitamin D deficiency (34108848) Vitamin D deficiency (E55.9) Active confirmed Problem Recurrent major depression in remission (41917762) Recurrent major depressive disorder, in partial remission (F33.41) Active confirmed Problem Type II diabetes mellitus without complication (143022496) Type 2 diabetes mellitus without complication, without [...] Date MEDICARE PART A [address] [place] [address] [id number] Nely Fitch Self - patient is the insured 1 [facility] [address] [place] [address] [phone] [id number] Nely Fitch Self - patient is the insured 1 Medical (General) History Medical History History ICD Code diabetic Degenerative disc disease Surgical History Surgery Date(Month/Year)
--- OUTSIDE RECORDS SUMMARY | 2025-02-02 12:24 | XMS_ITS | Clinical Summary ---
Author Organization [facility] Address [address] [address] Care Team Providers Care Commercial Sales Consultant Name Role Phone Nazanin Dawson MD Primary Care Provider [phone]- [phone] Allergies Active Allergy Reactions Criticality Noted Date [...] 08/11/2012 Insurance MEDICARE PART A AND B [facility] Care Teams Commercial Sales Consultant Relationship Specialty Start Date End Date Nazanin Dawson MD PCP - General Family Practice 10/06/22
--- OUTSIDE RECORDS SUMMARY | 2025-02-02 12:24 | XMS_ITS | Clinical Summary ---
Author Organization [facility] Address [address] [place] [address] Care Team Providers Care Carcass Washer Name Role Phone Unavailable Primary Care Provider Unavailabl e Source Comments [facility],non-owned Affiliates and Associated Physician Practices is amultiple site organization consisting of ambulatory clinics and hospital sitesin [place], [place], [place]. This disclosure is being madepursuant to the Care Everywhere program and may not contain all information available regarding this patient. Last updated 18.[facility] [employer] Allergies Active Allergy Reactions Criticality Noted Date Comments Codeine Unknown 07/31/2022 Medications * Be aware that medications may not be up to date on this document. Alwaysverify current medications with the patient. No known medications Active Problems Problem Noted Date Diagnosed Date Type 2 diabetes mellitus wit hout complication, without long-term current use of insulin 07/31/2022 Endometrial cancer 07/31/2022 Severe obesity (BMI >= 40) 07/31/2022 Social History Tobacco Use Types Packs/Day Years Used Date Smoking Tobacco: Never Assessed Comments Unknown Sex and Gender Information Value Date Recorded Sex Assigned at Not on file Legal Sex Female 4:24 AM ADJUSTER LEADER Gender Identity Not on file Sexual Orientation Not on file Last Filed Vital Signs Vital Sign Reading Time Taken Comments Blood Pressure 118/68 07/31/2022 2:18 PM CDT Pulse - - Temperature - - Respiratory Rate - - Oxygen Saturation - - Inhaled Oxygen Concentration - - Weight 117.4 kg (258 lb 12.8 oz) 07/31/2022 2:18 PM CDT Height 170.2 cm (5' 7) 07/31/2022 2:18 PM CDT Body Mass Index 40.53 07/31/2022 2:18 PM CDT Plan of Treatment Health Maintenance Due Date Last Done Comments BONE DENSITY TESTING 1945 MEDICARE AWV 12 MONTHS 1945 HEPATITIS C SCREENING 07/29/1965 DIABETES-SERUM CREATININE 08/02/1965 DTAP/TDAP/TD VACCINES (1 - Tdap) 08/02/1966 PNEUMOCOCCAL VACCINE 50+ (1 of 2 - PCV) 08/02/1966 DIABETES-STATIN 1987 ZOSTER VACCINE (1 of 2) 08/02/1997 DIABETES RETINOPATHY SCREENING 07/31/2022 DIABETES-FOOT EXAM WITH MONOFILAMENT 07/31/2022 DIABETES-HGB A1C 07/31/2022 Respiratory Syncytial Virus (RSV) Vaccine Pt: or over 60 yrs (1 - 1-dose 75+ series) 08/02/2022 DEPRESSION SCREENING 05/07/2024 DIABETES - URINE PROTEIN SCREENING 05/07/2024 COVID-19 VACCINE ( season) 2025 02/10/2022, 09/27/2021, 01/30/2021, Additional history exists INFLUENZA VACCINE (#1) 2025 , 01/30/2021, 02/05/2020, Additional history exists HEPATITIS B VACCINE Aged Out No longe r eligible based on patient's age to complete this topic HIB VACCINE Aged Out No longer eligi ble based on patient's age to complete this topic HPV VACCINE Aged Out No longer eligi ble based on patient's age to complete this topic MENINGOCOCCAL (Group B) VACCINE SHARED DECISION-MAKING Aged Out No longer eligible based on patient's age to complete this topic MENINGOCOCCAL GROUPS A/C/Y/W VACCINE Aged Out No longer eligible based on patient's age to complete this topic Insurance MEDICARE ANTHEM ANTHEM MEDICARE
--- OUTSIDE RECORDS SUMMARY | 2025-02-02 12:36 | XMS_ITS | Data Portability ---
Author Organization [facility], [place] Address [address] [place] [address] Assessment No assessment recorded. Plan of Treatment Reminders Order Date Submit Date Provider Last Modified By Organization Details Last Modified Time Details Appointments None recorded. Lab None recorded. Referral primary care provider referral 2022 023 [email or web address] Not available 3 17:34:44 Procedures None recorded. Surgeries dilation and curettage with hysteroscop y (SURG) 2022 023 [facility], [address], [address], 3 13:18:00 Imaging MAMMO, screening, bilateral 2022 023 [facility], [address] [place] [address], [address], 3 05:01:10 Medication Orders None recorded. Patient TargetsNo targets recorded. Patient InstructionsNo instructions recorded. Reason for Referral Primary Care Provider Referr al for Adult health examination Referring Physician: Britney Bess, ONLINE BANKING SPECIALIST, Encounter Date: 05/24/2022 Results Created Date Observation Date Name Description Value Unit Range Abnormal Flag Note LastModifiedBy Organization Detail LastModifiedTime 06/27/19 23 06/27/2022 US, trans baron diaz No observ ation record ed. [address] [place] [address] [place] [address], [address], 06/27/2022 14:48:39 Result Notes None recorded. Procedures Surgical History Date Name Laterality Status Provider Name and Address Organization Details Recorded Time 06/27/19 23 DILATION AND CURETTAGE WITH HYSTEROSCOPY (SURG) completed Lexi Morgan [facility] 06/28/2022 10:34:03 Imaging Results None recorded. Procedure Notes None recorded. Medical Equipment None Reported. Allergies Allergen ID Allergen Name Allergen Category Reaction Reaction Severity Criticality Documentation Date Start Date Code Code System Note Provider Name and Address Organization Details Recorded Time codeine medicatio n Not available Not available Not available 05/24/2022 2670 RxNorm Dorcas Gutierrez null, [facility] 15:03:00 Medications Not known to be on any medication Vitals Date Recorded Systolic And Diastolic Provider Name and Address Organization Details Last Updated DateTime 05/24/2022 136/78 mm[Hg] Britney Bess DOMINGO- [address], [place], [address], [facility] 05/25/2022 11:49:09 Date Recorded Body height Body mass index (BMI) Body weight Provider Name and Address Organization Details Last Updated DateTime 05/24/2022 172.72 cm 40.4 kg/m2 067992.85 g Dorcas Gutierrez [facility] 05/24/2022 15:02:46 Date Recorded Body height Body mass index (BMI) Body weight Systolic And Diastolic Systolic And Diastolic Provider Name and Address Organization Details Last Updated DateTime 06/12/2022 172.72 cm 41.1 kg/m2 108908.9 4 g 163/76 mm[Hg] 142/80 mm[Hg] Gerri Orr [facility] 15:34:48 Date Recorded Body height Body mass index (BMI) Body weight Systolic And Diastolic Provider Name and Address Organization Details Last Updated DateTime 07/04/2022 172.72 cm 40.4 kg/m2 368228.57 g 182/79 mm[Hg] Sharmin Singh [facility] 07/04/2022 15:26:19 Social History Question Answer Notes LastModified by Organizat ion Details LastModified Time Tobacco Smoking Status Never Smoker Dorcas Gutierrez [facility] 05/24/2022 15:04:24 Are You Blind Or Do You Have Difficulty Seeing? No Information not available 05/24/2022 Are You Deaf Or Do You Have Serious Difficulty Hearing? No Information not available 05/24/2022 What Type Of Diet Are You Following? REGULAR Information not available 05/24/2022 Do You Have Difficulty Walking Or Climbing Stairs? Yes [email or web address] Information not available 05/25/2022 Sex: Unknown Functional Status Question Answer Note LastModified by Organizat ion Details LastModified Time What is your level of alcohol consumption? None Information not available 05/24/2022 Are you able to walk independently without assistance or assistive devices? YESWOREST Information not available 05/24/2022 Are you able to care for yourself independently? Yes Information not available 05/24/2022 Do you have difficulty dressing, bathing, grooming, or toileting? No Information not available 05/24/2022 What is your exercise level? None Information not available 05/24/2022 Mental Status None recorded. Family History Relationship Description Onset Age of this Age Resolved Age Notes LastModified by Organization Details LastModified Time Brother Malignant tumor of colon Not available 2022 15:03:39 Brother Diabetes mellitus Not available 2022 15:03:52 Father Diabetes mellitus Not available 2022 15:03:52 Father Hypertensive disorder Not available 2022 15:04:09 Sister Diabetes mellitus Not available 2022 15:03:52 Sister Hypercholest erolemia Not available 2022 15:04:00 Sister Hypertensive disorder Not available 2022 15:04:09 Mother Mesothelioma (malignant, clinical disorder) [email or web address] Not available 2022 15:56:09 Medical History Condition Response Allergies (Food, seasonal, environmental ) N Other N Breast Cancer N Drug/Latex Allergies/Reactions N Blood Transfusion N Dermatologic Disorders N Lung Disease N Defects or Inherited Disease N Breast Problem N Gestational Diabetes N Hematologic disorders N Anesthesia Complications N History of STI N Deep Vein Thrombosis N Polycystic ovary syndrome N Anxiety Disorder N Autoimmune disease N Arthritis N Infertility N Polyps N Acid Reflux (GERD) N History of abnormal pap N Cancer N Stroke N Varicosities N Neurologic/Epilepsy N Endometriosis N High Cholesterol N Headaches N Fibromyalgia N Kidney Disease N Heart Problems N Kidney or Bladder Problems N Thyroid Problems N GI Problems N Eating Disorder N Anemia N Art (IVF or FET) N Psychiatric Illness Y Ovarian Cancer N Diabetes Y Pulmonary (TB, Asthma) N Hepatitis/Liver Disease N No Past Medical History N Eczema N Urinary Tract Infection N Abuse/Domestic Violence N Asthma N Trauma/Violence N Depression/ depression N Heart Disease N Pre-Eclampsia N Hypertension N Osteoporosis N Thrombophilias N Gynecological History Statement/Question Response If Post Menopausal, Age at Menopause 54 Sexually Active? N STIs/STDs N Age of first menstrual cycle 14 HPV Vaccine N Date of Last Pap Smear Sexual Problems? N Current Control Method Menopause LMP Unknown Obstetrics History GPAL:G 0 P 0 0 0 0 Past Encounters Encounter ID Performer Location Encounter Start Date Encounter Closed Date Diagnosis/Indication Diagnosis SNOMED-CT Code Diagnosis ICD10 Code Diagnosis IMO Codes Diagnosis Note [id number] Britney Bess , [facility] [place] [address] [address] 05/24/2022 14:43:15 05/25/2022 14:28:33 Postmenopausal bleeding 56176395 N95.0 Advised pt will contact her with next steps in plan of care after speak with Dr. Lee.Likel y will need to do US/EMBx under anesthesia since unable to tolerate in office exams/othe r. Will need:EMBxU SPap/HPV (she is uncertain when last pap was performed) . NOTE:Defin itely some menstrual blood in vag canal--but she cannot tolerate opening the speculum enough to fully visualize cervix and surroundin g area.Manua l Pelvic exam limited due to body habitusCla ims never been SA NOTE:Needs to contact her insurance to see who she can see for a new PCP to manage her DM/Psych issues.;an d medication s. Her previous left their practice. Attempted to review Hx & update chart--she is poor historian Time spent in visit is a total of 30-45 mins with at least 50% of visit consisting of counseling and review of plan of care. Adult heal th examination [id number] Z00.00 Given suggestion for new PCP but unsure if they will take her insurance. Option to contact her insurance company & Screening mammography 24 [id number] Z12.31 Instructed how to schedule this screening [id number] Tim Lee MD [facility] [address] [address] 06/12/2022 15:02:13 06/13/2022 15:06:17 Postmenopausal bleeding 60849995 N95.0 76-year-ol d female postmenopa usal bleeding. We will do a hysterosco py D&C and ultrasound under anesthesia . She understand s risks, benefits, and alternativ es. She has completed the informed consent process is ready to proceed. [id number] Tim Lee MD [place] [address] [address] 06/28/2022 09:58:42 06/28/2022 10:00:23 [id number] iTm Lee MD [place] [address] [address] 07/04/2022 15:04:51 07/05/2022 11:23:16 Malignant neoplasm of uterus [id number] C55 76-year-ol d female with newly diagnosed endometria l cancer. She had endometria l carcinoma [address] 1 on her endometria l biopsy. She had hysterosco py D&C in the hospital. We discussed the results. She has referral to Gyne Onc. She is recovering normally. She has minimal bleeding. Health Concerns Section Related Observation LastModified by Organization Detai ls LastModified Time None Recorded Concern Status LastModified by Organization Details LastModified Time None Recorded Advance Directives Directive None Recorded Payers Insurance Date Sequence Insurance Name Policy Number Policy Lange Covered Member ID Lange Member ID Guarantor Name 07/03/2022 1 [place] Nely Pringleer [id number] Nely Fitch 07/06/2022 2 [place] [id number] Nely Pringleer [id number] Nely Bringer Notes Date Note Type Note Provider Name and Address Organization Details Recorded Time 3 text/html Patient is a 76yo white postmenopausal female here today for PMB that started last sunday to present time.Sunday noticed only red spotting on vzgg-kawKzyccchm-muvidk in a cup to see if it was coming from bladder.Sunday still had a couple bouts of spotting seen with wipe.Sunday this happened again and feels it has now increased.She has no other sx's, medication changes, falls, and has never been sexually active per pt.Denies any recent falls or past sexual or other trauma today when asked. Neg pain of abd/pelvis/flankNeg urinary sx's (+[place])Neg GI sx'sNeg N/V/F/C/DNeg Vag d/c, odor, irritation, itching Living in a new space-issues with current living area.New cell phoneHas not seen PCP for almost 6mos.Talkative but is a Poor health Hx HistorianAttempted to Reviewed her Hx and update it in chart Britney Bess DOMINGO- [address], [place], [address], [facility] 05/25/2022 11:58:34 3 text/html this patient is a 76-year-old female with postmenopausal bleeding and he was unable to tolerate transvaginal ultrasound. Needs ultrasound and endometrial biopsy in the operating room. Under anesthesia. Hysteroscopy D&C to be done in the operative room along with pelvic ultrasound. The patient understands the procedure. The procedure was described to the patient in great detail. the patient also understands the risks. The risks were also explained in detail. She understands that injuries May occur during surgery. She understands these injuries can result in hospitalization, more surgery, and severe illness. She understands there is risk of hemorrhage and infection. Tim Lee MD [address], [place], [address], [facility] 06/12/2022 22:35:17 3 text/html 76-year-old female with newly diagnosed endometrial cancer. She had endometrial carcinoma [address] on her endometrial biopsy. She had hysteroscopy D&C in the hospital. We discussed the results. She has referral to Gyne Onc. She is recovering normally. She has minimal bleeding. Tim Lee MD [address], [place], [address], [facility] 07/04/2022 22:28:49 OBGyn Episode No OBEpisode recorded.
[2025-02-02 12:54] VITALS: TEMP 36.8
[2025-02-02 13:01] LABS: Hematocrit 39.9 % (37.0-47.0); Hemoglobin 12.0 g/dL (12.0-15.0); Mean Corpuscular HGB Conc 30.1 g/dl (32-36); Mean Corpuscular Hemoglobin 24.8 pg (26-34); Mean Corpuscular Volume 82.4 fl (80-100); Platelet Count Result 204 k/mm3 (150-375); Red Blood Count 4.84 M/mm3 (4.2-5.4); White Blood Count 2.6 K/mm3 (4.5-10.0)
[2025-02-02] MEDS: SODIUM CHLORIDE 0.9% IV 1,000 ML 999 ML IV CONT (13:02)
--- NOTE | 2025-02-02 13:11 | ED.ABDPAIN ---
HPI - Abdominal Pain General Chief Complaint: Abdominal Pain Stated Complaint: abdominal pain, bloody diarrhea Time Seen by Provider: 02/02/25 12:33 History of Present Illness HPI narrative: Patient is a 79-year-old female who presents ER with abdominal pain and diarrhea. She was at a local grocery store when she started having abdominal cramping. She thought she would try to go to the restroom but before she could make it she soiled herself in the aisle of the facility. She reports she then made it to the bathroom and had more diarrhea. She reports there was a lot of bright red blood in the toilet. She then tried to clean herself off and came here. No fevers or chills or sweats. Abdominal pain cramping is decreased. She is not on a blood thinner. No history of GI bleed. No naproxen or ibuprofen use. Reports she had a normal bowel movement this morning. Related Data Home Medications ?Medication ?Instructions ?Recorded ?Confirmed ?Last Taken ?Type cholecalciferol (vitamin D3) 125 125 mcg PO DAILY ##0 02/23/24 12/26/24 Unknown History mcg (5,000 unit) tablet Allergies Allergy/AdvReac Type Severity Reaction Status Date / Time codeine Allergy Severe Muscle Pain Verified 12/25/24 23:34 Review of Systems Review of Systems: All systems reviewed & are unremarkable except as noted in HPI and below Constitutional: Constitutional: Reports no additional constitutional complaints ENT: Reports system reviewed and no additional complaints, except as documented Cardiovascular: Cardiovascular: Reports no additional cardiovascular complaints Respiratory: Respiratory: Reports no additional respiratory complaints Gastrointestinal: Gastrointestinal: Reports no additional gastrointestinal complaints [facility] Past Medical History Medical History (Updated 02/02/25 @ 15:40 by Caleb Saxena MD) Accident due to mechanical fall without injury Generalized edema Uterine cancer stage T2 N0(i+)sn M0, 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 She has now completed adjuvant whole pelvic radiation therapy delivered between 10/30/2022 and 12/07/2022. Status post total hysterectomy Diabetes Morbid obesity Surgical History Surgical History Status post total hysterectomy and bilateral salpingo-oophorectomy Social History Social History Smoking status: Never smoker Second hand tobacco smoke exposure: No Alcohol intake: never Substance use: never Substance use type: does not use Do You Feel Safe in your Home?: Yes Lack of Transportation: No Lack of Food: Never True Current Housing: I Have Housing Concerned About Future Housing: No Difficulty Paying Gas/Electric Bills: No Difficulty Paying for Meds: No Currently Unemployed: No Education: Master's Degree or Higher Difficulty w/ Childcare or Family Care: No Living arrangements: alone Occupation/Education: retired Gender identity (if verbalized by the patient): Female Sexual Orientation (if Verbalized by the Patient): Straight or Heterosexual Spiritual care concerns: No Exam Narrative: GENERAL: Well-appearing, well-nourished, and in no acute distress. HEAD: Normocephalic, atraumatic. EYES: PERRL and EOMI. ENT: Mucous membranes moist. CHEST: Clear to auscultation. No respiratory distress. HEART: Regular rate and rhythm. Normal peripheral pulses. ABDOMEN: Soft, nontender, nondistended. Normal appearing rectum, faintly occult positive stool that is liquid brown on gross inspection. EXTREMITIES: Normal range of motion. No edema. SKIN: Warm, dry, no rash. NEURO: Alert and oriented x3. PSYCH: Normal mood and affect. Course Course Emergency Course: Patient resting comfortably. She has use the restroom to urinate and has noticed bright red blood in her urine. Will treat her for hemorrhagic cystitis. She is having no abdominal pain or flank pain at this time. No recurrence of diarrhea. She has received 1 L IV fluid. Vital Signs Vital signs: Vital Signs Temperature 98.2 F 02/02/25 12:54 Temperature 98.2 F 02/02/25 12:54 MDM - Abdominal Pain Lab Data 02/02/25 12:45 02/02/25 12:45 Labs: Lab Results 02/02/25 02/02/25 02/02/25 Range/Units 12:45 13:05 15:13 WBC 2.6 L (4.5-10.0) K/mm3 RBC 4.84 (4.2-5.4) M/mm3 Hgb 12.0 (12.0-15.0) g/dL Hct 39.9 (37.0-47.0) % MCV 82.4 (80-100) fl MCH 24.8 L (26-34) pg MCHC 30.1 L (32-36) g/dl RDW 21.2 H (11.5-14.5) % Plt Count 204 D (150-375) k/mm3 MPV 10.3 (7.4-10.4) fl Immature Gran % (Auto) Not Reportable Neut % (Auto) Not Reportable Lymph % (Auto) Not Reportable [place] % (Auto) Not Reportable Eos % (Auto) Not Reportable Baso % (Auto) Not Reportable Lymph # (Auto) Not Reportable [place] # (Auto) Not Reportable Eos # (Auto) Not Reportable Baso # (Auto) Not Reportable Abs Immat Gran (auto) Not Reportable Absolute Neuts (auto) Not Reportable Absolute Nucleated RBC Not Reportable Total Counted 100 Neutrophils % (Manual) 46 (46-73) % Band Neutrophils % 2 (0-6) % Lymphocytes % (Manual) 28 (18-44) % Monocytes % (Manual) 23 H (3-9) % Eosinophils % (Manual) 1 (0-4) % Nucleated RBC % Not Reportable Abs Neuts (Manual) 1.24 L (1.3-6.7) K/mm3 Abs Lymphs (Manual) 0.72 L (1.1-4.5) K/mm3 Abs Monocytes (Manual) 0.59 (0.1-0.90) K/mm3 Absolute Eos (Manual) 0.02 (0.02-0.50) K/mm3 Platelet Estimate Adequate (Adequate) Hypochromasia 1+ Anisocytosis 1+ Schistocytes None seen Sodium 140 (137-145) mmol/L Potassium 4.3 (3.4-5.0) mmol/L Chloride 104 (98-107) mmol/L Carbon Dioxide 28 (22-30) mmol/L Anion Gap 8 (4-12) mmol/L BUN 16 (7-17) mg/dL Creatinine 0.89 (0.7-1.0) mg/dL Estim Creat Clear Calc 57 ml/min Estimated GFR > 60 (59 - ) Glucose 125 H (65-110) mg/dL Lactic Acid 2.1 H Pending (0.7-2.0) mmol/L Calcium 9.5 (8.4-10.2) mg/dL Total Bilirubin 1.8 H (0.2-1.3) mg/dL AST 54 H (14-36) U/L ALT 30 (6-35) U/L Alkaline Phosphatase 141 H (38-126) U/L Total Protein 7.9 (6.3-8.2) g/dL Albumin 3.8 (3.5-5.1) g/dL Lipase 220 (23-300) U/L Urine Color Alejandrina (Yellow) Urine Appearance Turbid H (Clear) Urine pH 6.0 (5.0-9.0) Ur Specific [place] 1.025 (1.001-1.035) Urine Protein 3+ H (Negative) mg/dL Urine Glucose (UA) Trace H (Negative) mg/dL Urine Ketones 1+ H (Negative) mg/dL Ur Blood (Man) 3+ H (Negative) Urine Nitrate Negative (Negative) Urine Bilirubin 2+ H (Negative) Urine Urobilinogen 1.0 (<2.0) mg/dL Leukocyte Esterase Rfl 1+ H (Negative) JAYNA/UL Urine RBC >100 H (0-2) /hpf Urine WBC 6-10 H (0-3) /hpf Ur Squamous Epith Cells Few (Few) /hpf Urine Bacteria None seen /hpf Discharge Plan Discharge Clinical Impression: Acute hemorrhagic cystitis, Diarrhea Patient Disposition: Home Condition: Stable Instructions: Antibiotic Form, Urinary Tract Infection in Women (ED), Acute Diarrhea (ED) Additional Instructions: You should return to the emergency department if you develop severe nausea and vomiting and are unable to keep liquids down, if you develop severe back/flank or stomach pain, or if your symptoms are not clearly improving at home. Patient Language: Togolese Prescriptions: New cephalexin 500 mg capsule 500 mg PO Q8H Qty: 21 0RF No Action cholecalciferol (vitamin D3) 125 mcg (5,000 unit) Tablet 125 mcg PO DAILY Qty: 0 acetaminophen 500 mg Tablet 500 mg PO Q6-12H PRN (Reason: Pain) Qty: 30 0RF Follow-up/Referrals: Yosi Temple MD [Primary Care Provider, Family Practice] - 1 Week
[2025-02-02 13:15] LABS: Alanine Aminotransferase 30 U/L (6-35); Albumin Level 3.8 g/dL (3.5-5.1); Alkaline Phosphatase 141 U/L (38-126); Anion Gap 8 mmol/L (4-12); Aspartate Amino Transferase 54 U/L (14-36); Bilirubin,Total 1.8 mg/dL (0.2-1.3); Blood Urea Nitrogen 16 mg/dL (7-17); Calcium 9.5 mg/dL (8.4-10.2); Carbon Dioxide 28 mmol/L (22-30); Chloride 104 mmol/L (98-107); Estimated CRCL calculation 57 ml/min; Estimated Glomerular Filt Rate > 60; Glucose 125 mg/dL (65-110); Lipase 220 U/L (23-300); Potassium 4.3 mmol/L (3.4-5.0); Sodium 140 mmol/L (137-145); Total Protein 7.9 g/dL (6.3-8.2)
[2025-02-02 13:28] LABS: Band Neutrophils Percent 2 % (0-6); Eosinophils Absolute Manual 0.02 K/mm3 (0.02-0.50); Eosinophils Percent Manual 1 % (0-4); Lymphocytes Absolute Manual 0.72 K/mm3 (1.1-4.5); Lymphocytes Percent Manual 28 % (18-44); Monocytes Absolute Manual 0.59 K/mm3 (0.1-0.90); Monocytes Percent Manual 23 % (3-9); Neutrophils Absolute Manual 1.24 K/mm3 (1.3-6.7); Neutrophils Percent Manual 46 % (46-73); Total Cells Counted 100
[2025-02-02 13:29] LABS: Anisocytosis 1+; Hypochromasia 1+; Schistocytes None Seen
[2025-02-02 13:41] LABS: Glucose Urine UA Trace mg/dL (Negative); Nitrate Urine Negative (Negative); Specific Grav Ur 1.025 (1.001-1.035)
[2025-02-02 13:42] LABS: Add Urine Microscopic? YES; Leukocyte Esterase Ur 1+ LEU/UL (Negative)
[2025-02-02 13:43] LABS: Appearance Urine Turbid (Clear)
[2025-02-02 15:54] VITALS: BP 142/49; PULSE 80; RESP 18; O2SAT 100
== END 2025-02-02 15:56 | disposition home or self-care (01) ==
PROVIDERS: Emergency Provider Emergency Medicine; PCP Emergency Medicine
DX: N30.01 Acute cystitis with hematuria (principal); R19.7 Diarrhea, unspecified; Z85.42 Personal history of malignant neoplasm of other parts of uterus; Z92.3 Personal history of irradiation; Z90.710 Acquired absence of both cervix and uterus; Z90.79 Acquired absence of other genital organ(s); Z90.722 Acquired absence of ovaries, bilateral
CPT/HCPCS: 36415; 80053; 81001; 83605; 83690; 85025; 87077; 87086; 87186; 96360; 99283; J7030

== ENCOUNTER 2025-02-18 18:56 | Emergency (ER) | payer MEDICARE, BC, SELFPAY ==
--- OUTSIDE RECORDS SUMMARY | 2009-12-22 19:00 | XMS_ITS | Continuity of Care Document ---
Author Organization [facility] Address [address] [place] [address] [address] [place] [address] Phone Care Team Providers Care Flavor Tank Tender Name Role Phone Cope OD, Giacomo Unavailable Unavailable Procedures Procedure Date Cntct Lens Hydrophil Bifocal Medical Tax Refraction Eye Exam & Treatment Cntct Lens Hydrophil Bifocal [employer] 3D Contact Lens/es Other Type [employer] 3D CL Replacement - [employer]istak[employer] Disp W/BW Soft [employer] 3D Eye Exam & Treatment Refraction CL Replacement - [employer] Disp W/BW Soft [employer] 3D CL Replacement - [employer] Disp W/BW Soft [employer] 3D Eye Exam & Treatment Refraction CL Replacement - [employer]istak[employer] Disp W/BW Soft [employer] 3D CL Replacement - [employer]istak[employer] Disp W/BW Soft [employer] 3D CL Replacement - [employer]ist[employer] Disp W/BW Soft [employer] 3D CL Replacement - [employer]ist[employer] Disp W/BW Soft Sales Tax Eye Exam & Treatment Advance Directives Directive Yes / No Effective Date File Name No Information Encounters Encounter Description Practice Location Reason(s) For Visit Diagnoses Date Provider Providers Copied on Encounter [facility], [address] [place] [address] [address], [place], [place], [address], [place] tel:[phone] SEC [facility] No Information Aug-1 9-201 0 Cope OD Giacomo. [facility] Corporate Center , [address], [place], [place], [facility], [place]. tel:[phone] [facility], [address] [place] [address] [address], [place], [place], [address], [place] tel:[phone] [facility] No Information Aug-0 4-201 0 Cope OD Giacomo. [facility] Corporate Center , [address], [place], [facility], [place]. tel:[phone] [facility], [address] [place] [address] [address], [place], [place], [address], [place] tel:[phone] [facility] No Information Jul-1 8-201 0 Cope OD Giacomo. [facility] , [address], [place], [facility], [place]. tel:[phone] [facility], [address] [place] [address] [address], [place], [place], [address], [place] tel:[phone] [facility] No Information Mar-2 4-200 9 Cope OD Giacomo. [address] [place], [place] [address]ate Center , [address], [place], [place], [facility], [place]. tel:[phone] [facility], [address] [place] [address] [address], [place], [place], [address], [place] tel:[phone] [facility] No Information Nov-3 0-200 9 Cope OD Giacomo. [address] [place], [place] [address]ate Center , [address], [place], [facility], [place]. tel:[phone] [facility], [address] [place] [address] [address], [place], [place], [address], [place] tel:[phone] SEC [place] [facility] No Information 5-200 9 Cope OD Giacomo. [address] , [address], [place], [address], [place]. tel:[phone] [facility], [address] [place] [address] [address], [place], [place], [address], [place] tel:[phone] [facility] No Information 1-200 8 Cope OD Giacomo. [address] , [address], [place], [facility], [place]. tel:[phone] [facility], [address] [place] [address] [address], [place], [place], [address], [place] tel:[phone] [facility] [place] No Information 4-200 8 Cope OD Giacomo. [address] , [address], [place], [facility], [place]. tel:[phone] [facility], [address] [place] [address] [address], [place], [place], [address], [place] tel:[phone] [facility] [place] No Information 9-200 8 Cope OD Giacomo. [address] , [address], [place], [address], [place]. tel:[phone] [facility], [address] [place] [address] [address], [place], [place], [address], [place] tel:[phone] [facility] No Information 4-200 8 Cope OD Giacomo. [address] , [address], [place], [address], [place]. tel:[phone] [facility], [address] [place] [address] [address], [place], [place], [address], [place] tel:[phone] [facility] No Information 1-200 7 Cope OD Giacomo. [address] , [address], [place], [facility], . tel:[phone] [facility], [address] [place] [address] [address], [place], [place], [address], tel:[phone] [facility] No Information Luis Enrique-0 3-200 7 Cope OD Giacomo. [address] [facility] [place] , [address], [place], [facility], . tel:[phone] [facility], [address] [place] [address] [address], [place], [place], [address], tel:[phone] [facility] [place] No Information Apr-0 3-200 7 Cope OD Giacomo. [facility] [place] , [address], [place], [facility], . tel:[phone] [facility], [address] [place] [address] [address], [place], [place], [address], tel:[phone] [facility] No Information Mar-2 1-200 7 Cope OD Giacomo. [address] [place], [place] [address]ate [place] , [address], [place], [facility], . tel:[phone] Family History Family Member Type Diagnosis Age At Onset No Information Payers Payer name Insurance type Covered democrat ID Authoriza tion(s) No Information Social History [...]
--- OUTSIDE RECORDS SUMMARY | 2009-12-22 19:00 | XMS_ITS | Continuity of Care Document ---
Author Organization [facility] Address [address] [place] [address] [address] [place] [address] Phone Care Team Providers Care Nut Threader Name Role Phone Cope OD, Giacomo Unavailable Unavailable Procedures Procedure Date Cntct Lens Hydrophil Bifocal Medical Tax Refraction Eye Exam & Treatment Cntct Lens Hydrophil Bifocal Digital Union Contact Lens/es Other Type Digital Union CL Replacement - Vistakon Disp W/BW Soft Digital Union Eye Exam & Treatment Refraction CL Replacement - Vistakon Disp W/BW Soft Digital Union CL Replacement - Vistakon Disp W/BW Soft Digital Union Eye Exam & Treatment Refraction CL Replacement - Vistakon Disp W/BW Soft Digital Union CL Replacement - Vistakon Disp W/BW Soft Digital Union CL Replacement - Vistakon Disp W/BW Soft Digital Union CL Replacement - Vistakon Disp W/BW Soft Sales Tax Eye Exam & Treatment Advance Directives Directive Yes / No Effective Date File Name No Information Encounters Encounter Description Practice Location Reason(s) For Visit Diagnoses Date Provider Providers Copied on Encounter [facility], [id number] [place] [address] [address], [place], [place], [id number], [place] tel:[phone] [facility] No Information Aug-1 9-201 0 Cope OD Giacomo. [facility] [address] , [address], [place], [place], [facility], [place]. tel:[phone] [facility], [address] [place] [address] [address], [place], [place], [id number], [place] tel:[phone] [facility] No Information Aug-0 4-201 0 Cope OD Giacomo. [facility] [address] , [address], [place], [place], [facility], [place]. tel:[phone] [facility], [address] [place] [address] [address], [place], [place], [id number], [place] tel:[phone] [facility] No Information Jul-1 8-201 0 Cope OD Giacomo. [facility] , [address], [place], [place], [facility], [place]. tel:[phone] [facility], [address] [place] [address] [address], [place], [place], [id number], [place] tel:[phone] [facility] No Information Mar-2 4-200 9 Cope OD Giacomo. [address] [place], [place] [address]ate Center , [address], [place], [place], [facility], [place]. tel:[phone] [facility], [address] [place] [address] [address], [place], [place], [id number], [place] tel:[phone] [facility] No Information Nov-3 0-200 9 Cope OD Giacomo. [address] [place], [place] [address]ate Center , [address], [place], [place], [facility], [place]. tel:[phone] [facility], [address] [place] [address] [address], [place], [place], [id number], [place] tel:[phone] [facility] [place] [facility] No Information 5-200 9 Cope OD Giacomo. [address] , [address], [place], [address], [place]. tel:[phone] [facility], [address] [place] [address] [address], [place], [place], [id number], [place] tel:[phone] [facility] No Information 1-200 8 Cope OD Giacomo. [address] , [address], [place], [facility], [place]. tel:[phone] [facility], [address] [place] [address] [address], [place], [place], [id number], [place] tel:[phone] [facility] [place] No Information 4-200 8 Cope OD Giacomo. [address] , [address], [place], [facility], [place]. tel:[phone] [facility], [address] [place] [address] [address], [place], [place], [id number], [place] tel:[phone] [facility] [place] No Information 9-200 8 Cope OD Giacomo. [address] , [address], [place], [address], [place]. tel:[phone] [facility], [address] [place] [address] [address], [place], [place], [id number], [place] tel:[phone] [facility] No Information 4-200 8 Cope OD Giacomo. [address] , [address], [place], [address], [place]. tel:[phone] [facility], [address] [place] [address] [address], [place], [place], [id number], [place] tel:[phone] [facility] No Information 1-200 7 Cope OD Giacomo. [address] , [address], [place], [facility], . tel:[phone] [facility], [address] [place] [address] [address], [place], [place], [id number], tel:[phone] [facility] No Information Luis Enrique-0 3-200 7 Cope OD Giacomo. [address] [facility] [place] , [address], [place], [facility], . tel:[phone] [facility], [address] [place] [address] [address], [place], [place], [id number], tel:[phone] [facility] [place] No Information Apr-0 3-200 7 Cope OD Giacomo. [facility] [place] , [address], [place], [facility], . tel:[phone] [facility], [address] [place] [address] [address], [place], [place], [id number], tel:[phone] [facility] No Information Mar-2 1-200 7 Cope OD Giacomo. [address] [place], [place] [address] , [address], [place], [place], [facility], . tel:[phone] Family History Family Member Type Diagnosis Age [...]
--- NOTE | ~2025-02-18 | XR_ITS ---
XR knee RT 3V INDICATION: pain . COMPARISON: None. FINDINGS: Frontal, lateral and oblique views of the right knee demonstrate no acute fracture or dislocation. There is no joint effusion. Is mild degenerative changes with joint space narrowing. IMPRESSION: Radiographic examination of the right knee demonstrates no acute fracture or dislocation. Reviewed, dictated and finalized at location S. IMPRESSION: Radiographic examination of the right knee demonstrates no acute fracture or di slocation.
--- NOTE | ~2025-02-18 | XR_ITS ---
XR knee LT 3V INDICATION: pain . COMPARISON: None. FINDINGS: Frontal, lateral and oblique views of the left knee demonstrate no acute fracture or dislocation. There is no joint effusion. Degenerative changes with joint space narrowing. IMPRESSION: Radiographic examination of the left knee demonstrates no acute fracture or dislocation. Reviewed, dictated and finalized at location S. IMPRESSION: Radiographic examination of the left knee demonstrates no acute fracture or dis location.
--- OUTSIDE RECORDS SUMMARY | 2025-02-18 18:59 | XMS_ITS ---
Author Organization [facility] Address [address] [place] [address] Phone Care Team Providers Care Promos Executive Producer Name Role Phone JHON MORRIS M.D. Primary Care Provider [phone] JHON MORRIS MD [phone] Plan of Treatment No Plan of Treatment Recorded Assessments Includes: Assessments for all patient encounters No Assessments Recorded Medical Equipment - Implanted Devices Includes: Current and historical Devices No Medical Equipment Recorded Medications Administered Includes: Administered Medications in patient's chart No Administered Medications Recorded Results Includes: Results from 02/19/2024 through 02/18/2025 No Results Recorded For Specified Dates History of Present Illness History of Present Illness not supported for this document type No History of Present Illness Recorded Social History No Social History Recorded - Smoking Status Unknown Medical History Includes: Medical History in patient's chart No Medical History Recorded Family History Includes: Family History in patient's chart No Family History Recorded Review of Systems Review of Systems not supported for this document type No Review of Systems Recorded Mental Status No Mental Status Recorded Functional Status No Functional Status Recorded Physical Exam Physical Exam not supported for this document type No Physical Exam Recorded Clinical Notes Includes: Signed Clinical Notes starting from 05/26/2022 No Clinical Notes Recorded
--- OUTSIDE RECORDS SUMMARY | 2025-02-18 18:59 | XMS_ITS | Clinical Summary ---
Author Organization [facility] Address [address] [place] [address] Care Team Providers Care Bowling Ball Grader And Marker Name Role Phone Unavailable Primary Care Provider Unavailabl e Source Comments [facility],non-owned Affiliates and Associated Physician Practices is amultiple site organization consisting of ambulatory clinics and hospital sitesin [place], [place], [place] and [place]. This disclosure is being madepursuant to the Care Everywhere program and may not contain all information available regarding this patient. 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
--- OUTSIDE RECORDS SUMMARY | 2025-02-18 18:59 | XMS_ITS | Clinical Summary ---
Author Organization [facility] Yaya mancia Trinonaelray Address [address] [place] [address] Care Team Providers Care Behavioral Geneticist Name Role Phone Nazanin Dawson MD Primary Care Provider [phone] Allergies Active Allergy Reactions Criticality Noted Date [...] 08/11/2012 Insurance MEDICARE PART A AND B [facility] Care Teams Behavioral Geneticist Relationship Specialty Start Date End Date Nazanin Dawson MD PCP - General Family Practice 10/06/22
--- OUTSIDE RECORDS SUMMARY | 2025-02-18 18:59 | XMS_ITS | Patient Health Record ---
Author Organization [facility] Address [address] [place] [address] Care Team Providers Care Pan Shover Name Role Phone Keena Snow Primary Care [...] 30 days 07/12/2020 Active Ergocalciferol 1.25 MG (82527 UT) 1 capsule Orally weekly; Duration: 90 days 07/13/2020 Active Problems Problem Type SNOMED Code ICD Code Onset Dates Problem Status W/U Status Risk Notes Problem Vitamin D deficiency (32955324) Vitamin D deficiency (E55.9) Active confirmed Problem Recurrent major depression in remission (05525548) Recurrent major depressive disorder, in partial remission (F33.41) Active confirmed Problem Type II diabetes mellitus without complication (824652882) Type 2 diabetes mellitus without complication, without [...] Date MEDICARE PART A [address] [place] [address] [id number] Nely Fitch Self - patient is the insured 1 [facility] [address] [place] [address] [phone] [id number] Nely Fitch Self - patient is the insured 1 Medical (General) History Medical History History ICD Code diabetic Degenerative disc disease Surgical History Surgery Date(Month/Year)
--- OUTSIDE RECORDS SUMMARY | 2025-02-18 19:00 | XMS_ITS | Clinical Summary ---
Author Organization [facility] [address] [facility] Address [facility] [place] [address] Care Team Providers Care Sawmill Worker Name Role Phone Lima Wang Primary Care Provider [phone]- [phone] Allergies Active Allergy Reactions Criticality Noted Date [...] (07/19/2022): Added automatically from request for surgery [id number] BMI 40.0-44.9, adult 05/23/2021 Assessment & Plan (05/23/2021 1:48 PM CALIFORNIA SEAMER): Obesity is unchanged. Discussed the patient's BMI. The BMI is above average. BMI management plan is completed. BMI Follow-up includes: nutrition counseling, exercise counseling and education provided. History of vasculitis 05/23/2021 Assessment & Plan (05/23/2021 1:47 PM CALIFORNIA SEAMER): Continue care same at this time Menopause 01/04/2021 Assessment & Plan (01/04/2021 11:47 AM CDT): bmd for osteoporosis screening Thrombocytopenia 01/04/2021 Assessment & Plan (05/23/2021 1:46 PM CALIFORNIA SEAMER): labs entered, will notify patient of results as available Assessment & Plan (01/04/2021 11:47 AM CDT): Repeat cbc in the next 30d. We discussed hematology referral pending results. Edema of both legs 11/11/2020 Assessment & Plan (05/23/2021 1:47 PM CALIFORNIA SEAMER): Chronic and stable at this time Assessment & Plan (11/11/2020 12:34 PM CDT): Add lasix every day x 5 days due to edema Onychomycosis 11/11/2020 Assessment & Plan (05/23/2021 1:46 PM CALIFORNIA SEAMER): Continue with care per podiatry Assessment & Plan (11/11/2020 12:34 PM CDT): Will refer to podiatry for further evaluation and treatment Chronic thumb pain, right 11/03/2020 Assessment & Plan (11/03/2020 5:03 PM CDT): Offered and advised referral to ortho, she declines at this time Obesity, morbid, BMI 40.0-49.9 09/06/2020 Assessment & Plan (05/23/2021 1:46 PM CALIFORNIA SEAMER): Obesity is unchanged. Discussed the patient's BMI. [...] 09/06/2020 Assessment & Plan (05/23/2021 1:47 PM [place]IFORNIA SEAMER): Fasting labs entered, will notify patient of [...] 09/06/2020 Assessment & Plan (05/23/2021 1:46 PM CALIFORNIA SEAMER): labs entered, will notify patient of results as available Episode of recurrent major depressive disorder 0 09/06/2020 Assessment & Plan (05/23/2021 1:47 PM CALIFORNIA SEAMER): Chronic, declines ssri/snri Assessment & Plan (12/28/2020 [...] 11/28/2021 Assessment & Plan (05/23/2021 1:47 PM CALIFORNIA SEAMER): She is going to consult with a technical analyst regarding living will/end of life care Obesity [...] sodium, heart healthy diet BMI 40.0-44.9, adult ([facility]) 09/06/2020 01/04/2021 Assessment & Plan (12/28/2020 8:48 [...] on file Legal Sex Female 10:39 AM CALIFORNIA SEAMER Gender Identity Not on file Sexual Orientation [...] Recently Relevant to Health Maintenance Insurance MEDICARE [facility] MEDICARE [facility] Care Teams Sawmill Worker Relationship Specialty Start Date End Date Kathleen, Lima Talia, PA PCP - General Electrical Maintenance Engineer 08/25/20
--- OUTSIDE RECORDS SUMMARY | 2025-02-18 19:00 | XMS_ITS | Data Portability ---
Author Organization [facility], [place] Address [address] [place] [address] Assessment No assessment recorded. Plan of Treatment Reminders Order Date Submit Date Provider Last Modified By Organization Details Last Modified Time Details Appointments None recorded. Lab None recorded. Referral primary care provider referral 2022 023 [email or web address] Not available 3 17:34:44 Procedures None recorded. Surgeries dilation and curettage with hysteroscop y (SURG) 2022 023 [facility], [address], [address], 3 13:18:00 Imaging MAMMO, screening, bilateral 2022 023 [facility], [address] [place] [address], [address], 3 05:01:10 Medication Orders None recorded. Patient TargetsNo targets recorded. Patient InstructionsNo instructions recorded. Reason for Referral Primary Care Provider Referr al for Adult health examination Referring Physician: Britney Bess, STERILE PROCESS TECH, Encounter Date: 05/24/2022 Results Created Date Observation Date Name Description Value Unit Range Abnormal Flag Note LastModifiedBy Organization Detail LastModifiedTime 06/27/19 23 06/27/2022 US, trans baron diaz No observ ation record ed. [address] [place] [address] [place] [address], [address], 06/27/2022 14:48:39 Result Notes None recorded. Procedures Surgical History Date Name Laterality Status Provider Name and Address Organization Details Recorded Time 06/27/19 23 DILATION AND CURETTAGE WITH HYSTEROSCOPY (SURG) completed Lexi Morgan [facility] 06/28/2022 10:34:03 Imaging Results None recorded. Procedure Notes None recorded. Medical Equipment None Reported. Allergies Allergen ID Allergen Name Allergen Category Reaction Reaction Severity Criticality Documentation Date Start Date Code Code System Note Provider Name and Address Organization Details Recorded Time codeine medicatio n Not available Not available Not available 05/24/2022 2670 RxNorm Dorcas Gutierrez null, [facility] 15:03:00 Medications Not known to be on any medication Vitals Date Recorded Systolic And Diastolic Provider Name and Address Organization Details Last Updated DateTime 05/24/2022 136/78 mm[Hg] Britney Bess DOMINGO- [address], [place], [address], [facility] 05/25/2022 11:49:09 Date Recorded Body height Body mass index (BMI) Body weight Provider Name and Address Organization Details Last Updated DateTime 05/24/2022 172.72 cm 40.4 kg/m2 730088.85 g Dorcas Gutierrez [facility] 05/24/2022 15:02:46 Date Recorded Body height Body mass index (BMI) Body weight Systolic And Diastolic Systolic And Diastolic Provider Name and Address Organization Details Last Updated DateTime 06/12/2022 172.72 cm 41.1 kg/m2 515283.9 4 g 163/76 mm[Hg] 142/80 mm[Hg] Gerri Orr [facility] 15:34:48 Date Recorded Body height Body mass index (BMI) Body weight Systolic And Diastolic Provider Name and Address Organization Details Last Updated DateTime 07/04/2022 172.72 cm 40.4 kg/m2 065608.57 g 182/79 mm[Hg] Sharmin Singh [facility] 07/04/2022 15:26:19 Social History Question Answer Notes LastModified by Organizat ion Details LastModified Time Tobacco Smoking Status Never Smoker Dorcas Gutierrez [facility] 05/24/2022 15:04:24 Are You Blind Or [...] by Organization Details LastModified Time Brother Malignant neoplasm of colon Not available 2022 15:03:39 Brother [...] ICD10 Code Diagnosis IMO Codes Diagnosis Note [id number] Britney Bess , [facility] [address] [address] 05/24/2022 14:43:15 05/25/2022 14:28:33 Postmenopausal bleeding 66025501 N95.0 Advised pt will contact her with [...] plan of care. Adult heal th examination [id number] Z00.00 Given suggestion for new PCP but unsure if they will take her insurance. Option to contact her insurance company & Screening mammography 24 366123 Z12.31 Instructed how to schedule this screening [id number] Tim Lee MD [place] [address] [address] 06/12/2022 15:02:13 06/13/2022 15:06:17 Postmenopausal bleeding 41473710 N95.0 76-year-ol d female postmenopa usal bleeding. We will do a hysterosco py D&C and ultrasound under anesthesia . She understand s risks, benefits, and alternativ es. She has completed the informed consent process is ready to proceed. [id number] Tim Lee MD [place] [address] [address] 06/28/2022 09:58:42 06/28/2022 10:00:23 [id number] Tim Lee MD [place] [address] [address] 07/04/2022 15:04:51 07/05/2022 11:23:16 Malignant neoplasm of uterus [id number] C55 76-year-ol d female with newly diagnosed [...] Name 07/03/2022 1 [place] Nely Pringleer [id number] Nely Fitch 07/06/2022 2 [place] 104 Nely Pringleer [id number] Nely Bringer Notes Date Note Type Note Provider Name and Address Organization Details Recorded Time 3 text/html Patient is a 76yo white postmenopausal female here today for PMB that started last sunday to present time.Sunday noticed only red spotting on zavy-npnHprydvuh-vwsqrc in a cup to see if it [...] chart Britney Bess DOMINGO- [address], [place], [address], [facility] 05/25/2022 11:58:34 3 text/html this patient [...] infection. Tim Lee MD [address], [place], [address], [facility] 06/12/2022 22:35:17 3 text/html 76-year-old female with newly diagnosed endometrial cancer. She had endometrial carcinoma [address] 1 on her endometrial biopsy. She had hysteroscopy D&C in the hospital. We discussed the results. She has referral to Gyne Onc. She is recovering normally. She has minimal bleeding. Tim Lee MD [address], [place], [address], [facility] 07/04/2022 22:28:49 OBGyn Episode No OBEpisode recorded.
[2025-02-18 19:24] VITALS: BP 147/64; PULSE 81; RESP 17; TEMP 36.8; O2SAT 100
--- OUTSIDE RECORDS SUMMARY | 2025-02-18 21:02 | XMS_ITS | Clinical Summary ---
Author Organization [facility] Address [address] [place] [address] Phone Care Team Providers Care Burial Vault Setter Name Role Phone JHON MORRIS MD Primary Care Provider [phone] Reason for Visit and Chief Complaint NEW PATIENT VISIT Plan of Treatment No Plan of Treatment Recorded Assessments Includes: Assessments from this encounter No Assessments Recorded Medical Equipment - Implanted Devices Includes: Current Devices No Medical Equipment Recorded Medications Administered Includes: Administered Medications from this encounter No Administered Medications Recorded Results Includes: Results discussed during this encounter No Results Recorded For Specified Dates History of Present Illness Includes: History of Present Illness from this encounter No History of Present Illness Recorded Social History No Social History Recorded - Smoking Status Unknown Medical History Includes: Medical History addressed during this encounter No Medical History Recorded Family History Includes: Family History addressed during this encounter No Family History Recorded Review of Systems Includes: Review of Systems from this encounter No Review of Systems Recorded Mental Status Includes: Mental Status from this encounter No Mental Status Recorded Functional Status Includes: Functional Status from this encounter No Functional Status Recorded Physical Exam Includes: Physical Exam from this encounter No Physical Exam Recorded Clinical Notes Includes: Clinical Notes from this encounter No Clinical Notes Recorded
--- OUTSIDE RECORDS SUMMARY | 2025-02-18 21:02 | XMS_ITS ---
Author Organization [facility] Address [address] [place] [address] Phone Care Team Providers Care Title Examiner Name Role Phone JHON MORRIS M.D. Primary Care Provider [phone] JHON MORRIS MD [phone] [...]
--- OUTSIDE RECORDS SUMMARY | 2025-02-18 21:02 | XMS_ITS | Clinical Summary ---
Author Organization [facility] Address [address] [place] [address] Care Team Providers Care Candy Maker Name Role Phone Unavailable Primary Care Provider Unavailabl e Source Comments [facility],non-owned Affiliates and Associated Physician Practices is amultiple site organization consisting of ambulatory clinics and hospital sitesin [place], [place], [place] and [place]. This disclosure is being madepursuant to the Care Everywhere program and may not contain all information available regarding this patient. Last updated 18.[facility] [employer] Allergies Active Allergy Reactions Criticality Noted Date [...] on file Legal Sex Female 4:24 AM ADVERTISING ASSISTANT MANAGER Gender Identity Not on file Sexual Orientation [...]
--- OUTSIDE RECORDS SUMMARY | 2025-02-18 21:02 | XMS_ITS ---
Care Plan - [facility] Created on: February 18, 2025 JORY SMITH : 1945 Sex: Female Author Organization [facility] Address [address] [place] [address] Phone Care Team Providers Care Senior Wealth Advisor Name Role Phone ALEXANDRA Pascual, JHON Barber Primary Care Provider [phone] JHON MORRIS MD [phone]
--- OUTSIDE RECORDS SUMMARY | 2025-02-18 21:02 | XMS_ITS ---
Care Plan - [facility] Created on: February 18, 2025 SARAH JORY : 1945 Sex: Female Author Organization [facility] Medical [facility] Address [address] [place] [address] Phone Care Team Providers Care Well Cleaner Name Role Phone ALEXANDRA CALLAHAN, JHON KERN Primary Care Provider
--- OUTSIDE RECORDS SUMMARY | 2025-02-18 21:02 | XMS_ITS | Clinical Summary ---
Author Organization [facility] [address] [facility] Address [facility] [place] [address] Care Team Providers Care Supervisor Metal Furniture Assembly Name Role Phone Lima Wang Primary Care Provider [phone]- [phone] Allergies Active Allergy Reactions Criticality Noted Date [...] (07/19/2022): Added automatically from request for surgery [id number] BMI 40.0-44.9, adult 05/23/2021 Assessment & Plan (05/23/2021 1:48 PM SENIOR NATIONAL ACCOUNT MANAGER): Obesity is unchanged. Discussed the patient's BMI. The BMI is above average. BMI management plan is completed. BMI Follow-up includes: nutrition counseling, exercise counseling and education provided. History of vasculitis 05/23/2021 Assessment & Plan (05/23/2021 1:47 PM SENIOR NATIONAL ACCOUNT MANAGER): Continue care same at this time Menopause 01/04/2021 Assessment & Plan (01/04/2021 11:47 AM CDT): bmd for osteoporosis screening Thrombocytopenia 01/04/2021 Assessment & Plan (05/23/2021 1:46 PM SENIOR NATIONAL ACCOUNT MANAGER): labs entered, will notify patient of results as available Assessment & Plan (01/04/2021 11:47 AM CDT): Repeat cbc in the next 30d. We discussed hematology referral pending results. Edema of both legs 11/11/2020 Assessment & Plan (05/23/2021 1:47 PM SENIOR NATIONAL ACCOUNT MANAGER): Chronic and stable at this time Assessment & Plan (11/11/2020 12:34 PM CDT): Add lasix every day x 5 days due to edema Onychomycosis 11/11/2020 Assessment & Plan (05/23/2021 1:46 PM SENIOR NATIONAL ACCOUNT MANAGER): Continue with care per podiatry Assessment & Plan (11/11/2020 12:34 PM CDT): Will refer to podiatry for further evaluation and treatment Chronic thumb pain, right 11/03/2020 Assessment & Plan (11/03/2020 5:03 PM CDT): Offered and advised referral to ortho, she declines at this time Obesity, morbid, BMI 40.0-49.9 09/06/2020 Assessment & Plan (05/23/2021 1:46 PM SENIOR NATIONAL ACCOUNT MANAGER): Obesity is unchanged. Discussed the patient's BMI. [...] 09/06/2020 Assessment & Plan (05/23/2021 1:47 PM SENIOR NATIONAL ACCOUNT MANAGER): Fasting labs entered, will notify patient of [...] 09/06/2020 Assessment & Plan (05/23/2021 1:46 PM SENIOR NATIONAL ACCOUNT MANAGER): labs entered, will notify patient of results as available Episode of recurrent major depressive disorder 0 09/06/2020 Assessment & Plan (05/23/2021 1:47 PM SENIOR NATIONAL ACCOUNT MANAGER): Chronic, declines ssri/snri Assessment & Plan (12/28/2020 [...] 11/28/2021 Assessment & Plan (05/23/2021 1:47 PM SENIOR NATIONAL ACCOUNT MANAGER): She is going to consult with a water quality tester regarding living will/end of life care Obesity [...] sodium, heart healthy diet BMI 40.0-44.9, adult ([facility]) 09/06/2020 01/04/2021 Assessment & Plan (12/28/2020 8:48 [...] on file Legal Sex Female 10:39 AM SENIOR NATIONAL ACCOUNT MANAGER Gender Identity Not on file Sexual [...] Recently Relevant to Health Maintenance Insurance MEDICARE [facility] MEDICARE [facility] Care Teams Supervisor Metal Furniture Assembly Relationship Specialty Start Date End Date Kathleen, Lima Talia, PA PCP - General Matlab Developer 08/25/20
--- OUTSIDE RECORDS SUMMARY | 2025-02-18 21:02 | XMS_ITS | Clinical Summary ---
Author Organization [facility] Yaya mancia Trinonaelray Address [address] [place] [address] Care Team Providers Care An/Syq 13 Nav/C2 Operator Name Role Phone Nazanin Dawson MD Primary Care Provider [phone]- [phone] Allergies Active Allergy Reactions Criticality Noted Date [...] 08/11/2012 Insurance MEDICARE PART A AND B [facility] Care Teams An/Syq 13 Nav/C2 Operator Relationship Specialty Start Date End Date Nazanin Dawson MD PCP - General Family Practice 10/06/22
--- OUTSIDE RECORDS SUMMARY | 2025-02-18 21:02 | XMS_ITS ---
Author Organization [facility] Address [address] [place] [address] Phone Care Team Providers Care Aircraft Part Assembler Name Role Phone ALEXANDRA CALLAHAN, JHON KERN Primary Care Provider [phone] Plan of Treatment No Plan of Treatment [...]
[2025-02-18] MEDS: ACETAMINOPHEN 500 MG TABLET 1000 MG PO (21:29)
--- NOTE | 2025-02-18 22:36 | ED_ITS ---
HPI - Extremity Problem General Chief complaint: Extremity Problem,Nontraumatic Stated complaint: knee pain Time Seen by Provider: 02/18/25 20:11 Source: patient Mode of arrival: EMS Limitations: no limitations History of Present Illness HPI Narrative: Patient is a 79-year-old female who presents the ED via EMS with report of bilateral knee pain. Patient reports she was recently cleaning out her mother's old house and was moving boxes and lifting heavier objects then she should have been. She went to the grocery store today and began having some pain throughout her knees. Was walking out to her car and states her knees gave out on her due to the pain. She was lowered to the ground by her friend. She did not fall. Denies any injury from the fall. Denies head injury or LOC. EMS then brought patient here. Patient denies significant pain currently. Typically takes Tylenol for pain. She uses a cane for assistance with ambulation. Related Data Home Medications ?Medication ?Instructions ?Recorded ?Confirmed ?Last Taken ?Type cholecalciferol (vitamin D3) 125 125 mcg PO DAILY ##0 02/23/24 12/26/24 Unknown History mcg (5,000 unit) tablet Allergies Allergy/AdvReac Type Severity Reaction Status Date / Time codeine Allergy Severe Muscle Pain Verified 12/25/24 23:34 Review of Systems Review of Systems: All systems reviewed & are unremarkable except as noted in HPI. 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 She has now completed adjuvant whole pelvic radiation therapy delivered between 10/30/2022 and 12/07/2022. Status post total hysterectomy Diabetes Morbid obesity Surgical History Surgical History Status post total hysterectomy and bilateral salpingo-oophorectomy Social History Social History Smoking status: Never smoker Second hand tobacco smoke exposure: No Alcohol intake: never Substance use: never Substance use type: does not use Do You Feel Safe in your Home?: Yes Lack of Transportation: No Lack of Food: Never True Current Housing: I Have Housing Concerned About Future Housing: No Difficulty Paying Gas/Electric Bills: No Difficulty Paying for Meds: No Currently Unemployed: No Education: Master's Degree or Higher Difficulty w/ Childcare or Family Care: No Living arrangements: alone Occupation/Education: retired Gender identity (if verbalized by the patient): Female Sexual Orientation (if Verbalized by the Patient): Straight or Heterosexual Spiritual care concerns: No Exam Narrative: GENERAL: Well appearing, morbidly obese with BMI of 42.1, non-toxic, in no acute distress. HEAD: Normocephalic, atraumatic. RESPIRATORY: Airway patent, respirations nonlabored. CARDIOVASCULAR: Regular rate and rhythm without murmurs, rubs, or gallops. Pedal pulses intact and easily palpable MUSCULOSKELETAL: Moves all extremities. No gross deformities. Minimal swelling throughout jeronimo knees, minimal tenderness. Small hematoma to L medial urbina which patient reports is from injury a few weeks. SKIN: Warm, dry, normal color. NEURO: A&O X3. Speech clear. Cranial nerves II-XII grossly intact. Steady gait. No ataxic movements. PSYCHIATRIC: Appropriate mood and affect. Normal interaction. Course Vital Signs Vital signs: Vital Signs Temperature 98.2 F 02/18/25 19:24 Pulse Rate 81 02/18/25 19:24 Respiratory Rate 17 02/18/25 19:24 Blood Pressure 147/64 H 02/18/25 19:24 Pulse Oximetry 100 02/18/25 19:24 Oxygen Delivery Room Air 02/18/25 19:24 Temperature 98.2 F 02/18/25 19:24 Pulse Rate 81 02/18/25 19:24 Respiratory Rate 17 02/18/25 19:24 Blood Pressure 147/64 H 02/18/25 19:24 Pulse Oximetry 100 02/18/25 19:24 Oxygen Delivery Room Air 02/18/25 19:24 MDM - Extremity (Nontraumatic) MDM Narrative Medical decision making narrative: Patient?s injury is consistent with musculoskeletal etiology. No signs of neurologic or vascular compromise on physical examination. Compartments are soft without signs of compartment syndrome. XR bilateral knees without acute fracture or dislocation, no joint effusion bilaterally. Pain is consistent with knee strain. Patient does admit to increased/strenuous physical activity recently. Patient given Tylenol in the ED. She is feeling improved. Able to ambulate. States she has a walker at home that she can also use. Patient is felt to be stable for discharge home and further outpatient management and treatment. Recommended close follow-up with PCP for further evaluation. Discussed rice therapy, return precautions. Patient in agreement plan. Discharged in stable condition. Medical Records Attestation: I reviewed the patient's medical records. Imaging Data Attestation: I personally reviewed and interpreted this imaging study as follows: Radiologist's impression: ITS Impressions Knee X-Ray 02/18/25 21:26 IMPRESSION: Radiographic examination of the left knee demonstrates no acute fracture or dislocation. Knee X-Ray 02/18/25 21:27 IMPRESSION: Radiographic examination of the right knee demonstrates no acute fracture or dislocation. Discharge Plan Discharge Clinical Impression: Bilateral knee pain Qualifiers: Chronicity: acute Qualified Code(s): M25.561 - Pain in right knee Patient Disposition: Home Condition: Stable Instructions: Antibiotic Form, Knee Sprain (ED), P.R.I.C.E. Treatment (ED) Additional Instructions: Recommend rest, ice to knees, elevation of legs. Recommend Tylenol as needed for pain. Follow-up with your primary care doctor for further evaluation. Return to the ED if you experience worsening or severe pain, fall or injury, numbness, swelling throughout legs, or any other symptoms of concern. Patient Language: Romanian Prescriptions: No Action cholecalciferol (vitamin D3) 125 mcg (5,000 unit) Tablet 125 mcg PO DAILY Qty: 0 cephalexin 500 mg capsule 500 mg PO Q8H Qty: 21 0RF acetaminophen 500 mg Tablet 500 mg PO Q6-12H PRN (Reason: Pain) Qty: 30 0RF Follow-up/Referrals: Yosi Temple MD [Primary Care Provider, Family Practice] Time of Disposition: 22:37
[2025-02-18 23:00] VITALS: BP 143/66; PULSE 77; RESP 19; O2SAT 99
== END 2025-02-18 23:47 | disposition home or self-care (01) ==
PROVIDERS: Emergency Provider Physician Assistant; PCP Emergency Medicine
DX: M25.562 Pain in left knee (principal); M25.561 Pain in right knee; E11.9 Type 2 diabetes mellitus without complications; E66.01 Morbid (severe) obesity due to excess calories; Z68.41 Body mass index [BMI] 40.0-44.9, adult; Z85.42 Personal history of malignant neoplasm of other parts of uterus; Z92.3 Personal history of irradiation; Z90.710 Acquired absence of both cervix and uterus; Z90.722 Acquired absence of ovaries, bilateral; Z90.79 Acquired absence of other genital organ(s)
CPT/HCPCS: 73562; 99284; A9270

== ENCOUNTER 2025-04-15 07:21 | Inpatient (IN) | payer MEDICARE, BC, SELFPAY ==
[2025-04-15 07:24] VITALS: BP 177/74; PULSE 93; RESP 16; TEMP 36.1; O2SAT 100
[2025-04-15 08:46] VITALS: BP 144/63; PULSE 77; RESP 18; O2SAT 99
[2025-04-15] MEDS: SODIUM CHLORIDE 0.9% IV 500 ML 999 ML IV CONT (09:20)
[2025-04-15 09:21] LABS: Hematocrit 34.9 % (37.0-47.0); Hemoglobin 10.4 g/dL (12.0-15.0); Immature Platelet Fraction Pct 3.7 % (0.9-11.2); Mean Corpuscular HGB Conc 29.8 g/dl (32-36); Mean Corpuscular Hemoglobin 24.6 pg (26-34); Mean Corpuscular Volume 82.5 fl (80-100); Platelet Count Result 94 k/mm3 (150-375); Red Blood Count 4.23 M/mm3 (4.2-5.4); White Blood Count 2.9 K/mm3 (4.5-10.0)
[2025-04-15] MEDS: KETOROLAC 30 MG/ML VIAL (*BKC) IV PUSH (09:22)
[2025-04-15 09:24] LABS: Add Urine Microscopic? YES; Appearance Urine Clear (Clear); Glucose Urine UA Negative (Negative); Leukocyte Esterase Ur 3+ LEU/UL (Negative); Nitrate Urine Negative (Negative); Non Pathogenic Casts 0-2; Specific Grav Ur 1.011 (1.001-1.035)
[2025-04-15 09:40] LABS: Alanine Aminotransferase 21 U/L (6-35); Albumin Level 3.4 g/dL (3.5-5.1); Alkaline Phosphatase 117 U/L (38-126); Anion Gap 2 mmol/L (4-12); Aspartate Amino Transferase 37 U/L (14-36); Bilirubin,Total 2.4 mg/dL (0.2-1.3); Blood Urea Nitrogen 11 mg/dL (7-17); Calcium 8.7 mg/dL (8.4-10.2); Carbon Dioxide 27 mmol/L (22-30); Chloride 106 mmol/L (98-107); Estimated CRCL calculation 93 ml/min; Estimated Glomerular Filt Rate > 60; Glucose 129 mg/dL (65-110); Lipase 83 U/L (23-300); Potassium 4.2 mmol/L (3.4-5.0); Sodium 135 mmol/L (137-145); Total Protein 7.4 g/dL (6.3-8.2)
[2025-04-15 10:21] LABS: Basophils Absolute Manual 0.05 K/mm3 (0.0-0.1); Basophils Percent Manual 2 % (0-1); Lymphocytes Absolute Manual 0.55 K/mm3 (1.1-4.5); Lymphocytes Percent Manual 19.0 % (18-44); Monocytes Absolute Manual 0.60 K/mm3 (0.1-0.90); Monocytes Percent Manual 21 % (3-9); Neutrophils Percent Manual 58 % (46-73); Total Cells Counted 100
[2025-04-15 10:24] LABS: Anisocytosis 1+; Schistocytes None Seen
[2025-04-15 10:25] LABS: Hypochromasia 1+
--- NOTE | 2025-04-15 12:11 | ED_ITS ---
HPI - General Adult General Chief complaint: Back Pain/Injury Stated complaint: lower back pain Time Seen by Provider: 04/15/25 07:34 History of Present Illness HPI narrative: Patient is a 79-year-old female who presents ER for low back pain. Reports chronic back pain but it worsened today. Due to her chronic back pain she sits in the front seat of her car though she has to home she could be living in. Upon arrival here patient defecated herself and was unable to move around her cyst in cleaning. She reports she had some mild abdominal cramping. She has had no known trauma to her back. She does also have some pressure ulcers to her lower legs. Related Data Home Medications ?Medication ?Instructions ?Recorded ?Confirmed ?Last Taken ?Type cholecalciferol (vitamin D3) 125 125 mcg PO DAILY ##0 02/23/24 04/15/25 Unknown History mcg (5,000 unit) tablet Allergies Allergy/AdvReac Type Severity Reaction Status Date / Time codeine Allergy Severe Muscle Pain Verified 04/15/25 16:15 Review of Systems 2 Review of Systems: All systems reviewed & are unremarkable except as noted in HPI and below Constitutional: Constitutional: Reports no additional constitutional complaints Cardiovascular: Cardiovascular: Reports no additional cardiovascular complaints Respiratory: Respiratory: Reports no additional respiratory complaints Gastrointestinal: Gastrointestinal: Reports no additional gastrointestinal complaints Musculoskeletal: Musculoskeletal: Reports no additional musculoskeletal complaints [facility] Past Medical History Medical History Accident due to mechanical fall without injury Generalized edema Uterine cancer stage T2 N0(i+)sn M0, 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 She has now completed adjuvant whole pelvic radiation therapy delivered between 10/30/2022 and 12/07/2022. Status post total hysterectomy Diabetes Morbid obesity Surgical History Surgical History Status post total hysterectomy and bilateral salpingo-oophorectomy Social History Social History Smoking status: Never smoker Second hand tobacco smoke exposure: No Alcohol intake: never Substance use: never Substance use type: does not use Lack of Transportation: No Lack of Food: Never True Current Housing: I Have Housing Concerned About Future Housing: No Difficulty Paying Gas/Electric Bills: No Difficulty Paying for Meds: No Currently Unemployed: No Education: Master's Degree or Higher Difficulty w/ Childcare or Family Care: No Living arrangements: alone Occupation/Education: retired Gender identity (if verbalized by the patient): Female Sexual Orientation (if Verbalized by the Patient): Straight or Heterosexual Spiritual care concerns: No Exam 2 Narrative: GENERAL: Unkempt-appearing, morbidly obese, and in no acute distress. HEAD: Normocephalic, atraumatic. ENT: Mucous membranes moist. NECK: Supple. CHEST: Clear to auscultation. No respiratory distress. HEART: Regular rate and rhythm. Normal peripheral pulses. ABDOMEN: Soft, nontender, nondistended. EXTREMITIES: Normal range of motion. No edema. SKIN: Warm, dry, stage II decubitus ulcers to the posterior aspects of the thighs bilaterally. NEURO: Alert and oriented x3. PSYCH: Normal mood and affect. Course Course Emergency Course: Patient is not able to ambulate very well independently uses a walker and 2 people assisting. She may be acutely weekend by gastroenteritis given incontinence of stool. Admit for observation. Patient also with UTI and receive IV he ceftriaxone. Vital Signs Vital signs: Vital Signs Temperature 97.0 F L 04/15/25 07:24 Pulse Rate 93 04/15/25 07:24 Respiratory Rate 16 04/15/25 07:24 Blood Pressure 177/74 H 04/15/25 07:24 Pulse Oximetry 100 04/15/25 07:24 Oxygen Delivery Room Air 04/15/25 07:24 Temperature 99 F 04/15/25 16:08 Pulse Rate 90 04/15/25 16:08 Respiratory Rate 18 04/15/25 16:08 Blood Pressure 157/69 H 04/15/25 16:08 Pulse Oximetry 100 04/15/25 16:08 Oxygen Delivery Room Air 04/15/25 07:24 [facility] Differential Diagnosis Differential Diagnosis: Chronic pain, back strain, vertebral fracture gastroenteritis, sepsis, UTI Lab Data [facility] Lab Attestation statement: I personally reviewed the patient's lab results. 04/15/25 09:10 04/15/25 09:10 Labs: Lab Results 04/15/25 Range/Units 09:10 WBC 2.9 L (4.5-10.0) K/mm3 RBC 4.23 (4.2-5.4) M/mm3 Hgb 10.4 L (12.0-15.0) g/dL Hct 34.9 L (37.0-47.0) % MCV 82.5 (80-100) fl MCH 24.6 L (26-34) pg MCHC 29.8 L (32-36) g/dl RDW 21.0 H (11.5-14.5) % Plt Count 94 L D (150-375) k/mm3 MPV 10.0 (7.4-10.4) fl Immature Gran % (Auto) Not Reportable Neut % (Auto) Not Reportable Lymph % (Auto) Not Reportable [place] % (Auto) Not Reportable Eos % (Auto) Not Reportable Baso % (Auto) Not Reportable Lymph # (Auto) Not Reportable [place] # (Auto) Not Reportable Eos # (Auto) Not Reportable Baso # (Auto) Not Reportable Abs Immat Gran (auto) Not Reportable Absolute Neuts (auto) Not Reportable Absolute Nucleated RBC Not Reportable Total Counted 100 Neutrophils % (Manual) 58 (46-73) % Band Neutrophils % Not Reportable Lymphocytes % (Manual) 19.0 (18-44) % Monocytes % (Manual) 21 H (3-9) % Basophils % (Manual) 2 H (0-1) % Nucleated RBC % Not Reportable Abs Lymphs (Manual) 0.55 L (1.1-4.5) K/mm3 Abs Monocytes (Manual) 0.60 (0.1-0.90) K/mm3 Abs Basophils (Manual) 0.05 (0.0-0.1) K/mm3 Atypical Lymphocytes Present Platelet Estimate Decreased (Adequate) % Immature Plt Fraction 3.7 (0.9-11.2) % Hypochromasia 1+ Anisocytosis 1+ Schistocytes None seen Sodium 135 L (137-145) mmol/L Potassium 4.2 (3.4-5.0) mmol/L Chloride 106 (98-107) mmol/L Carbon Dioxide 27 (22-30) mmol/L Anion Gap 2 L (4-12) mmol/L BUN 11 D (7-17) mg/dL Creatinine 0.61 L (0.7-1.0) mg/dL Estim Creat Clear Calc 93 ml/min Estimated GFR > 60 (59 - ) Glucose 129 H (65-110) mg/dL Calcium 8.7 (8.4-10.2) mg/dL Total Bilirubin 2.4 H (0.2-1.3) mg/dL AST 37 H (14-36) U/L ALT 21 (6-35) U/L Alkaline Phosphatase 117 (38-126) U/L Total Protein 7.4 (6.3-8.2) g/dL Albumin 3.4 L (3.5-5.1) g/dL Lipase 83 (23-300) U/L Urine Color Yellow (Yellow) Urine Appearance Clear (Clear) Urine pH 7.5 (5.0-9.0) Ur Specific [place] 1.011 (1.001-1.035) Urine Protein Negative (Negative) mg/dL Urine Glucose (UA) Negative (Negative) mg/dL Urine Ketones Negative (Negative) mg/dL Ur Blood (Man) 2+ H (Negative) Urine Nitrate Negative (Negative) Urine Bilirubin Negative (Negative) Urine Urobilinogen 1.0 (<2.0) mg/dL Leukocyte Esterase Rfl 3+ H (Negative) JAYNA/UL Urine RBC 6-10 H (0-2) /hpf Urine WBC 11-20 H (0-3) /hpf Ur Squamous Epith Cells None seen (Few) /hpf Urine Bacteria 3+ H /hpf Urine Casts 0-2 Discharge Plan Discharge Clinical Impression: Pressure sore, Acute UTI, Gastroenteritis Patient Disposition: Still a Patient Condition: Stable
[2025-04-15] MEDS: cefTRIAXone 1 GM in SODIUM CHLORIDE 0.9% IV 50 ML 100 ML IVPB (13:45)
[2025-04-15 13:46] VITALS: BP 159/65; PULSE 78; RESP 19; O2SAT 100
[2025-04-15] MEDS: SODIUM CHLORIDE 0.9% IV 1,000 ML 125 ML IV CONT (15:10)
[2025-04-15 15:17] VITALS: BP 158/78; PULSE 81; RESP 17; O2SAT 99
--- NOTE | 2025-04-15 15:18 | WPCEDHO ---
ED Hand Off Checklist All vitals saved:yes IV Site documented:yes All med administrations documented:yes Triage Note Triage Note To ed via ems with c/o chronic 04/15/25 07:24 back pain. States she did a lot of walking yesterday and her legs gave out. Pt is covered in feces from head to toe. Allergies codeine Allergy (Severe, Verified 04/15/25 07:26) Muscle Pain Active Medications including assessments/comments Sodium Chloride (Normal Saline Iv) 1,000 mls @ 125 mls/hr IV CONT .Q8H ESTEBAN Last Admin: 04/15/25 15:10 Dose: 125 mls/hr Documented By: DAKOTA Infusion/Titration Document 04/15/25 15:10 DAKOTA (Rec: 04/15/25 15:10 DAKOTA [id number]) Intake IV Site Peripheral Access Right Antecubital Container Volume 1,000 Waste Amount 0 Dosing Infusion Rate 125 Cumulative Dose Not Applicable Increase/Decrease Started Elapsed Time Elapsed Time ( 0m minutes) Administered/Completed Medications Discontinued Medications Sodium Chloride (Normal Saline Iv) 500 mls @ 999 mls/hr IV CONT .Q31M STA Stop: 04/15/25 09:08 Last Infusion: 04/15/25 10:13 Dose: Infused Documented By: Admin: 04/15/25 09:20 Dose: 999 mls/hr Documented By: OCTAVIO Ceftriaxone Sodium 1 gm/ (Sodium Chloride) 50 mls @ 100 mls/hr IVPB ONCE STA Stop: 04/15/25 14:03 Last Infusion: 04/15/25 14:15 Dose: Infused Documented By: Admin: 04/15/25 13:45 Dose: 100 mls/hr Documented By: DAKOTA Ketorolac Tromethamine (Ketorolac 30 Mg/Ml Vial (*Bkc)) 30 mg IV PUSH ONCE STA Stop: 04/15/25 08:39 Last Admin: 04/15/25 09:22 Dose: 30 mg Documented By: OCTAVIO Interventions/Assessments IV / Saline Lock, Insert Start: 04/15/25 07:23 Freq: Status: Active Protocol: Document 04/15/25 09:21 OCTAVIO (Rec: 04/15/25 09:21 OCTAVIO [id number]) IV Assessment Peripheral Access Right Antecubital IV Catheter Access Initiated IV Insertion Date 04/15/25 IV Insertion Time 09:21 Catheter Gauge 20 IV Insertion 1 Attempts Ultrasound Used for No Placement IV Site Assessment WNL IV Care and WNL Maintenance PA: Musculoskeletal Assessment Start: 04/15/25 07:23 Freq: Status: Active Protocol: Document 04/15/25 08:37 OCTAVIO (Rec: 04/15/25 08:38 OCTAVIO [id number]) Musculoskeletal Assessment Back Musculoskeletal Joint Pain,Muscle Pain,Muscle Pain With Movement Symptoms Limb Description Normal Range of Motion Limited Range of Motion Strength Strong General Pt complains of back pain and stiffness. Musculoskeletal Comments Last Vital Signs Temperature 97.0 F L 04/15/25 07:24 Pulse Rate 81 04/15/25 15:17 Respiratory Rate 17 04/15/25 15:17 Pulse Oximetry 99 04/15/25 15:17 Blood Pressure 158/78 H 04/15/25 15:17 Blood Pressure Mean 104 04/15/25 15:17 Blood Pressure Position Sitting 04/15/25 15:17 Oxygen Delivery Room Air 04/15/25 07:24 Weight 129.2 kg 04/15/25 07:24 Last Result - Abnormals Only WBC 2.9 K/mm3 (4.5-10.0) L 04/15/25 09:10 Hgb 10.4 g/dL (12.0-15.0) L 04/15/25 09:10 Hct 34.9 % (37.0-47.0) L 04/15/25 09:10 MCH 24.6 pg (26-34) L 04/15/25 09:10 MCHC 29.8 g/dl (32-36) L 04/15/25 09:10 RDW 21.0 % (11.5-14.5) H 04/15/25 09:10 Plt Count 94 k/mm3 (150-375) L D 04/15/25 09:10 Monocytes % (Manual) 21 % (3-9) H 04/15/25 09:10 Basophils % (Manual) 2 % (0-1) H 04/15/25 09:10 Abs Lymphs (Manual) 0.55 K/mm3 (1.1-4.5) L 04/15/25 09:10 Sodium 135 mmol/L (137-145) L 04/15/25 09:10 Anion Gap 2 mmol/L (4-12) L 04/15/25 09:10 Creatinine 0.61 mg/dL (0.7-1.0) L 04/15/25 09:10 Glucose 129 mg/dL (65-110) H 04/15/25 09:10 Total Bilirubin 2.4 mg/dL (0.2-1.3) H 04/15/25 09:10 AST 37 U/L (14-36) H 04/15/25 09:10 Albumin 3.4 g/dL (3.5-5.1) L 04/15/25 09:10 Ur Blood (Man) 2+ (Negative) H 04/15/25 09:10 Leukocyte Esterase Rfl 3+ JAYNA/UL (Negative) H 04/15/25 09:10 Urine RBC 6-10 /hpf (0-2) H 04/15/25 09:10 Urine WBC 11-20 /hpf (0-3) H 04/15/25 09:10 Urine Bacteria 3+ /hpf H 04/15/25 09:10 Most Recent Suicide Severity Rating Suicide Severity Rating NO RISK INDICATED 04/15/25 07:24
--- NOTE | 2025-04-15 15:21 | PM.IMHP2 ---
H&P: HPI History of Present Illness Date/Time: 04/15/25 15:21 Chief Complaint: Weakness Narrative: 79-year-old female with a past medical history of frequent falls, diabetes, uterine cancer presents to the ED on 04/15/2025 with complaints of weakness and back pain. Patient states she walked a lot yesterday and her legs gave out. Patient states she mostly sits in the front seat of her car due to it being more comfortable. Patient covered in urine and stool from being unable to ambulate to bathroom. She sits in the car for an extended amount of time reading and listening to the radio. She states she ?sometimes? ambulates inside to go to bed. Denies living in the car and states she has a home. Patient noted to have redness to her sacrum from prolonged sitting and urine and stool skin contact. Denies fevers, chest pain, shortness a breath. Denies saddle anesthesia, loss of bowel bladder control, and denies numbness and tingling in her lower extremities. Patient had a fall on 02/23/2024 which resulted in compression fractures of T11 and L1. Patient denies having any history of back surgery. Patient has several ED visits and admissions due to falls and lower back pain. Initial vital signs 177/74, HR 93, respirations 16, afebrile and 100% on room air. Labs show baseline pancytopenia, sodium 135, anion gap 2, creatinine 0.61, glucose 129, total bilirubin 214, AST 37. UA with 2+ blood, 3+ leukocyte esterase, 6-10 RBC, 11-20 WBC, 3+ bacteria, negative nitrate. 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 She has now completed adjuvant whole pelvic radiation therapy delivered between 10/30/2022 and 12/07/2022. Status post total hysterectomy Diabetes Morbid obesity Surgical History Surgical History Status post total hysterectomy and bilateral salpingo-oophorectomy Social History Social History Smoking status: Never smoker Second hand tobacco smoke exposure: No Alcohol intake: never Substance use: never Substance use type: does not use Lack of Transportation: No Lack of Food: Never True Current Housing: I Have Housing Concerned About Future Housing: No Difficulty Paying Gas/Electric Bills: No Difficulty Paying for Meds: No Currently Unemployed: No Education: Master's Degree or Higher Difficulty w/ Childcare or Family Care: No Living arrangements: alone Occupation/Education: retired Gender identity (if verbalized by the patient): Female Sexual Orientation (if Verbalized by the Patient): Straight or Heterosexual Spiritual care concerns: No Meds Home Medications and Allergies Home Medications ?Medication ?Instructions ?Recorded ?Confirmed ?Type cholecalciferol (vitamin D3) 125 125 mcg PO DAILY ##0 02/23/24 04/15/25 History mcg (5,000 unit) tablet acetaminophen 500 mg tablet 500 mg PO Q6-12H PRN Pain #30 tabs 03/07/24 04/15/25 Rx Allergies Allergy/AdvReac Type Severity Reaction Status Date / Time codeine Allergy Severe Muscle Pain Verified 04/15/25 16:15 Vital Signs Vital Signs - 24 hr 04/15/25 07:24 04/15/25 08:46 04/15/25 13:46 Temperature 97.0 F L Pulse Rate 93 77 78 Respiratory Rate 16 18 19 Blood Pressure 177/74 H 144/63 H 159/65 H Pulse Oximetry 100 99 100 Oxygen Delivery Room Air 04/15/25 15:17 Temperature Pulse Rate 81 Respiratory Rate 17 Blood Pressure 158/78 H Pulse Oximetry 99 Oxygen Delivery Exam Narrative: GENERAL: Poor hygiene HEAD: Normocephalic, atraumatic. EYES: PERRLA. Conjunctivae clear. NOSE: Normal no drainage. THROAT: Pharynx clear, no exudate. NECK: Trachea midline. No adenopathy, no masses. RESPIRATORY: Airway patent, respirations nonlabored. CTA. CARDIOVASCULAR: Regular rate and rhythm BREASTS: Defer GASTROINTESTINAL: Abdomen is soft and nontender. No organomegaly. Bowel sounds normal in all quadrants. Obese GENITOURINARY: Defer MUSCULOSKELETAL: Moves all extremities. No gross deformities. SKIN: Warm, dry, normal color. See nursing notes for wound documentation to sacrum and bilateral posterior thighs NEURO: A&O X4. Speech clear PSYCHIATRIC: Normal interaction Results Labs Labs: Short CBC 04/15/25 Range/Units 09:10 WBC 2.9 L (4.5-10.0) K/mm3 Hgb 10.4 L (12.0-15.0) g/dL Hct 34.9 L (37.0-47.0) % Plt Count 94 L D (150-375) k/mm3 BMP 04/15/25 09:10 Sodium 135 L Potassium 4.2 Chloride 106 Carbon Dioxide 27 BUN 11 D Creatinine 0.61 L Glucose 129 H Calcium 8.7 Liver Function 04/15/25 Range/Units 09:10 Total Bilirubin 2.4 H (0.2-1.3) mg/dL AST 37 H (14-36) U/L ALT 21 (6-35) U/L Alkaline Phosphatase 117 (38-126) U/L Albumin 3.4 L (3.5-5.1) g/dL Urine 04/15/25 Range/Units 09:10 Urine Color Yellow (Yellow) Urine Appearance Clear (Clear) Urine pH 7.5 (5.0-9.0) Ur Specific [place] 1.011 (1.001-1.035) Urine Protein Negative (Negative) mg/dL Urine Glucose (UA) Negative (Negative) mg/dL Assessment and Plan Assessment and plan (1) Acute UTI: Code(s): N39.0 - Urinary tract infection, site not specified Status: Acute Assessment and Plan: UA positive for infection. Patient is asymptomatic. - UA with 2+ blood, 3+ leukocyte esterase, 6-10 RBC, 11-20 WBC, 3+ bacteria, negative nitrate. - UC pending - culture from January grew E coli susceptible to ceftriaxone - started on Ceftriaxone on 04/15 (2) Acute on chronic back pain: Code(s): M54.9 - Dorsalgia, unspecified; G89.29 - Other chronic pain Status: Chronic Assessment and Plan: compression fractures of T11 and L1 sustained in February of 2024 after a fall. Patient is allergic to codeine and uses Tylenol at home for back pain. -acetaminophen 650 mg p.o. q.4 hours p.r.n. (3) Diabetes: Qualifiers: Diabetes mellitus type: type 2 Diabetes mellitus nursing home insulin use: without nursing home use Code(s): E11.9 - Type 2 diabetes mellitus without complications Status: Chronic Assessment and Plan: Patient takes no diabetes medications at home and blood glucose has been stable here. - hypoglycemia protocol - POC blood glucose ACHS - home medication: None - correct regimen ordered: Low-dose sliding scale (4) Poor hygiene: Code(s): R46.0 - Very low level of personal hygiene Status: Chronic Assessment and Plan: Concerned that patient is unable to care for herself at with her frequent falls, weakness, and poor personal hygiene. -PT/OT consult -care coordination consult Plan Diet: Heart healthy, consistent carb DVT prophylaxis: SCDs lines/drains: PIV Fluids: 500 mL bolus in ED Code status: DNR Prior Studies I have reviewed the following patient records and this information was taken into consideration when formulating the assessment and plan.: previous labs, previous ER visits, previous hospitalizations and previous clinic visits Time Spent with Patient Time with patient: 45 - 74 minutes Hospitalist MIPS Advance Care Plan I have confirmed that the patient's Advanced Care Plan is present, code status is documented, or surrogate decision maker is listed in patient medical record.: Yes Medication Reconciliation I have utilized all available resources to obtain, update and review the patients current medications (includes all prescriptions, OTC, herbals, cannabis, and nutritional supplements).: Yes
--- NOTE | 2025-04-15 15:59 | ADMGEN ---
This patient, Nely Fitch, was admitted to [facility] Surg Room 331-01. Patient/family oriented to hospital policies and general routines including ID bracelet, bed and alarms, visiting hours, pain management, procedures, bathroom and other care routines, personal items, smoking policy, room service/diet, and visiting hours. Information on how to activate the Rapid Response Team has been discussed. Patient/Family are encouraged to report perceived risks to care and to ask questions if they do not understand what they are told or what they should do.
[2025-04-15 16:08] VITALS: BP 157/69; PULSE 90; RESP 18; TEMP 37.2; O2SAT 100
[2025-04-15 22:00] VITALS: BP 129/44; PULSE 92; RESP 18; TEMP 37; O2SAT 97
[2025-04-16] MEDS: SODIUM CHLORIDE 0.9% IV 1,000 ML 125 ML IV CONT ×3 (00:50→18:12)
[2025-04-16 06:00] VITALS: BP 127/46; PULSE 71; RESP 18; TEMP 36.2; O2SAT 99
[2025-04-16 06:28] LABS: Hematocrit 32.4 % (37.0-47.0); Hemoglobin 9.5 g/dL (12.0-15.0); Immature Platelet Fraction Pct 4.6 % (0.9-11.2); Mean Corpuscular HGB Conc 29.3 g/dl (32-36); Mean Corpuscular Hemoglobin 24.9 pg (26-34); Mean Corpuscular Volume 84.8 fl (80-100); Platelet Count Result 101 k/mm3 (150-375); Red Blood Count 3.82 M/mm3 (4.2-5.4); White Blood Count 2.3 K/mm3 (4.5-10.0)
[2025-04-16 07:00] LABS: Band Neutrophils Percent 2 % (0-6); Lymphocytes Absolute Manual 0.78 K/mm3 (1.1-4.5); Lymphocytes Percent Manual 34 % (18-44); Monocytes Absolute Manual 0.32 K/mm3 (0.1-0.90); Monocytes Percent Manual 14 % (3-9); Neutrophils Absolute Manual 1.19 K/mm3 (1.3-6.7); Neutrophils Percent Manual 50 % (46-73); Total Cells Counted 50
[2025-04-16 07:01] LABS: Hypochromasia 2+
[2025-04-16 07:02] LABS: Anion Gap 3 mmol/L (4-12); Anisocytosis 1+; Blood Urea Nitrogen 13 mg/dL (7-17); Calcium 8.1 mg/dL (8.4-10.2); Carbon Dioxide 22 mmol/L (22-30); Chloride 109 mmol/L (98-107); Estimated CRCL calculation 92 ml/min; Estimated Glomerular Filt Rate > 60; Glucose 113 mg/dL (65-110); Ovalocytes 1+; Potassium 4.2 mmol/L (3.4-5.0); Schistocytes None Seen; Sodium 134 mmol/L (137-145)
--- NOTE | 2025-04-16 07:30 | P.PNIM_ITS ---
Assessment and Plan Assessment and Plan (1) Acute UTI: Code(s): N39.0 - Urinary tract infection, site not specified Status: Acute Assessment and Plan: * UA positive for infection. Patient is asymptomatic. * UA with 2+ blood, 3+ leukocyte esterase, 6-10 RBC, 11-20 WBC, 3+ bacteria, negative nitrate. * UC pending * culture from January grew E coli susceptible to ceftriaxone * started on Ceftriaxone on 04/15 (2) Acute on chronic back pain: Code(s): M54.9 - Dorsalgia, unspecified; G89.29 - Other chronic pain Status: Chronic Assessment and Plan: * compression fractures of T11 and L1 sustained in February of 2024 after a fall * Patient is allergic to codeine and uses Tylenol at home for back pain * acetaminophen 650 mg p.o. q.4 hours p.r.n. * Lidoderm patches (3) Diabetes: Qualifiers: Diabetes mellitus care home insulin use: without technician terminal and repeater use Diabetes mellitus type: type 2 Code(s): E11.9 - Type 2 diabetes mellitus without complications Status: Chronic Assessment and Plan: * Patient takes no diabetes medications at home and blood glucose has been stable here. * hypoglycemia protocol * POC blood glucose ACHS * home medication: None * correct regimen ordered: Low-dose sliding scale (4) Poor hygiene: Code(s): R46.0 - Very low level of personal hygiene Status: Chronic Assessment and Plan: * Concerned that patient is unable to care for herself at with her frequent falls, weakness, and poor personal hygiene. * PT/OT consult * care coordination consult Plan Diet: Heart healthy, consistent carb DVT prophylaxis: SCDs lines/drains: PIV Fluids: 500 mL bolus in ED Code status: DNR Subjective Date/time seen: 04/16/25 07:30 Interval history: 79-year-old female with a past medical history of frequent falls, diabetes, uterine cancer presents to the ED on 04/15/2025 with complaints of weakness and back pain. 04/16/2025 Patient sitting comfortably at bedside during examination. Remains afebrile without leukocytosis. No major electrolyte abnormalities. Urine culture pending. PT/OT evals pending. No other concerns at this time, pt endorsing feeling much better overall. Review of Systems Review of Systems: All systems reviewed & are unremarkable except as noted in HPI and below Exam Narrative: GENERAL: Poor hygiene HEAD: Normocephalic, atraumatic. EYES: PERRLA. Conjunctivae clear. NOSE: Normal no drainage. THROAT: Pharynx clear, no exudate. NECK: Trachea midline. No adenopathy, no masses. RESPIRATORY: Airway patent, respirations nonlabored. CTA. CARDIOVASCULAR: Regular rate and rhythm BREASTS: Defer GASTROINTESTINAL: Abdomen is soft and nontender. No organomegaly. Bowel sounds normal in all quadrants. Obese GENITOURINARY: Defer MUSCULOSKELETAL: Moves all extremities. No gross deformities. SKIN: Warm, dry, normal color. See nursing notes for wound documentation to sacrum and bilateral posterior thighs NEURO: A&O X4. Speech clear PSYCHIATRIC: Normal interaction Objective Data Vital Signs Vital Signs: Vital Signs - 24 hr 04/15/25 08:46 04/15/25 13:46 04/15/25 15:17 Temperature Pulse Rate 77 78 81 Respiratory Rate 18 19 17 Blood Pressure 144/63 H 159/65 H 158/78 H Pulse Oximetry 99 100 99 04/15/25 16:08 04/15/25 22:00 Temperature 99 F 98.6 F Pulse Rate 90 92 Respiratory Rate 18 18 Blood Pressure 157/69 H 129/44 L Pulse Oximetry 100 97 Intake/Output Intake/Output: Intake & Output 04/13/25 04/14/25 04/15/25 04/16/25 23:59 23:59 23:59 23:59 Intake Total 1790 Output Total 100 Balance 1690 Meds/Results Medications: Active Medications Generic Name Dose Route Start Last Admin Trade Name Freq PRN Reason Stop Dose Admin Acetaminophen 650 mg 04/15/25 13:34 Acetaminophen 325 Mg Tablet PO Q4H PRN Mild Pain (1-3) or Fever Hydrocodone Bitart/Acetaminophen 1 tab 04/15/25 13:34 Hydrocodone/Acetaminophen (*Crx) 5-325 Mg Tablet PO Q4H PRN Pain Rated 4-6 Dextrose 12.5 gm 04/15/25 14:21 Dextrose 50% 25 Gm/50 Ml Syringe IV PUSH PRN PRN Hypoglycemia Protocol Glucagon 1 mg 04/15/25 14:21 Glucagon For Inj 1 Mg Vial IM PRN PRN Hypoglycemia Protocol Glucose 15 gm 04/15/25 14:21 Glucose Oral Gel 15 Gm Of Glucse In 37.5 Gm Tube PO PRN PRN Hypoglycemia Protocol Sodium Chloride 1,000 mls @ 125 mls/hr 04/15/25 13:35 04/16/25 00:50 Normal Saline Iv IV CONT 125 mls/hr .Q8H ESTEBAN Administration Ceftriaxone Sodium 1 gm/ 50 mls @ 100 mls/hr 04/16/25 09:00 Sodium Chloride IVPB QAM ESTEBAN Dextrose 1,000 mls @ 100 mls/hr 04/15/25 14:21 Dextrose 5% 1,000 Ml IVPB PRN PRN Hypoglycemia Protocol Insulin Aspart 2 - 5 units 04/15/25 17:00 04/15/25 17:02 Insulin Aspart (*Bkc) 100 Units/Ml SUB-Q Not Given TIDWM ESTEBAN Protocol Ondansetron HCl 4 mg 04/15/25 13:34 Ondansetron Inj 4 Mg/2 Ml Vial IV PUSH Q4H PRN Nausea Labs Labs: Laboratory Results - last 24 hr 04/15/25 04/15/25 04/15/25 09:10 16:44 20:12 WBC 2.9 L RBC 4.23 Hgb 10.4 L Hct 34.9 L MCV 82.5 MCH 24.6 L MCHC 29.8 L RDW 21.0 H Plt Count 94 L D MPV 10.0 Immature Gran % (Auto) Not Reportable Neut % (Auto) Not Reportable Lymph % (Auto) Not Reportable Barton % (Auto) Not Reportable Eos % (Auto) Not Reportable Baso % (Auto) Not Reportable Lymph # (Auto) Not Reportable Barton # (Auto) Not Reportable Eos # (Auto) Not Reportable Baso # (Auto) Not Reportable Abs Immat Gran (auto) Not Reportable Absolute Neuts (auto) Not Reportable Absolute Nucleated RBC Not Reportable Total Counted 100 Neutrophils % (Manual) 58 Band Neutrophils % Not Reportable Lymphocytes % (Manual) 19.0 Monocytes % (Manual) 21 H Basophils % (Manual) 2 H Nucleated RBC % Not Reportable Abs Neuts (Manual) Abs Lymphs (Manual) 0.55 L Abs Monocytes (Manual) 0.60 Abs Basophils (Manual) 0.05 Atypical Lymphocytes Present Platelet Estimate Decreased % Immature Plt Fraction 3.7 Hypochromasia 1+ Anisocytosis 1+ Ovalocytes Schistocytes None seen Sodium 135 L Potassium 4.2 Chloride 106 Carbon Dioxide 27 Anion Gap 2 L BUN 11 D Creatinine 0.61 L Estim Creat Clear Calc 93 Estimated GFR > 60 Glucose 129 H POC Capillary Glucose 110 H 141 H Calcium 8.7 Total Bilirubin 2.4 H AST 37 H ALT 21 Alkaline Phosphatase 117 Total Protein 7.4 Albumin 3.4 L Lipase 83 Urine Color Yellow Urine Appearance Clear Urine pH 7.5 Ur Specific [place] 1.011 Urine Protein Negative Urine Glucose (UA) Negative Urine Ketones Negative Ur Blood (Man) 2+ H Urine Nitrate Negative Urine Bilirubin Negative Urine Urobilinogen 1.0 Leukocyte Esterase Rfl 3+ H Urine RBC 6-10 H Urine WBC 11-20 H Ur Squamous Epith Cells None seen Urine Bacteria 3+ H Urine Casts 0-2 04/16/25 05:45 WBC 2.3 L RBC 3.82 L Hgb 9.5 L Hct 32.4 L MCV 84.8 MCH 24.9 L MCHC 29.3 L RDW 21.2 H Plt Count 101 L MPV 10.4 Immature Gran % (Auto) Not Reportable Neut % (Auto) Not Reportable Lymph % (Auto) Not Reportable Barton % (Auto) Not Reportable Eos % (Auto) Not Reportable Baso % (Auto) Not Reportable Lymph # (Auto) Not Reportable Barton # (Auto) Not Reportable Eos # (Auto) Not Reportable Baso # (Auto) Not Reportable Abs Immat Gran (auto) Not Reportable Absolute Neuts (auto) Not Reportable Absolute Nucleated RBC Not Reportable Total Counted 50 Neutrophils % (Manual) 50 Band Neutrophils % 2 Lymphocytes % (Manual) 34 Monocytes % (Manual) 14 H Basophils % (Manual) Nucleated RBC % Not Reportable Abs Neuts (Manual) 1.19 L Abs Lymphs (Manual) 0.78 L Abs Monocytes (Manual) 0.32 Abs Basophils (Manual) Atypical Lymphocytes Platelet Estimate Decreased % Immature Plt Fraction 4.6 Hypochromasia 2+ Anisocytosis 1+ Ovalocytes 1+ Schistocytes None seen Sodium 134 L Potassium 4.2 Chloride 109 H Carbon Dioxide 22 Anion Gap 3 L BUN 13 Creatinine 0.62 L Estim Creat Clear Calc 92 Estimated GFR > 60 Glucose 113 H POC Capillary Glucose Calcium 8.1 L Total Bilirubin AST ALT Alkaline Phosphatase Total Protein Albumin Lipase Urine Color Urine Appearance Urine pH Ur Specific [place] Urine Protein Urine Glucose (UA) Urine Ketones Ur Blood (Man) Urine Nitrate Urine Bilirubin Urine Urobilinogen Leukocyte Esterase Rfl Urine RBC Urine WBC Ur Squamous Epith Cells Urine Bacteria Urine Casts
[2025-04-16 08:20] VITALS: PULSE 71; RESP 18; O2SAT 99
[2025-04-16] MEDS: cefTRIAXone 1 GM in SODIUM CHLORIDE 0.9% IV 50 ML 100 ML IVPB (08:20)
[2025-04-16 14:10] VITALS: BP 136/46; PULSE 83; RESP 18; TEMP 36.2; O2SAT 99
[2025-04-16 22:00] VITALS: BP 134/56; PULSE 74; RESP 20; TEMP 37; O2SAT 99
[2025-04-17] MEDS: SODIUM CHLORIDE 0.9% IV 1,000 ML 125 ML IV CONT ×3 (02:15→18:12)
--- NOTE | 2025-04-17 08:13 | P.PNIM_ITS ---
Assessment and Plan Assessment and Plan (1) Acute UTI: Code(s): N39.0 - Urinary tract infection, site not specified Status: Acute Assessment and Plan: * UA positive for infection. Patient is asymptomatic. * UA with 2+ blood, 3+ leukocyte esterase, 6-10 RBC, 11-20 WBC, 3+ bacteria, negative nitrate. * UC - Gram (-) bacilli * culture from January grew E coli susceptible to ceftriaxone * started on Ceftriaxone on 04/15 - continue * PT/OT evals given generalized weakness * Recommend SNF * Will work with CC regarding placement (2) Acute on chronic back pain: Code(s): M54.9 - Dorsalgia, unspecified; G89.29 - Other chronic pain Status: Chronic Assessment and Plan: * compression fractures of T11 and L1 sustained in February of 2024 after a fall * Patient is allergic to codeine and uses Tylenol at home for back pain * acetaminophen 650 mg p.o. q.4 hours p.r.n. * Lidoderm patches (3) Diabetes: Qualifiers: Diabetes mellitus intermission coordinator insulin use: without long-term use Diabetes mellitus type: type 2 Code(s): E11.9 - Type 2 diabetes mellitus without complications Status: Chronic Assessment and Plan: * Patient takes no diabetes medications at home and blood glucose has been stable here. * hypoglycemia protocol * POC blood glucose ACHS * home medication: None * correct regimen ordered: Low-dose sliding scale (4) Poor hygiene: Code(s): R46.0 - Very low level of personal hygiene Status: Chronic Assessment and Plan: * Concerned that patient is unable to care for herself at with her frequent falls, weakness, and poor personal hygiene. * PT/OT consult - recommend SNF * care coordination consult Plan Diet: Heart healthy, consistent carb DVT prophylaxis: SCDs lines/drains: PIV Fluids: 500 mL bolus in ED Code status: DNR Subjective Date/time seen: 04/17/25 08:13 Interval history: 79-year-old female with a past medical history of frequent falls, diabetes, uterine cancer presents to the ED on 04/15/2025 with complaints of weakness and back pain. 04/17/2025 Patient sitting comfortably at bedside during examination. Urine culture shows growth of gram (-) bacilli. Remains afebrile. She states she feels as though she has regained much of her strength and feels much better today. Denies any CP, SOB, n/v or abd pain. Urine cultures still pending. No major electrolyte abnormalities. Will likely need further rehab - open to SNF. Will work with CC regarding placement. Review of Systems Review of Systems: All systems reviewed & are unremarkable except as noted in HPI and below Exam Narrative: GENERAL: Poor hygiene HEAD: Normocephalic, atraumatic. EYES: PERRLA. Conjunctivae clear. NOSE: Normal no drainage. THROAT: Pharynx clear, no exudate. NECK: Trachea midline. No adenopathy, no masses. RESPIRATORY: Airway patent, respirations nonlabored. CTA. CARDIOVASCULAR: Regular rate and rhythm BREASTS: Defer GASTROINTESTINAL: Abdomen is soft and nontender. No organomegaly. Bowel sounds normal in all quadrants. Obese GENITOURINARY: Defer MUSCULOSKELETAL: Moves all extremities. No gross deformities. SKIN: Warm, dry, normal color. See nursing notes for wound documentation to sacrum and bilateral posterior thighs NEURO: A&O X4. Speech clear PSYCHIATRIC: Normal interaction Objective Data Vital Signs Vital Signs: Vital Signs - 24 hr 04/16/25 08:20 04/16/25 09:49 04/16/25 11:40 Temperature Pulse Rate 71 Respiratory Rate 18 Blood Pressure Pulse Oximetry 99 Oxygen Delivery Room Air Room Air Room Air 04/16/25 14:10 04/16/25 22:00 Temperature 97.2 F L 98.6 F Pulse Rate 83 74 Respiratory Rate 18 20 Blood Pressure 136/46 L 134/56 L Pulse Oximetry 99 99 Oxygen Delivery Intake/Output Intake/Output: Intake & Output 04/14/25 04/15/25 04/16/25 04/17/25 23:59 23:59 23:59 23:59 Intake Total 1790 3130 1100 Output Total 100 1600 375 Balance 1690 1530 725 Meds/Results Medications: Active Medications Generic Name Dose Route Start Last Admin Trade Name Freq PRN Reason Stop Dose Admin Acetaminophen 650 mg 04/15/25 13:34 Acetaminophen 325 Mg Tablet PO Q4H PRN Mild Pain (1-3) or Fever Hydrocodone Bitart/Acetaminophen 1 tab 04/15/25 13:34 Hydrocodone/Acetaminophen (*Crx) 5-325 Mg Tablet PO Q4H PRN Pain Rated 4-6 Dextrose 12.5 gm 04/15/25 14:21 Dextrose 50% 25 Gm/50 Ml Syringe IV PUSH PRN PRN Hypoglycemia Protocol Glucagon 1 mg 04/15/25 14:21 Glucagon For Inj 1 Mg Vial IM PRN PRN Hypoglycemia Protocol Glucose 15 gm 04/15/25 14:21 Glucose Oral Gel 15 Gm Of Glucse In 37.5 Gm Tube PO PRN PRN Hypoglycemia Protocol Sodium Chloride 1,000 mls @ 125 mls/hr 04/15/25 13:35 04/17/25 02:15 Normal Saline Iv IV CONT 125 mls/hr .Q8H ESTEBAN Administration Ceftriaxone Sodium 1 gm/ 50 mls @ 100 mls/hr 04/16/25 09:00 04/16/25 08:50 Sodium Chloride IVPB Infused QAM ESTEBAN Infusion Dextrose 1,000 mls @ 100 mls/hr 04/15/25 14:21 Dextrose 5% 1,000 Ml IVPB PRN PRN Hypoglycemia Protocol Insulin Aspart 2 - 5 units 04/15/25 17:00 04/16/25 17:18 Insulin Aspart (*Bkc) 100 Units/Ml SUB-Q Not Given TIDWM ESTEBAN Protocol Lidocaine 1 patch 04/17/25 09:00 Lidocaine 5% Patch TRANSDERM DAILY ESTEBAN Ondansetron HCl 4 mg 04/15/25 13:34 Ondansetron Inj 4 Mg/2 Ml Vial IV PUSH Q4H PRN Nausea Labs Labs: Laboratory Results - last 24 hr 04/16/25 04/16/25 04/16/25 11:54 16:50 21:28 POC Capillary Glucose 108 H 84 111 H
[2025-04-17] MEDS: ACETAMINOPHEN 325 MG TABLET 650 MG PO (09:48)
[2025-04-17] MEDS: cefTRIAXone 1 GM in SODIUM CHLORIDE 0.9% IV 50 ML 100 ML IVPB (09:50)
[2025-04-17 12:51] LABS: Hematocrit 31.0 % (37.0-47.0); Hemoglobin 9.2 g/dL (12.0-15.0); Immature Granulocyte Percent A 1.1 % (0-0.5); Immature Platelet Fraction Pct 3.3 % (0.9-11.2); Lymphocytes Absolute Auto 0.51 K/mm3 (0.9-3.2); Mean Corpuscular HGB Conc 29.7 g/dl (32-36); Mean Corpuscular Hemoglobin 24.9 pg (26-34); Mean Corpuscular Volume 84.0 fl (80-100); Nucleated Red Blood Cells Absolute Auto 0.000 K/mm3 (0.0-0.012); Nucleated Red Blood Cells Perc 0.0 % (0.0-0.2); Platelet Count Result 116 k/mm3 (150-375); Red Blood Count 3.69 M/mm3 (4.2-5.4)
[2025-04-17 13:10] LABS: White Blood Count 1.8 K/mm3 (4.5-10.0)
[2025-04-17 13:16] LABS: Alanine Aminotransferase 21 U/L (6-35); Albumin Level 3.1 g/dL (3.5-5.1); Alkaline Phosphatase 106 U/L (38-126); Anion Gap 2 mmol/L (4-12); Anisocytosis 2+; Aspartate Amino Transferase 36 U/L (14-36); Bilirubin,Total 1.2 mg/dL (0.2-1.3); Blood Urea Nitrogen 11 mg/dL (7-17); Calcium 8.3 mg/dL (8.4-10.2); Carbon Dioxide 24 mmol/L (22-30); Chloride 110 mmol/L (98-107); Estimated CRCL calculation 87 ml/min; Estimated Glomerular Filt Rate > 60; Glucose 175 mg/dL (65-110); Hypochromasia 1+; Potassium 4.3 mmol/L (3.4-5.0); Schistocytes None Seen; Sodium 136 mmol/L (137-145); Total Protein 6.6 g/dL (6.3-8.2)
[2025-04-17 13:18] LABS: Ovalocytes 1+
[2025-04-17 14:00] VITALS: BP 164/61; PULSE 77; RESP 18; TEMP 37.1; O2SAT 100
[2025-04-17 22:00] VITALS: BP 144/72; PULSE 75; RESP 20; TEMP 36.5; O2SAT 100
[2025-04-18] MEDS: SODIUM CHLORIDE 0.9% IV 1,000 ML 125 ML IV CONT ×3 (02:32→16:44)
[2025-04-18 05:36] VITALS: BP 134/52; PULSE 95; RESP 18; TEMP 36.7; O2SAT 99
[2025-04-18 06:45] LABS: Hematocrit 31.2 % (37.0-47.0); Hemoglobin 9.1 g/dL (12.0-15.0); Immature Granulocyte Percent A 0.9 % (0-0.5); Immature Platelet Fraction Pct 3.6 % (0.9-11.2); Lymphocytes Absolute Auto 0.45 K/mm3 (0.9-3.2); Mean Corpuscular HGB Conc 29.2 g/dl (32-36); Mean Corpuscular Hemoglobin 24.8 pg (26-34); Mean Corpuscular Volume 85.0 fl (80-100); Nucleated Red Blood Cells Absolute Auto 0.000 K/mm3 (0.0-0.012); Nucleated Red Blood Cells Perc 0.0 % (0.0-0.2); Platelet Count Result 128 k/mm3 (150-375); Red Blood Count 3.67 M/mm3 (4.2-5.4); White Blood Count 2.1 K/mm3 (4.5-10.0)
[2025-04-18 07:04] LABS: Alanine Aminotransferase 19 U/L (6-35); Albumin Level 3.0 g/dL (3.5-5.1); Alkaline Phosphatase 106 U/L (38-126); Anion Gap 1 mmol/L (4-12); Aspartate Amino Transferase 35 U/L (14-36); Bilirubin,Total 1.2 mg/dL (0.2-1.3); Blood Urea Nitrogen 11 mg/dL (7-17); Calcium 8.0 mg/dL (8.4-10.2); Carbon Dioxide 25 mmol/L (22-30); Chloride 108 mmol/L (98-107); Estimated CRCL calculation 92 ml/min; Estimated Glomerular Filt Rate > 60; Glucose 113 mg/dL (65-110); Potassium 4.0 mmol/L (3.4-5.0); Sodium 134 mmol/L (137-145); Total Protein 6.6 g/dL (6.3-8.2)
[2025-04-18 07:15] LABS: Anisocytosis 2+; Hypochromasia 1+; Macrocytosis 1+ (NORMAL)
[2025-04-18 07:16] LABS: Ovalocytes Occasional
[2025-04-18 07:17] LABS: Schistocytes None Seen
[2025-04-18] MEDS: cefTRIAXone 1 GM in SODIUM CHLORIDE 0.9% IV 50 ML 100 ML IVPB (08:42)
--- NOTE | 2025-04-18 09:56 | P.PNIM_ITS ---
Assessment and Plan Assessment and Plan (1) Acute UTI: Code(s): N39.0 - Urinary tract infection, site not specified Status: Acute Assessment and Plan: * UA positive for infection. Patient is asymptomatic. * UA with 2+ blood, 3+ leukocyte esterase, 6-10 RBC, 11-20 WBC, 3+ bacteria, negative nitrate. * UC - Gram (-) bacilli * culture from January grew E coli susceptible to ceftriaxone * started on Ceftriaxone on 04/15 - continue * PT/OT evals given generalized weakness * Recommend SNF * Will work with CC regarding placement conitnue ceftriaxone-follwo urine c/s (2) Acute on chronic back pain: Code(s): M54.9 - Dorsalgia, unspecified; G89.29 - Other chronic pain Status: Chronic Assessment and Plan: * compression fractures of T11 and L1 sustained in February of 2024 after a fall * Patient is allergic to codeine and uses Tylenol at home for back pain * acetaminophen 650 mg p.o. q.4 hours p.r.n. * Lidoderm patches (3) Diabetes: Qualifiers: Diabetes mellitus assistant terminal manager insulin use: without assistant terminal manager use Diabetes mellitus type: type 2 Code(s): E11.9 - Type 2 diabetes mellitus without complications Status: Chronic Assessment and Plan: * Patient takes no diabetes medications at home and blood glucose has been stable here. * hypoglycemia protocol * POC blood glucose ACHS * home medication: None * correct regimen ordered: Low-dose sliding scale (4) Poor hygiene: Code(s): R46.0 - Very low level of personal hygiene Status: Chronic Assessment and Plan: * Concerned that patient is unable to care for herself at with her frequent falls, weakness, and poor personal hygiene. * PT/OT consult - recommend SNF * care coordination consult Plan Diet: Heart healthy, consistent carb DVT prophylaxis: SCDs lines/drains: PIV Fluids: 500 mL bolus in ED Code status: DNR Medical Record Review I have reviewed the following patient records and this information was taken into consideration when formulating the assessment and plan.: previous labs Time Spent With Patient Time with patient: 25 - 35 minutes Subjective Date/time seen: 04/18/25 09:56 Interval history: 79-year-old female with a past medical history of frequent falls, diabetes, uterine cancer presents to the ED on 04/15/2025 with complaints of weakness and back pain. 04/18/2025 Patient is seen and examined during morning rounds. She is resting in bed, reading [employer] book, in good spirit. She denies any acute complains. Urine culture shows growth of gram (-) bacilli. Denies chills or fever. Denies any CP, SOB, n/v or abd pain. Urine cultures still pending. No major electrolyte abnormalities. CC following regarding placement. Review of Systems Review of Systems: All systems reviewed & are unremarkable except as noted in HPI and below Exam Narrative: GENERAL: alert, oriented, in no distress HEAD: Normocephalic, atraumatic. EYES: PERRLA. Conjunctivae clear. NOSE: Normal no drainage. THROAT: Pharynx clear, no exudate. NECK: Trachea midline. No adenopathy, no masses. RESPIRATORY: Airway patent, respirations nonlabored. CTA. CARDIOVASCULAR: Regular rate and rhythm BREASTS: Defer GASTROINTESTINAL: Abdomen is soft and nontender. No organomegaly. Bowel sounds normal in all quadrants. Obese GENITOURINARY: Defer MUSCULOSKELETAL: Moves all extremities. No gross deformities. SKIN: Warm, dry, normal color. See nursing notes for wound documentation to sacrum and bilateral posterior thighs NEURO: A&O X4. Speech clear PSYCHIATRIC: Normal interaction Const: General: comfortable Objective Data Vital Signs Vital Signs: Vital Signs - 24 hr 04/17/25 14:00 04/17/25 22:00 04/18/25 05:36 Temperature 98.8 F 97.7 F 98.0 F Pulse Rate 77 75 95 Respiratory Rate 18 20 18 Blood Pressure 164/61 H 144/72 H 134/52 L Pulse Oximetry 100 100 99 Intake/Output Intake/Output: Intake & Output 04/15/25 04/16/25 04/17/25 04/18/25 23:59 23:59 23:59 23:59 Intake Total 1790 3130 3805.4 1768.8 Output Total 100 1600 2075 600 Balance 1690 1530 1730.4 1168.8 Meds/Results Medications: Active Medications Generic Name Dose Route Start Last Admin Trade Name Freq PRN Reason Stop Dose Admin Acetaminophen 650 mg 04/15/25 13:34 04/17/25 09:48 Acetaminophen 325 Mg Tablet PO 325 mg Q4H PRN Administration Mild Pain (1-3) or Fever Hydrocodone Bitart/Acetaminophen 1 tab 04/15/25 13:34 Hydrocodone/Acetaminophen (*Crx) 5-325 Mg Tablet PO Q4H PRN Pain Rated 4-6 Dextrose 12.5 gm 04/15/25 14:21 Dextrose 50% 25 Gm/50 Ml Syringe IV PUSH PRN PRN Hypoglycemia Protocol Glucagon 1 mg 04/15/25 14:21 Glucagon For Inj 1 Mg Vial IM PRN PRN Hypoglycemia Protocol Glucose 15 gm 04/15/25 14:21 Glucose Oral Gel 15 Gm Of Glucse In 37.5 Gm Tube PO PRN PRN Hypoglycemia Protocol Sodium Chloride 1,000 mls @ 125 mls/hr 04/15/25 13:35 04/18/25 08:41 Normal Saline Iv IV CONT 125 mls/hr .Q8H ESTEBAN Administration Ceftriaxone Sodium 1 gm/ 50 mls @ 100 mls/hr 04/16/25 09:00 04/18/25 08:42 Sodium Chloride IVPB 100 mls/hr QAM ESTEBAN Administration Dextrose 1,000 mls @ 100 mls/hr 04/15/25 14:21 Dextrose 5% 1,000 Ml IVPB PRN PRN Hypoglycemia Protocol Insulin Aspart 2 - 5 units 04/15/25 17:00 04/18/25 08:42 Insulin Aspart (*Bkc) 100 Units/Ml SUB-Q Not Given [facility] Protocol Lidocaine 1 patch 04/17/25 09:00 04/18/25 08:42 Lidocaine 5% Patch TRANSDERM Not Given DAILY [facility] Ondansetron HCl 4 mg 04/15/25 13:34 Ondansetron Inj 4 Mg/2 Ml Vial IV PUSH Q4H PRN Nausea Labs Labs: Laboratory Results - last 24 hr 04/17/25 04/17/25 04/17/25 12:45 17:12 19:42 WBC 1.8 L* RBC 3.69 L Hgb 9.2 L Hct 31.0 L MCV 84.0 MCH 24.9 L MCHC 29.7 L RDW 21.1 H Plt Count 116 L MPV 10.3 Immature Gran % (Auto) 1.1 H Neut % (Auto) 33.1 L Lymph % (Auto) 28.2 Heard % (Auto) 35.9 H Eos % (Auto) 1.1 Baso % (Auto) 0.6 Lymph # (Auto) 0.51 L Heard # (Auto) 0.7 H Eos # (Auto) 0.0 Baso # (Auto) 0.0 Abs Immat Gran (auto) 0.02 Absolute Neuts (auto) 0.6 L Absolute Nucleated RBC 0.000 Band Neutrophils % Not Reportable Nucleated RBC % 0.0 Platelet Estimate Slightly decreased % Immature Plt Fraction 3.3 Hypochromasia 1+ Anisocytosis 2+ Macrocytosis Ovalocytes 1+ Schistocytes None seen Sodium 136 L Potassium 4.3 Chloride 110 H Carbon Dioxide 24 Anion Gap 2 L BUN 11 Creatinine 0.66 L Estim Creat Clear Calc 87 Estimated GFR > 60 Glucose 175 H POC Capillary Glucose 89 125 H Calcium 8.3 L Total Bilirubin 1.2 AST 36 ALT 21 Alkaline Phosphatase 106 Total Protein 6.6 Albumin 3.1 L 04/18/25 04/18/25 05:58 07:43 WBC 2.1 L RBC 3.67 L Hgb 9.1 L Hct 31.2 L MCV 85.0 MCH 24.8 L MCHC 29.2 L RDW 21.3 H Plt Count 128 L MPV 10.4 Immature Gran % (Auto) 0.9 H Neut % (Auto) 37.3 L Lymph % (Auto) 21.2 Heard % (Auto) 39.2 H Eos % (Auto) 0.9 Baso % (Auto) 0.5 Lymph # (Auto) 0.45 L Heard # (Auto) 0.8 H Eos # (Auto) 0.0 Baso # (Auto) 0.0 Abs Immat Gran (auto) 0.02 Absolute Neuts (auto) 0.8 L Absolute Nucleated RBC 0.000 Band Neutrophils % Not Reportable Nucleated RBC % 0.0 Platelet Estimate Slightly decreased % Immature Plt Fraction 3.6 Hypochromasia 1+ Anisocytosis 2+ Macrocytosis 1+ Ovalocytes Occasional Schistocytes None seen Sodium 134 L Potassium 4.0 Chloride 108 H Carbon Dioxide 25 Anion Gap 1 L BUN 11 Creatinine 0.62 L Estim Creat Clear Calc 92 Estimated GFR > 60 Glucose 113 H POC Capillary Glucose 108 H Calcium 8.0 L Total Bilirubin 1.2 AST 35 ALT 19 Alkaline Phosphatase 106 Total Protein 6.6 Albumin 3.0 L
[2025-04-18 14:00] VITALS: BP 143/61; PULSE 73; RESP 18; TEMP 36.9; O2SAT 100
[2025-04-18 21:00] VITALS: BP 128/70; PULSE 70; RESP 20; TEMP 36.8; O2SAT 100
[2025-04-19] MEDS: SODIUM CHLORIDE 0.9% IV 1,000 ML 125 ML IV CONT (03:09)
[2025-04-19] MEDS: ACETAMINOPHEN 325 MG TABLET 650 MG PO (05:28)
[2025-04-19 06:00] VITALS: BP 122/55; PULSE 90; RESP 16; TEMP 36.7; O2SAT 98
[2025-04-19 06:23] LABS: Hematocrit 33.1 % (37.0-47.0); Hemoglobin 9.4 g/dL (12.0-15.0); Immature Granulocyte Percent A 0.4 % (0-0.5); Immature Platelet Fraction Pct 3.8 % (0.9-11.2); Lymphocytes Absolute Auto 0.59 K/mm3 (0.9-3.2); Mean Corpuscular HGB Conc 28.4 g/dl (32-36); Mean Corpuscular Hemoglobin 24.7 pg (26-34); Mean Corpuscular Volume 87.1 fl (80-100); Nucleated Red Blood Cells Absolute Auto 0.000 K/mm3 (0.0-0.012); Nucleated Red Blood Cells Perc 0.0 % (0.0-0.2); Platelet Count Result 119 k/mm3 (150-375); Red Blood Count 3.80 M/mm3 (4.2-5.4); White Blood Count 2.4 K/mm3 (4.5-10.0)
[2025-04-19 06:40] LABS: Alanine Aminotransferase 22 U/L (6-35); Albumin Level 3.2 g/dL (3.5-5.1); Alkaline Phosphatase 116 U/L (38-126); Anion Gap 5 mmol/L (4-12); Aspartate Amino Transferase 47 U/L (14-36); Bilirubin,Total 1.3 mg/dL (0.2-1.3); Blood Urea Nitrogen 10 mg/dL (7-17); Calcium 8.5 mg/dL (8.4-10.2); Carbon Dioxide 22 mmol/L (22-30); Chloride 109 mmol/L (98-107); Estimated CRCL calculation 95 ml/min; Estimated Glomerular Filt Rate > 60; Glucose 110 mg/dL (65-110); Potassium 4.2 mmol/L (3.4-5.0); Sodium 136 mmol/L (137-145); Total Protein 7.0 g/dL (6.3-8.2)
[2025-04-19 06:49] LABS: Anisocytosis 1+; Hypochromasia 1+
[2025-04-19 06:50] LABS: Burr Cells 1+; Ovalocytes Occasional; Schistocytes None Seen
[2025-04-19 08:30] VITALS: PULSE 90; RESP 16; O2SAT 98
[2025-04-19] MEDS: cefTRIAXone 1 GM in SODIUM CHLORIDE 0.9% IV 50 ML 100 ML IVPB (08:40)
--- NOTE | 2025-04-19 08:52 | PM.IMPN2 ---
Assessment and Plan Assessment and Plan (1) Acute UTI: Code(s): N39.0 - Urinary tract infection, site not specified Status: Acute Assessment and Plan: UA positive for infection. Patient is asymptomatic. UA with 2+ blood, 3+ leukocyte esterase, 6-10 RBC, 11-20 WBC, 3+ bacteria, negative nitrate. UC - Gram (-) bacilli culture from January grew E coli susceptible to ceftriaxone started on Ceftriaxone on 04/15 - continue PT/OT evals given generalized weakness Recommend SNF Will work with CC regarding placement continue ceftriaxone-follow urine c/s 04/19 sensitivities are back. cr clearance ok, uncomplicated uti- will downgrade to macrobid to complete the course. IV fluids stopped as eating and drinkin well (2) Acute on chronic back pain: Code(s): M54.9 - Dorsalgia, unspecified; G89.29 - Other chronic pain Status: Chronic Assessment and Plan: compression fractures of T11 and L1 sustained in February of 2024 after a fall Patient is allergic to codeine and uses Tylenol at home for back pain acetaminophen 650 mg p.o. q.4 hours p.r.n. Lidoderm patches (3) Diabetes: Qualifiers: Diabetes mellitus type: type 2 Diabetes mellitus senior living insulin use: without senior living use Code(s): E11.9 - Type 2 diabetes mellitus without complications Status: Chronic Assessment and Plan: Patient takes no diabetes medications at home and blood glucose has been stable here. hypoglycemia protocol POC blood glucose ACHS home medication: None correct regimen ordered: Low-dose sliding scale (4) Poor hygiene: Code(s): R46.0 - Very low level of personal hygiene Status: Chronic Assessment and Plan: Concerned that patient is unable to care for herself at with her frequent falls, weakness, and poor personal hygiene. PT/OT consult - recommend SNF care coordination consulted for placement Plan Diet: Heart healthy, consistent carb DVT prophylaxis: SCDs lines/drains: PIV Fluids: 500 mL bolus in ED Code status: DNR Medical Record Review I have reviewed the following patient records and this information was taken into consideration when formulating the assessment and plan.: previous labs Time Spent With Patient Time with patient: 25 - 35 minutes Subjective Date/time seen: 04/19/25 08:52 Interval history: 79-year-old female with a past medical history of frequent falls, diabetes, uterine cancer presents to the ED on 04/15/2025 with complaints of weakness and back pain. 04/18/2025 Patient is seen and examined during morning rounds. She is resting in bed, reading [employer] book, in good spirit. She denies any acute complains. Urine culture shows growth of gram (-) bacilli. Denies chills or fever. Denies any CP, SOB, n/v or abd pain. Urine cultures still pending. No major electrolyte abnormalities. CC following regarding placement. 04/19 pt is seen during morning rounds. She is working with PT/OT. care coordination following for discharge needs. Denies chest pain, sob, n/v/d. Review of Systems Review of Systems: All systems reviewed & are unremarkable except as noted in HPI and below Exam Narrative: GENERAL: alert, oriented, in no distress, pleasant HEAD: Normocephalic, atraumatic. EYES: PERRLA. Conjunctivae clear. NOSE: Normal no drainage. THROAT: Pharynx clear, no exudate. NECK: Trachea midline. No adenopathy, no masses. RESPIRATORY: Airway patent, respirations nonlabored. CTA. CARDIOVASCULAR: Regular rate and rhythm BREASTS: Defer GASTROINTESTINAL: Abdomen is soft and nontender. No organomegaly. Bowel sounds normal in all quadrants. Obese GENITOURINARY: Defer MUSCULOSKELETAL: Moves all extremities. No gross deformities. SKIN: Warm, dry, normal color. See nursing notes for wound documentation to sacrum and bilateral posterior thighs NEURO: A&O X4. Speech clear PSYCHIATRIC: Normal interaction Const: General: comfortable Objective Data Vital Signs Vital Signs: Vital Signs - 24 hr 04/18/25 14:00 04/18/25 20:00 04/18/25 21:00 Temperature 98.4 F 98.2 F Pulse Rate 73 70 Respiratory Rate 18 20 Blood Pressure 143/61 H 128/70 Pulse Oximetry 100 100 Oxygen Delivery Room Air 04/19/25 06:00 Temperature 98.1 F Pulse Rate 90 Respiratory Rate 16 Blood Pressure 122/55 L Pulse Oximetry 98 Oxygen Delivery Intake/Output Intake/Output: Intake & Output 04/16/25 04/17/25 04/18/25 04/19/25 23:59 23:59 23:59 23:59 Intake Total 3130 3805.4 3538.8 1000 Output Total 1600 2075 1700 1200 Balance 1530 1730.4 1838.8 -200 Meds/Results Medications: Active Medications Generic Name Dose Route Start Last Admin Trade Name Freq PRN Reason Stop Dose Admin Acetaminophen 650 mg 04/15/25 13:34 04/19/25 05:28 Acetaminophen 325 Mg Tablet PO 650 mg Q4H PRN Administration Mild Pain (1-3) or Fever Hydrocodone Bitart/Acetaminophen 1 tab 04/15/25 13:34 Hydrocodone/Acetaminophen (*Crx) 5-325 Mg Tablet PO Q4H PRN Pain Rated 4-6 Dextrose 12.5 gm 04/15/25 14:21 Dextrose 50% 25 Gm/50 Ml Syringe IV PUSH PRN PRN Hypoglycemia Protocol Glucagon 1 mg 04/15/25 14:21 Glucagon For Inj 1 Mg Vial IM PRN PRN Hypoglycemia Protocol Glucose 15 gm 04/15/25 14:21 Glucose Oral Gel 15 Gm Of Glucse In 37.5 Gm Tube PO PRN PRN Hypoglycemia Protocol Ceftriaxone Sodium 1 gm/ 50 mls @ 100 mls/hr 04/16/25 09:00 04/19/25 08:40 Sodium Chloride IVPB 100 mls/hr QAM ESTEBAN Administration Dextrose 1,000 mls @ 100 mls/hr 04/15/25 14:21 Dextrose 5% 1,000 Ml IVPB PRN PRN Hypoglycemia Protocol Insulin Aspart 2 - 5 units 04/15/25 17:00 04/19/25 08:44 Insulin Aspart (*Bkc) 100 Units/Ml SUB-Q Not Given [facility] Protocol Lidocaine 1 patch 04/17/25 09:00 04/19/25 08:45 Lidocaine 5% Patch TRANSDERM Not Given DAILY [facility] Ondansetron HCl 4 mg 04/15/25 13:34 Ondansetron Inj 4 Mg/2 Ml Vial IV PUSH Q4H PRN Nausea Labs Labs: Laboratory Results - last 24 hr 04/18/25 04/18/25 04/18/25 11:51 16:37 21:26 WBC RBC Hgb Hct MCV MCH MCHC RDW Plt Count MPV Immature Gran % (Auto) Neut % (Auto) Lymph % (Auto) [place] % (Auto) Eos % (Auto) Baso % (Auto) Lymph # (Auto) [place] # (Auto) Eos # (Auto) Baso # (Auto) Abs Immat Gran (auto) Absolute Neuts (auto) Absolute Nucleated RBC Band Neutrophils % Nucleated RBC % Platelet Estimate % Immature Plt Fraction Hypochromasia Anisocytosis Ovalocytes Betty Cells Schistocytes Sodium Potassium Chloride Carbon Dioxide Anion Gap BUN Creatinine Estim Creat Clear Calc Estimated GFR Glucose POC Capillary Glucose 109 H 95 111 H Calcium Total Bilirubin AST ALT Alkaline Phosphatase Total Protein Albumin 04/19/25 04/19/25 05:52 08:06 WBC 2.4 L RBC 3.80 L Hgb 9.4 L Hct 33.1 L MCV 87.1 MCH 24.7 L MCHC 28.4 L RDW 21.5 H Plt Count 119 L MPV 11.0 H Immature Gran % (Auto) 0.4 Neut % (Auto) 38.5 L Lymph % (Auto) 24.2 [place] % (Auto) 35.7 H Eos % (Auto) 0.8 Baso % (Auto) 0.4 Lymph # (Auto) 0.59 L [place] # (Auto) 0.9 H Eos # (Auto) 0.0 Baso # (Auto) 0.0 Abs Immat Gran (auto) 0.01 Absolute Neuts (auto) 0.9 L Absolute Nucleated RBC 0.000 Band Neutrophils % Not Reportable Nucleated RBC % 0.0 Platelet Estimate Decreased % Immature Plt Fraction 3.8 Hypochromasia 1+ Anisocytosis 1+ Ovalocytes Occasional Betty Cells 1+ Schistocytes None seen Sodium 136 L Potassium 4.2 Chloride 109 H Carbon Dioxide 22 Anion Gap 5 BUN 10 Creatinine 0.60 L Estim Creat Clear Calc 95 Estimated GFR > 60 Glucose 110 POC Capillary Glucose 119 H Calcium 8.5 Total Bilirubin 1.3 AST 47 H ALT 22 Alkaline Phosphatase 116 Total Protein 7.0 Albumin 3.2 L
[2025-04-19 14:00] VITALS: BP 160/54; PULSE 66; RESP 18; TEMP 36.3; O2SAT 100
[2025-04-19] MEDS: NITROFURANTOIN MONOHYD MACROCR 100 MG CAP PO (21:03)
[2025-04-19 21:53] VITALS: BP 150/55; PULSE 67; RESP 17; TEMP 36.6; O2SAT 100
[2025-04-20 05:49] VITALS: BP 140/45; PULSE 71; RESP 18; TEMP 36.1; O2SAT 100
[2025-04-20 05:55] LABS: Hematocrit 31.4 % (37.0-47.0); Hemoglobin 9.1 g/dL (12.0-15.0); Immature Granulocyte Percent A 0.8 % (0-0.5); Immature Platelet Fraction Pct 3.9 % (0.9-11.2); Lymphocytes Absolute Auto 0.52 K/mm3 (0.9-3.2); Mean Corpuscular HGB Conc 29.0 g/dl (32-36); Mean Corpuscular Hemoglobin 24.3 pg (26-34); Mean Corpuscular Volume 84.0 fl (80-100); Nucleated Red Blood Cells Absolute Auto 0.000 K/mm3 (0.0-0.012); Nucleated Red Blood Cells Perc 0.0 % (0.0-0.2); Platelet Count Result 130 k/mm3 (150-375); Red Blood Count 3.74 M/mm3 (4.2-5.4); White Blood Count 2.5 K/mm3 (4.5-10.0)
[2025-04-20 06:11] LABS: Alanine Aminotransferase 24 U/L (6-35); Albumin Level 3.2 g/dL (3.5-5.1); Alkaline Phosphatase 117 U/L (38-126); Anion Gap 0 mmol/L (4-12); Aspartate Amino Transferase 45 U/L (14-36); Bilirubin,Total 1.1 mg/dL (0.2-1.3); Blood Urea Nitrogen 9 mg/dL (7-17); Calcium 8.6 mg/dL (8.4-10.2); Carbon Dioxide 28 mmol/L (22-30); Chloride 107 mmol/L (98-107); Estimated CRCL calculation 92 ml/min; Estimated Glomerular Filt Rate > 60; Glucose 113 mg/dL (65-110); Potassium 4.0 mmol/L (3.4-5.0); Sodium 135 mmol/L (137-145); Total Protein 6.9 g/dL (6.3-8.2)
[2025-04-20 06:46] LABS: Anisocytosis 1+; Hypochromasia 2+; Schistocytes None Seen
[2025-04-20] MEDS: NITROFURANTOIN MONOHYD MACROCR 100 MG CAP PO (09:16)
--- NOTE | 2025-04-20 11:32 | PM.DS ---
DS: Admitting Diagnosis Discharge Date 04/20/25 Admitting Diagnosis UTI DS: Discharge Diagnosis Discharge Diagnosis (1) Acute UTI: Code(s): N39.0 - Urinary tract infection, site not specified Status: Acute (2) Acute on chronic back pain: Code(s): M54.9 - Dorsalgia, unspecified; G89.29 - Other chronic pain Status: Chronic (3) Diabetes: Qualifiers: Diabetes mellitus detention insulin use: without termite inspector use Diabetes mellitus type: type 2 Code(s): E11.9 - Type 2 diabetes mellitus without complications Status: Chronic (4) Poor hygiene: Code(s): R46.0 - Very low level of personal hygiene Status: Chronic DS: Summary Hospital Course Hospital Course: 79-year-old female with a past medical history of frequent falls, diabetes, uterine cancer presents to the ED on 04/15/2025 with complaints of weakness and back pain. Patient states she walked a lot yesterday and her legs gave out. Patient states she mostly sits in the front seat of her car due to it being more comfortable. Patient covered in urine and stool from being unable to ambulate to bathroom. She sits in the car for an extended amount of time reading and listening to the radio. She states she ?sometimes? ambulates inside to go to bed. Denies living in the car and states she has a home. Patient noted to have redness to her sacrum from prolonged sitting and urine and stool skin contact. Denies fevers, chest pain, shortness a breath. Denies saddle anesthesia, loss of bowel bladder control, and denies numbness and tingling in her lower extremities. Patient had a fall on 02/23/2024 which resulted in compression fractures of T11 and L1. Patient was found to have a UA with 2+ blood, 3+ leukocyte esterase, 6-10 rbc's, 11-20 wbc's and 3+ bacteria. She was started on Rocephin. Urine culture came back positive for E coli pansensitive. She was transitioned to p.o. antibiotics. PT and OT worked with patient and recommended SNF at discharge. Patient declines SNF and home health services. Time Spent with Patient Time attestation: Total time spent providing and/or coordinating discharge services: Exam Narrative: GENERAL: Comfortable, no acute distress, poor hygiene HENMT: moist mucous membranes EYES: EOM intact b/l NECK: no lymphadenopathy RESPIRATORY: clear to auscultation, no increased respiratory effort CARDIO: Regular rate and rhythm SKIN/EXTREMITIES: no rashes, no redness or tenderness DS: Data Data Completed and Pending Labs on day of discharge: Labs from last 24 hours 04/20/25 04/20/25 04/20/25 11:06 07:12 05:04 WBC 2.5 L RBC 3.74 L Hgb 9.1 L Hct 31.4 L MCV 84.0 MCH 24.3 L MCHC 29.0 L RDW 21.5 H Plt Count 130 L MPV 10.5 H Immature Gran % (Auto) 0.8 H Neut % (Auto) 37.7 L Lymph % (Auto) 20.9 [place] % (Auto) 39.4 H Eos % (Auto) 1.2 Baso % (Auto) 0.0 L Lymph # (Auto) 0.52 L [place] # (Auto) 1.0 H Eos # (Auto) 0.0 Baso # (Auto) 0.0 Abs Immat Gran (auto) 0.02 Absolute Neuts (auto) 0.9 L Absolute Nucleated RBC 0.000 Band Neutrophils % Not Reportable Nucleated RBC % 0.0 Platelet Estimate Decreased % Immature Plt Fraction 3.9 Hypochromasia 2+ Anisocytosis 1+ Schistocytes None seen Sodium 135 L Potassium 4.0 Chloride 107 Carbon Dioxide 28 Anion Gap 0 L BUN 9 Creatinine 0.62 L Estim Creat Clear Calc 92 Estimated GFR > 60 Glucose 113 H POC Capillary Glucose 98 113 H Calcium 8.6 Total Bilirubin 1.1 AST 45 H ALT 24 Alkaline Phosphatase 117 Total Protein 6.9 Albumin 3.2 L 04/19/25 04/19/25 04/19/25 20:35 16:51 11:17 WBC RBC Hgb Hct MCV MCH MCHC RDW Plt Count MPV Immature Gran % (Auto) Neut % (Auto) Lymph % (Auto) [place] % (Auto) Eos % (Auto) Baso % (Auto) Lymph # (Auto) [place] # (Auto) Eos # (Auto) Baso # (Auto) Abs Immat Gran (auto) Absolute Neuts (auto) Absolute Nucleated RBC Band Neutrophils % Nucleated RBC % Platelet Estimate % Immature Plt Fraction Hypochromasia Anisocytosis Schistocytes Sodium Potassium Chloride Carbon Dioxide Anion Gap BUN Creatinine Estim Creat Clear Calc Estimated GFR Glucose POC Capillary Glucose 135 H 89 105 Calcium Total Bilirubin AST ALT Alkaline Phosphatase Total Protein Albumin Discharge Plan Discharge Consulting providers: Markell Orlando Discharging Clinician: Gillian Asencio Patient Disposition: Home Activity: no preference Diet: diabetic Discharge Instructions: Discharge disposition: Take medications as prescribed Monitor blood pressures Encouraged to continue with yearly vaccinations Return to the emergency department if he developed sudden shortness of breath, chest pain, nausea, vomiting, upset stomach or intractable diarrhea Return to the emergency department if you develop fever greater than 100.4 Follow-up with the primary care physician within 1-2 weeks Thank you for [facility] for your healthcare needs Patient Instructions: Antibiotic Form Patient Language: Maldivian Stand Alone Forms: General Discharge Information Follow-up/Referrals: Yosi Temple MD [Primary Care Provider, Family Practice] Discharge Medications: Continued cholecalciferol (vitamin D3) 125 mcg (5,000 unit) Tablet 125 mcg PO DAILY Qty: 0 acetaminophen 500 mg Tablet 500 mg PO Q6-12H PRN (Reason: Pain) Qty: 30 0RF Date of admission: 04/16/25 09:01 Primary Care Provider: Yosi Temple Admitting Provider: Sona Farah Attending physician on admission: Sona Farah Condition: Stable
[2025-04-20 14:00] VITALS: BP 149/62; PULSE 74; RESP 18; TEMP 36.2; O2SAT 100
== END 2025-04-20 16:04 | disposition home or self-care (01) | DRG 690 ==
LOC: ANHED 08:07 → ANH3MEDSUR 14:25
PROVIDERS: Nurse Practitioner Adult Health; Physician Assistant; Admitting Provider Family Medicine; Emergency Provider Emergency Medicine; PCP Emergency Medicine; Visit Provider Internal Medicine Critical Care Medicine
DX: N39.0 Urinary tract infection, site not specified (principal); B96.20 Unspecified Escherichia coli [E. coli] as the cause of diseases classified elsewhere; R29.6 Repeated falls; E11.9 Type 2 diabetes mellitus without complications; E66.01 Morbid (severe) obesity due to excess calories; G89.29 Other chronic pain; M54.9 Dorsalgia, unspecified; R46.0 Very low level of personal hygiene; Z66 Do not resuscitate; Z85.42 Personal history of malignant neoplasm of other parts of uterus
CPT/HCPCS: 36415; 80048; 80053; 81001; 82948; 83690; 85025; 85055; 87086; 87186; 96361; 96365; 96375; 97110; 97116; 97161; 97166; 97530; 97535; 99285; A9270; G0378; J0696; J1885; J7030; J7040